=== PATIENT | male | born 1955 | race Caucasian/White ===

== ENCOUNTER 2020-05-05 11:14 | Day surgery (SDC) | payer OTHER ==
[2020-05-03 15:04] LABS: Absolute Lymphocytes (CBC) 2.5 K/uL (0.7-4.9); Basophils % 1.1 % (0-1.3); Hematocrit 38.8 % (39.6-49.0); Lymphocytes % 25.8 % (15.3-44.8); MPV 9.1 fL (7.6-11.3); RBC Red Blood Cell Count 4.47 M/uL (4.33-5.43)
[2020-05-03 15:07] LABS: Protime INR 1.01
--- NOTE | 2020-05-03 15:11 | RAD REPORT ---
EXAM DESCRIPTION: RAD - Chest Pa And Lat (2 Views) - 05/03/2020 2:55 pm CLINICAL HISTORY: preop Chest pain. COMPARISON: No comparisons TECHNIQUE: PA and lateral views of the chest were obtained. FINDINGS: The lungs are hyperexpanded compatible with COPD. The heart is upper limit of normal in si ze. No fracture or aggressive bony process. IMPRESSION: COPD without acute process identified.
[2020-05-05] MEDS ORDERED: NA CHLORIDE 0.9% 500 ML ONE (11:31)
[2020-05-05] MEDS ORDERED: HEPA 1000U/500MLS 2,000 UNIT/1,000 ML BAG IV ONE (13:10)
[2020-05-05] MEDS ORDERED: MIDAZOLAM HCL 2 MG/2 ML INJ ONE ×2 (13:10→13:37)
[2020-05-05] MEDS ORDERED: HEPARIN 5000 UNIT/ML 1 ML VIAL ONE ×2 (13:10→13:11)
[2020-05-05] MEDS ORDERED: NICARDIPINE HCL 25 MG/10 ML IV ONE (13:11)
[2020-05-05] MEDS ORDERED: FENTANYL CITR 100 MCG/2 ML ONE (13:11)
[2020-05-05] MEDS ORDERED: LIDOCAINE 1% MPF 30 ML VIAL ONE (13:12)
[2020-05-05] MEDS ORDERED: HYDRALAZINE HCL 20 MG/ML VIAL ONE (13:34)
[2020-05-05] MEDS ORDERED: CLOPIDOGREL 75 MG TABLET ONE (13:54)
[2020-05-05] MEDS ORDERED: ONDANSETRON 4 MG/2 ML VIAL IV PRN (14:26)
[2020-05-05] MEDS ORDERED: ACETAMINOPHEN 500 MG TAB PO PRN (14:26)
--- NOTE | 2020-05-05 14:37 | P.HP ---
Certification for Inpatient Patient admitted to: Observation With expected LOS: <2 Midnights Patient will require the following post-hospital care: None Practitioner: I am a practitioner with admitting privileges, knowledge of patient current condition, hospital course, and medical plan of care. Services: Services provided to patient in accordance with Admission requirements found in Title 42 Section 412.3 of the Code of Federal Regulations Patient History Date of Service: 05/05/20 Primary Care Provider: Dr. Edmond; Cardiology-Dr. Frias Reason for admission: Post heart catheterization History of Present Illness: 64-year-old male with history of hypertension, hyperlipidemia and CAD with prior stent. Patient admitted as observation status post heart catheterization as recommended by Cardiology. Cardiology performed heart catheterization. Multiple areas of stenosis noted. Patient required angioplasty of stenosis with good recovery. Cardiology preferred the patient to remain Overnite for close monitoring due to multiple angioplasties. I was asked to admit the patient. When I saw the patient he was without chest pain, shortness of breath. Patient stable this time. No other complaints identified. Patient to be transferred to the floor. Allergies No Known Allergies Allergy (Verified 05/03/20 14:29) Home medications list reviewed: Yes Home Medications: Aspirin Chewable [Aspirin Chewable*] 81 mg PO DAILY #90 tab.chew 03/04/16 Atorvastatin Calcium [Lipitor*] 80 mg PO BEDTIME #90 tab 03/04/16 Clopidogrel Bisulfate [Plavix*] 75 mg PO DAILY #90 tablet 03/04/16 Metoprolol Succinate [Toprol Xl*] 50 mg PO DAILY #90 tab 03/04/16 - Past Medical/Surgical History Diabetic: No -: HTN -: Hyperlipidemia -: CAD with prior stent -: Former smoker -: Heart catheterization with stent Psychosocial/ Personal History: Patient - Family History Father -: Cancer Mother -: Cancer Brother -: Hypertension Notes: Brothers Maxx and Albert, and sister, Zulma all have htn - Social History Smoking Status: Former smoker Alcohol use: No CD- Drugs: No Caffeine use: Yes Place of Residence: Home Review of Systems General: As per HPI Eyes: Unremarkable ENT: Unremarkable Respiratory: Unremarkable Cardiovascular: Unremarkable Gastrointestinal: Unremarkable Genitourinary: Unremarkable Musculoskeletal: Unremarkable Integumentary: Unremarkable Neurological: Unremarkable Lymphatics: Unremarkable Physical Examination - Vital Signs Temperature: 97.7 F Blood Pressure: 195/96 Pulse: 75 Respirations: 16 - Physical Exam General: Alert, In no apparent distress, Oriented x3, Cooperative HEENT: Atraumatic Neck: Supple Respiratory: Clear to auscultation bilaterally, Normal air movement Cardiovascular: Normal pulses, Regular rate/rhythm Gastrointestinal: Normal bowel sounds, Soft and benign, Non-distended, No tenderness, No masses, No rebound, No guarding Musculoskeletal: No erythema, No tenderness, No warmth Integumentary: No tenderness/swelling, No erythema, No warmth, No cyanosis Neurological: Normal speech, Normal strength at 5/5 x4 extr, Normal tone, Normal affect - Studies Microbiology Data (last 24 hrs): 05/03/20 14:33 Nasopharnyx Coronavirus COVID-19 PCR - Final Assessment and Plan - Plan Impression: Chest pain with CAD prior stent history status post heart catheterization requiring multiple angioplasties Hypertension Hyperlipidemia Former smoker Plan: Chest pain with CAD prior stent history status post heart catheterization requiring multiple angioplasties: Patient admitted for observation. Patient status post heart catheterization requiring multiple angioplasties due to stenosis. Cardiology recommends to monitor Overnite. Will continue with aspirin, Plavix, Lipitor high dose and metoprolol. Will continue monitor closely. Will provide IV fluids for the next 6 hr then Hep-Lock. Anticipate stability Overnite and discharge in the morning. Case discussed at length with cardiology. Hypertension: Continue metoprolol. Hyperlipidemia: Continue Lipitor Former smoker: Patient has been smoke free for several years. Discharge Plan: Home Plan to discharge in: 24 Hours - Advance Directives Does patient have a Living Will: No Does patient have a Durable POA for Healthcare: No - Code Status/Comfort Care Code Status Assessed: Yes (Patient is full code) Time Spent Managing Pts Care (In Minutes): 55
[2020-05-05] MEDS ORDERED: NA CHLORIDE 0.9% 1,000 ML IV SCH (15:00)
[2020-05-05 18:05] VITALS: BMI 24.0
[2020-05-05] MEDS ORDERED: PNEUMOCOCCAL VACCINE 0.5 ML IMVAC ONE (20:00)
[2020-05-05] MEDS: ASPIRIN EC 81 MG TAB PO SCH (20:58)
[2020-05-05] MEDS: METOPROLOL TAR 50 MG TAB PO SCH (20:58)
[2020-05-05] MEDS ORDERED: ATORVASTATIN 80 MG TAB PO SCH (21:00)
--- NOTE | 2020-05-05 22:25 | OP ---
Date of Procedure: 05/05/2020 Surgeon: GREGORY MARIE Procedure Performed: 1.Selective coronary angiogram. 2.Balloon angioplasty of neosyc-pp-uzz left anterior descending in-stent restenoses, lesion length w as 10 mm, stenosis of 90%. LALO-3 flow before and after angioplasty and 0% residual stenosis. 3.Balloon angioplasty of severe mid septal branch 1, which is relatively large artery using 2.5 x 50 mm NC balloon. The length of the lesion is 12 mm, LALO-3 flow before and after PCI and 0% residual stenosis. Complications: None. Access: Right radial artery 6-Irish closed with TR band. Bleeding: Less than 10 mL. Total Contrast Used: Total amount of contrast used 150 mL. Anesthesia: Total sedation time was 60 minutes. Description Of Procedure: After the risks, benefits, and alternatives were explained to the patient, he signed informed consent. Patient was brought into the cardiac catheterization laboratory, preppe d and draped in usual sterile fashion. We used fentanyl and Versed in incremental doses to achieve a dequate moderate sedation. Then, using the pediatric micropuncture kit, we accessed the right radial artery and placed a 6-Irish slender sheath and we took a 6-Irish Zahl catheter into the aortic ro ot over the J-wire, engaged the left main coronary artery and the right coronary artery and took kristel dard views and found severe mid LAD in-stent restenosis and severe septal branch 1 stenosis. Decided to proceed with intervention. Intervention Details: We gave systemic heparin to assure ACT level above 250 throughout the procedur e. Then, we took the 6-Irish EBU 3.5 guide over a J-wire into the aortic root and engaged the left main coronary artery, then we took a short run-through wire across the stenosis of the mid LAD stent and we took 3.5 x 12 mm NC balloon and inflated it to high pressure 20 atmospheres with full expansio n of the stenotic area and resultant LALO-3 flow with 0% restenosis. Then, we took the run-through i nto the septal branch 1 across the severe stenosis. The vessel is at least 2.5 mm vessel, stenosis w as 95% and we used 2.5 x 50 mm NC balloon and had excellent results with 0% residual stenosis and TILA I-3 flow. This concluded the procedure. We took wires and guide out and took the sheath out and mariah montrell TR band with good hemostasis. The patient received 300 mg of Plavix on the table as he has been taken Plavix at home on a regular basis. Impression: 1.Severe mid left anterior descending in-stent restenosis status balloon angioplasty as outlined abo ve with 0% residual stenosis. 2.Severe first septal branch artery stenosis status post balloon angioplasty as above with excellent results. Recommendations: 1.Observe overnight on telemetry. 2.Continue Plavix 75 mg daily, starts tomorrow and aspirin 81 mg daily, and a large high dose of sta tin, Lipitor 80 mg at bedtime. 3.Aggressive cardiac risk factor modification. 4.The patient is to be followed in the clinic within 4 hours post discharge. SR/MODL Voice ID: [id number] Report ID: [id number]
[2020-05-06 06:43] LABS: Magnesium 2.4 mg/dL (1.8-2.4); Potassium 4.2 mmol/L (3.5-5.1)
[2020-05-06] MEDS: METOPROLOL TAR 50 MG TAB PO SCH (07:49)
[2020-05-06] MEDS: ASPIRIN EC 81 MG TAB PO SCH (07:49)
[2020-05-06 07:52] VITALS: TEMP 98.4
--- NOTE | 2020-05-06 08:00 | DS ---
Date of Discharge: 05/06/2020 The patient was admitted on 05/05/2020 as an outpatient to Dr. Frias's service. He was discharged o n 05/06/2020. Admission Diagnoses: Coronary artery disease and unstable angina. Discharge Diagnoses: Coronary artery disease status post angioplasty of an in-stent restenosis with 0% residual status post balloon angioplasty of the first septal cleat blanker. Discharge Instructions: For him to resume normal activities in 48 hours, stay on a low-fat, low-chol esterol diet. Follow up with Dr. Frias in the next few weeks. He does have an echocardiogram sched uled next . Discharge Prescription: Aspirin, Lipitor, metoprolol, and Plavix. Hospital Course: Mr. Aguirre is 64, was admitted as an outpatient for a heart catheterization, under went an angioplasty of his LAD of an in-stent restenosis. He underwent an angioplasty of septal perf orators that were very successful. Overnight, his right wrist entry site for the catheterization was intact without any hematoma. Telemetry shows sinus rhythm. He has no complaint. His examination i s normal. He will be discharged today to follow up as stated earlier. MARY/LIZBETH Voice ID: [id number] Report ID: [id number]
[2020-05-06 08:31] VITALS: O2SAT 99
[2020-05-06] MEDS ORDERED: ENOXAPARIN 40 MG/0.4 ML SQ SCH (09:00)
[2020-05-06] MEDS ORDERED: CLOPIDOGREL 75 MG TABLET PO SCH (09:00)
[2020-05-06 09:04] VITALS: BP 155/78
--- NOTE | 2020-05-06 11:00 | P.PN ---
Subjective Date of Service: 05/06/20 Primary Care Provider: Dr. Edmond; Cardiology-Dr. Frias Chief Complaint: Post heart catheterization Subjective: Doing well Physical Examination - Vital Signs Temperature: 98.4 F Blood Pressure: 155/78 Pulse: 61 Respirations: 16 Pulse Ox (%): 97 - Physical Exam General: Alert, In no apparent distress, Oriented x3, Cooperative HEENT: Atraumatic Neck: Supple Respiratory: Clear to auscultation bilaterally, Normal air movement Cardiovascular: Normal pulses, Regular rate/rhythm Gastrointestinal: Normal bowel sounds, Soft and benign, Non-distended, No tenderness, No masses, No rebound, No guarding Neurological: Normal speech, Normal strength at 5/5 x4 extr, Normal tone, Normal affect - Studies Laboratory Data (last 24 hrs) 05/06/20 05:35: Sodium 142, Potassium 4.2, BUN 16, Creatinine 1.06, Glucose 97, Magnesium 2.4 Medications List Reviewed: Yes Assessment & Plan Discharge Plan: Home Plan to discharge in: 24 Hours Physician Review Additional Text: Impression: Unstable angina, status post heart catheterization requiring angioplasty of InStent restenoses, CAD Hypertension Hyperlipidemia Tobacco abuse Plan: Patient doing well this time. Patient discharge bar cardiology today. Patient without complaints. Patient will continue with aspirin, Plavix, Lipitor and metoprolol at discharge. Patient will continue with a heart healthy diet. Recommendations for the patient follow up with cardiology as directed. Hospital Course: Mr. Aguirre is 64, was admitted as an outpatient for a heart catheterization, underwent an angioplasty of his LAD of an in-stent restenosis. He underwent an angioplasty of septal perforators that were very successful. Ov ramin, his right wrist entry site for the catheterization was intact without any hematoma. Telemetry shows sinus rhythm. He has no complaint. His examination is normal. He will be discharged today to follow up as stated earlier. Time Spent Managing Pts Care (In Minutes): 55
== END 2020-05-06 09:25 | disposition home or self-care (01) ==
LOC: CCL 11:14 → 4TH 14:13 → CCL 05-06 09:25
PROVIDERS: ATTEND Family Medicine
DX: I25.110 Atherosclerotic heart disease of native coronary artery with unstable angina pectoris (principal); T82.855A Stenosis of coronary artery stent, initial encounter; Z11.59 Encounter for screening for other viral diseases; I10 Essential (primary) hypertension; E78.2 Mixed hyperlipidemia; Z79.82 Long term (current) use of aspirin; Z87.891 Personal history of nicotine dependence; Z82.49 Family history of ischemic heart disease and other diseases of the circulatory system; Z80.9 Family history of malignant neoplasm, unspecified
CPT/HCPCS: 85025; 80048; 36415 ×2; 83735; 85610; 85347; 85730; 71046; 92920; 93454; U0002; C1893; C1725; J0360; J1644 ×2; J2250; J3010; J7040; J7030; J1650

== ENCOUNTER 2021-08-03 11:07 | Day surgery (SDC) | payer OTHER ==
[2021-08-02 11:50] LABS: Absolute Lymphocytes (CBC) 1.8 K/uL (0.7-4.9); Basophils % 1.4 % (0-1.3); Lymphocytes % 23.7 % (15.3-44.8); MPV 8.2 fL (7.6-11.3); RBC Red Blood Cell Count 4.42 M/uL (4.33-5.43)
[2021-08-02 11:52] LABS: Protime INR 1.02
[2021-08-02 12:04] LABS: Potassium 4.5 mmol/L (3.5-5.1)
--- NOTE | 2021-08-02 12:11 | RAD REPORT ---
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 Lungs: No evidence of edema or pneumonia. Emphysematous changes. Pleural: No significant pleural effusions or pneumothorax. Cardiac: The heart size is within normal limits. Bones: No acute fractures. Other: IMPRESSION: No acute cardiopulmonary disease.
--- NOTE | 2021-08-02 14:38 | EKG ---
Test Date: 2021-08-02 Test Time: 10:30:00 Improvement Specialist: CHIDI MEASUREMENT RESULTS: Intervals: Rate: 65 WI: 172 QRSD: 96 QT: 408 QTc: 424 [place]: P: 50 WI: 172 QRS: -53 T: 91 INTERPRETIVE STATEMENTS: Normal sinus rhythm Left axis deviation Possible Lateral infarct, age undetermined T wave abnormality, consider anterior ischemia Abnormal ECG Compared to ECG 03/02/2016 06:55:04 T-wave abnormality now present Possible ischemia now present Sinus arrhythmia no longer present Myocardial infarct finding still present Electronically Signed On 08-02-21 14:38:19 CDT by Jefferson Don
[~2021-08-03 11:07] MED LIST: HEPA 1000U/500MLS 2,000 UNIT/1,000 ML BAG IV ONE
[2021-08-03] MEDS ORDERED: NA CHLORIDE 0.9% 500 ML ONE (11:39)
--- NOTE | 2021-08-03 12:55 | OP ---
Date of Procedure: 08/03/2021 Surgeon: GREGORY MARIE Procedure Performed: Selective coronary angiogram. Indication: Abnormal stress test. Access: Right radial artery 6-Tuvaluan closed with TR band. Complications: None. Bleeding: Less than 2 mL. Description Of Procedure: After risks, benefits, and alternatives were explained, the patient agreed to procedure and signed informed consent. The patient was brought into the cardiac catheterization laboratory, prepped and draped in usual sterile fashion. Then, I accessed the right radial artery us ing pediatric micropuncture kit and a 6-Tuvaluan Slender sheath and took a 5-Tu[place]uan [place] 4.0 catheter into the aortic root, engaged the left main and right coronary artery, took standard views. Then, I removed the catheter and sheath, placed TR band with good hemostasis. Findings: 1.Left main; large and normal. 2.LAD; large vessel with mid LAD stent that is patent with 10% to 20% diffuse ISR. Diagonal branche s are normal. S1 branch is a large branch with mid 80% stenosis. 3.Left circumflex; large, codominant circulation. No significant disease. 4.RCA; large codominant circulation. No significant disease. Conclusions: 1.Patent LAD stent. 2.S1 significant disease and will be left for medical management. Plan: Continue aggressive medical management. Cardiac risk factor modification. SR/MODL Voice ID: [id number] Report ID: [id number]
[2021-08-03] MEDS ORDERED: MIDAZOLAM HCL 2 MG/2 ML INJ ONE (13:02)
[2021-08-03] MEDS ORDERED: FENTANYL CITR 100 MCG/2 ML ONE (13:02)
[2021-08-03] MEDS ORDERED: NITROGLYCERIN 100 MCG/ML SYR (for cath lab use only) IV ONE (13:03)
[2021-08-03] MEDS ORDERED: NITROGLYCERIN/D5W 25 MG/250 ML BTL IV ONE (13:03)
[2021-08-03] MEDS ORDERED: HEPARIN 5000 UNIT/ML 1 ML VIAL ONE (13:03)
[2021-08-03] MEDS ORDERED: VERAPAMIL HCL 10 MG/4 ML VIAL IV ONE (13:03)
[2021-08-03 15:02] VITALS: TEMP 97
[2021-08-03 15:08] VITALS: O2SAT 99
[2021-08-03 15:11] VITALS: BP 166/71
== END 2021-08-03 14:46 | disposition home or self-care (01) ==
LOC: CCL 11:07
PROVIDERS: ATTEND Internal Medicine
DX: I25.10 Atherosclerotic heart disease of native coronary artery without angina pectoris (principal); T82.855A Stenosis of coronary artery stent, initial encounter; I10 Essential (primary) hypertension; E78.5 Hyperlipidemia, unspecified; Z95.5 Presence of coronary angioplasty implant and graft; Z87.891 Personal history of nicotine dependence; Z20.822 Contact with and (suspected) exposure to COVID-19; Z82.49 Family history of ischemic heart disease and other diseases of the circulatory system
CPT/HCPCS: 93005; 85025; 80048; 36415; 85610; 85347 ×2; 85730; 71046; 93454; U0003; C1893; J1644 ×2; J2250; J3010; J7040

== ENCOUNTER 2022-10-04 11:00 | Day surgery (SDC) | payer OTHER ==
[2022-10-03 13:33] LABS: Absolute Lymphocytes (CBC) 1.8 K/uL (0.7-4.9); MCV 85.1 fL (80-100); MPV 8.1 fL (7.6-11.3); RBC Red Blood Cell Count 4.69 M/uL (4.33-5.43)
--- NOTE | 2022-10-03 13:47 | RAD REPORT ---
EXAM DESCRIPTION: RAD - Chest Pa And Lat (2 Views) - 10/03/2022 1:22 pm CLINICAL HISTORY: pre op Chest pain. COMPARISON: Chest Pa And Lat (2 Views) dated 08/02/2021; Chest Pa And Lat (2 Views) dated 05/03/2020 TECHNIQUE: PA and lateral views of the chest were obtained. FINDINGS: The lungs are hyperexpanded compatible with COPD. The heart is upper limit of normal in si ze. No fracture or aggressive bony process. IMPRESSION: COPD without acute process identified. The USPSTF recommends annual screening for lung cancer with low-dose CT (LDCT) in adults aged 50 to 80 years who have a 20 pack-year smoking history and currently smoke or have quit within the past 15 years.
[~2022-10-04 11:00] MED LIST changes: +LIDOCAINE 1% 20 ML MDV ONE
[2022-10-04] MEDS ORDERED: NA CHLORIDE 0.9% 500 ML ONE (11:23)
[2022-10-04] MEDS ORDERED: VERAPAMIL HCL 10 MG/4 ML VIAL IV ONE (11:46)
[2022-10-04] MEDS ORDERED: MIDAZOLAM HCL 2 MG/2 ML INJ ONE (11:46)
[2022-10-04] MEDS ORDERED: HEPARIN 10,000 UNIT/10 ML VIAL IV ONE (11:46)
[2022-10-04] MEDS ORDERED: FENTANYL CITR 100 MCG/2 ML ONE (11:46)
[2022-10-04] MEDS ORDERED: HEPARIN 5000 UNIT/ML 1 ML VIAL ONE (11:46)
[2022-10-04] MEDS ORDERED: ATROPINE SULF 1 MG/10 ML SYR IV ONE (11:47)
[2022-10-04] MEDS ORDERED: NITROGLYCERIN 100 MCG/ML SYR (for cath lab use only) IV ONE (11:47)
[2022-10-04 15:06] VITALS: BP 149/83; O2SAT 98
--- NOTE | 2022-10-04 18:51 | OP ---
Date of Procedure: 10/04/2022 Surgeon: GREGORY MARIE Procedures Performed: 1.Selective coronary angiogram. 2.Left heart catheterization. Indication: Abnormal stress test. Access: Right radial artery 6-Syrian closed with TR band. Complications: None. Estimated Blood Loss: Bleeding less than 10 mL. Description Of Procedure: After risks, benefits, and alternatives were explained, patient agreed to proceed and signed informed consent. Patient was brought to the cardiac catheterization laboratory a nd prepped and dressed in usual sterile fashion. Then I accessed right radial artery using pediatric micropuncture kit. I gave fentanyl and Versed in incremental doses to achieve adequate moderate sed ation. Total sedation time was 25 minutes. Then, I used pediatric micropuncture kit to establish ac cess to right radial artery, put 6-Syrian Slender sheath and took 5-Syrian [place] 4 catheter in the ao rtic root, engaged left main and right coronary artery, took standard views and the catheter was push ed over the wire into the LV, measured the LVEDP, and pulling back did not record any gradient. I re moved the catheter and sheath, placed TR band for good hemostasis. Findings: 1.Left main is large and normal. 2.LAD: Large vessel with patent mid LAD stent and has about 10%-20% ISR. There is a large septal b ranch that comes off the LAD with mid 70%-80% stenosis that has been chronically stable and then LAD appears normal after that. 3.Left circumflex is large and codominant and normal. 4.RCA is large and codominant with proximal 20% stenosis. 5.Normal LVEDP at 6 mmHg. Conclusion: 1.Patent left anterior descending artery stent with mild in-stent restenosis. 2.Significant septal 1 branch stenosis, which is chronic and stable. 3.Mild coronary artery disease elsewhere. Plan: Continue current management, medical therapy, and aggressive cardiac risk factor modification. SR/MODL Voice ID: [id number] Report ID: [id number]
== END 2022-10-04 14:20 | disposition home or self-care (01) ==
LOC: PRE 11:00
PROVIDERS: ATTEND Internal Medicine
DX: I25.10 Atherosclerotic heart disease of native coronary artery without angina pectoris (principal); T82.855A Stenosis of coronary artery stent, initial encounter; I10 Essential (primary) hypertension; E78.5 Hyperlipidemia, unspecified; Z87.891 Personal history of nicotine dependence; Z79.82 Long term (current) use of aspirin; Z79.899 Other long term (current) drug therapy; Z82.49 Family history of ischemic heart disease and other diseases of the circulatory system
CPT/HCPCS: 85025; 80048; 36415; 85610; 85730; 71046; 93458; C1893; Q9966; J1644 ×2; J2250; J3010; J7040; J0461

== ENCOUNTER 2024-01-31 17:08 | Inpatient (IN) | payer OTHER ==
[2024-01-31] MEDS ORDERED: MORPHINE 4 MG/ML SYR ONE ×2 (17:45→18:56)
[2024-01-31] MEDS ORDERED: ONDANSETRON 4 MG (ODT) TAB ONE (17:45)
[2024-01-31] MEDS ORDERED: ONDANSETRON 4 MG/2 ML VIAL ONE (17:46)
[2024-01-31 18:01] LABS: Absolute Basophils 0.1 K/uL (0-0.5); Absolute Eosinophils 0.2 K/uL (0-0.5); Absolute Monocytes 0.6 K/uL (0.1-1.3); Absolute Neutrophil 8.6 K/uL (1.8-8.0); Basophils % 0.9 % (0-1.3); Eosinophils % 1.8 % (0-4.4); Hematocrit 30.3 % (39.6-49.0); Hemoglobin 10.6 g/dL (13.6-17.9); MCV 82.7 fL (80-100); Monocytes % 5.6 % (3.3-12.3); Neutrophils % 74.7 % (41.7-73.7); Platelets 241 thou/uL (152-406); RBC Red Blood Cell Count 3.67 M/uL (4.33-5.43); Red Cell Distribution Width 15.3 % (12.1-15.2)
[2024-01-31 18:13] LABS: Anion Gap 10.8 mEq/L (5.0-15.0); Potassium 3.8 mEq/L (3.5-5.1)
--- NOTE | 2024-01-31 18:41 | RAD REPORT ---
EXAM DESCRIPTION: RAD - Femur Left - 01/31/2024 6:03 pm CLINICAL HISTORY: PAIN COMPARISON: No comparisons TECHNIQUE: Left femur, 2 views. FINDINGS: Displaced femoral neck fracture, with cranial apex angulation. There is no dislocation or periosteal reaction noted. No acute or suspicious bony finding. Vascular calcifications. IMPRESSION: Displaced femoral neck fracture as above.
--- NOTE | 2024-01-31 18:43 | RAD REPORT ---
EXAM DESCRIPTION: RAD - Hip Left 2 View - 01/31/2024 6:04 pm CLINICAL HISTORY: PAIN COMPARISON: No comparisons TECHNIQUE: Left hip, AP and frogleg views of the left hip. FINDINGS: Displaced femoral neck fracture with cranial apex angulation. Femoroacetabular joint shows preserved articulation. No acute or destructive bony process seen. IMPRESSION: Displaced femoral neck fracture with cranial apex again old.
--- NOTE | 2024-01-31 18:44 | RAD REPORT ---
EXAM DESCRIPTION[facility] 6:04 pm CLINICAL HISTORY: preop. Hypertension COMPARISON: Chest Single View dated 02/28/2023; Chest Pa And Lat (2 Views) dated 10/03/2022; Chest Pa And Lat (2 Views) dated 08/02/2021; Chest Pa And Lat (2 Views) dated 05/03/2020 TECHNIQUE: Portable AP view of the chest. FINDINGS: The lungs are clear. No pneumothorax or effusion. The cardiomediastinal contours are unre markable. IMPRESSION: No acute cardiopulmonary process.
--- NOTE | 2024-01-31 18:56 | EDPHYS ---
Physician Documentation [facility] Name: Mandeep Aguirre Age: 68 yrs Sex: Male : 1955 Arrival Date: 01/31/2024 Time: 17:08 Bed 20 Private MD: ED Physician Keanu Barker HPI: 01/30 18:26 This 68 yrs old Male presents to ER via EMS with complaints of hip pain. kb 18:26 Patient is a 68-year-old male who presents for left hip pain after turning around and kb falling onto left hip just prior to arrival. Denies any other injury or trauma. Denies hitting head. Denies LOC.. Historical: - Allergies: 17:11 No Known Allergies; mb9 - Home Meds: 17:11 atorvastatin 80 mg Oral tab 1 tab once daily [Active]; metoprolol succinate 50 mg Oral mb9 Tb24 1 tab once daily [Active]; verapamil 120 mg Oral tab 120 mg [Active]; - PMHx: 17:11 Dementia; Hypertension; Myocardial infarction; mb9 - PSHx: 17:11 None; mb9 - Immunization history:: Adult Immunizations up to date. - Social history:: Smoking status: Patient denies any tobacco usage or history of. ROS: 18:26 Constitutional: As per HPI kb Exam: 18:26 Constitutional: This is a well developed, well nourished patient who is awake, alert, kb and in no acute distress. Head/Face: Normocephalic, atraumatic. ENT: Moist Mucous membranes Cardiovascular: Regular rate Respiratory: Respirations even and unlabored. No increased work of breathing. Talking in full sentences Skin: Warm, dry with normal turgor. Normal color. Neuro: Awake and alert, GCS 15, oriented to person, place, time, and situation. Moves all extremities. Normal gait. 18:26 Musculoskeletal/extremity: Extremities: grossly normal except: noted in the left hip: decreased ROM, pain, tenderness, ROM: limited active range of motion, limited active range of motion due to pain, Circulation is intact in all extremities. Sensation intact. Weight bearing: is unable to bear weight, Vital Signs: 17:10 BP 165 / 79; Pulse 74; Resp 18; Temp 97.8; Pulse Ox 100% ; Weight 75.75 kg; Height 5 mb9 ft. 9 in. ; Pain 7/10; 17:42 BP 158 / 75; Pulse 72; Resp 18; Pulse Ox 98% on R/A; mb9 19:00 BP 173 / 89; Pulse 90; Resp 18; Pulse Ox 100% on R/A; mb9 19:15 BP 160 / 80; Pulse 84; Resp 16; Temp 98.3; Pulse Ox 96% on 2 lpm NC; pf1 20:00 BP 150 / 86; Pulse 94; Resp 18; Temp 98.3; Pulse Ox 95% on 2 lpm NC; pf1 17:10 Body Mass Index 24.66 (75.75 kg, 175.26 cm) mb9 17:10 Pain Scale: Adult mb9 MDM: 17:12 Patient medically screened. kb 18:29 Differential diagnosis: hip fracture, intertrochanteric fracture, femoral neck kb fracture, femoral shaft fracture, strain. Data reviewed: vital signs, nurses notes. Historians other than the Patient: EMS: [facility]. 18:50 Consideration of Admission/Observation Patient was admitted/placed on observation. kb Escalation of care including admission/observation considered. Management of patient was discussed with the following: Regional Driver: Dr Evans accepts pt for consult. Would like pt admitted to hospitalist/. Primary Care Provider: Dr Álvarez accepts pt for admission. Counseling: I had a detailed discussion with the patient and/or guardian regarding the historical points, exam findings, and any diagnostic results supporting the discharge/admit diagnosis, lab results, radiology results, the need for further work-up and treatment in the hospital. 01/30 17:47 Order name: CBC with Diff; Complete Time: 18:05 kb 01/30 17:47 Order name: BMP; Complete Time: 18:14 kb 01/30 17:19 Order name: Femur Left XRAY; Complete Time: 18:42 kb 01/30 17:19 Order name: Hip Left 2 View XRAY; Complete Time: 18:55 kb 01/30 17:47 Order name: Chest Single View XRAY; Complete Time: 18:45 kb 01/30 17:47 Order name: EKG; Complete Time: 17:48 kb 01/30 17:47 Order name: IV Start; Complete Time: 18:03 kb 01/30 17:47 Order name: EKG - Nurse/Tech; Complete Time: 18:02 kb Administered Medications: 17:46 CANCELLED (Physician Discretion): morphine4 mg IM once kb 17:46 CANCELLED (Duplicate Order): ondansetron4 mg PO once kb 18:00 Drug: Ondansetron IVP 4 mg IVP once; over 2 minutes Route: IVP; Site: right forearm; mb9 19:22 Follow up: Response: No adverse reaction mb9 18:02 Drug: morphine IVP or IV 4 mg IVP once over 4 mins Route: IVP; Infused Over: 4 mins; mb9 Site: right forearm; 19:22 Follow up: Response: No adverse reaction mb9 18:59 Drug: morphine IVP or IV 4 mg IVP once over 4 mins Route: IVP; Infused Over: 4 mins; mb9 Site: right forearm; 19:22 Follow up: Response: No adverse reaction mb9 Disposition: 20:45 Co-signature as Attending Physician, Keanu Barker MD I reviewed the patient's care rt provided by the Advanced Practice Provider and agree with the diagnosis and treatment plan. Disposition Summary: 01/31/24 18:55 Hospitalization Ordered Notes: Hospitalization Status: Inpatient Admission kb Provider: Hoang Álvarez Location: Telemetry/MedSurg (Inpatient) kb Condition: Stable kb Problem: new kb Symptoms: are unchanged kb Bed/Room Type: Standard Room Assignment: 404(01/31/24 19:11) rv1 Diagnosis - Left femoral neck fracture kb Forms: - Medication Reconciliation Form kb - SBAR form kb - Leadership Thank You Letter kb Signatures: Dispatcher [employer] Janet Lopez FNP-C FNP-Peggy Pitts RN RN mb9 Keanu Barker MD MD rt Nuris Stroud rv1 Corrections: (The following items were deleted from the chart) 17:46 17:45 morphine IM 4 mg IM once ordered. kb kb 17:46 17:45 Ondansetron PO 4 mg PO once ordered. kb kb 18:55 18:50 Management of patient was discussed with the following: Hospitalist: Dr Skylar winters accepts pt for admission. Regional Driver: Dr Evans accepts pt for consult. Would like pt admitted to hospitalist/. kb 19:11 18:55 kb rv1
--- NOTE | 2024-01-31 18:56 | ER ---
Nurse's Notes [facility] Name: Mandeep Aguirre Age: 68 yrs Sex: Male : 1955 Arrival Date: 01/31/2024 Time: 17:08 Bed 20 Private MD: Diagnosis: Left femoral neck fracture Presentation: 01/30 17:10 Chief complaint: EMS states: "toned out for walking, tripping, and falling on the mb9 concrete. Pt states he has pain in his left hip, knee, and skin tear on left elbow. No active bleeding noted. Pt denies LOC, did not hit head, and does not take blood thinners.". Coronavirus screen: Vaccine status: Patient reports receiving the 2nd dose of the covid vaccine. Ebola Screen: No symptoms or risks identified at this time. Initial Sepsis Screen: Does the patient meet any 2 criteria? No. Patient's initial sepsis screen is negative. Does the patient have a suspected source of infection? No. Patient's initial sepsis screen is negative. Risk Assessment: Do you want to hurt yourself or someone else? Patient reports no desire to harm self or others. Onset of symptoms was January 31, 2024. 17:10 Method Of Arrival: EMS: [facility] mb9 17:10 Acuity: CARLIE 3 mb9 Triage Assessment: 17:12 General: Appears in no apparent distress. Behavior is calm, cooperative. Pain: mb9 Complains of pain in pelvis and left leg Pain radiates to left patella Pain currently is 7 out of 10 on a pain scale. Quality of pain is described as throbbing, Pain began suddenly. EENT: No signs and/or symptoms were reported regarding the EENT system. Neuro: [place] Agitation-Sedation Scale (RASS): 0 - Alert and Calm Level of Consciousness is awake, alert, obeys commands, Oriented to person, place, time, situation, Appropriate for age Denies weakness dizziness. Cardiovascular: Patient's skin is warm and dry. Respiratory: Airway is patent Respiratory effort is even, unlabored, Respiratory pattern is regular, symmetrical. GI: No signs and/or symptoms were reported involving the gastrointestinal system. : No signs and/or symptoms were reported regarding the genitourinary system. Derm: Skin is pink, warm \\T\\ dry. Musculoskeletal: Range of motion: limited in left hip and left knee. Historical: - Allergies: 17:11 No Known Allergies; mb9 - Home Meds: 17:11 atorvastatin 80 mg Oral tab 1 tab once daily [Active]; metoprolol succinate 50 mg Oral mb9 Tb24 1 tab once daily [Active]; verapamil 120 mg Oral tab 120 mg [Active]; - PMHx: 17:11 Dementia; Hypertension; Myocardial infarction; mb9 - PSHx: 17:11 None; mb9 - Immunization history:: Adult Immunizations up to date. - Social history:: Smoking status: Patient denies any tobacco usage or history of. Screenin:[facility] ED Fall Risk Assessment (Adult) History of falling in the last 3 months, mb9 including since admission Yes- single mechanical fall (1 pt) Confusion or Disorientation No (0 pts) Intoxicated or Sedated No (0 pts) Impaired Gait Yes (1 pt) Mobility Assist Device Used No (0 pt) Altered Elimination No (0 pt) Score/Fall Risk Level 3 or more points = High Risk Oriented to surroundings, Maintained a safe environment, Educated pt \\T\\ family on fall prevention, incl call for assistance when getting out of bed. Abuse screen: Denies threats or abuse. Nutritional screening: No deficits noted. Tuberculosis screening: No symptoms or risk factors identified. Assessment: 17:13 Reassessment: see triage assessment. mb9 18:48 Reassessment: Patient and/or family updated on plan of care and expected duration. Pain mb9 level reassessed. Patient is alert, oriented x 3, equal unlabored respirations, skin warm/dry/pink. Patient states feeling better. Patient states symptoms have improved. 19:00 General: Appears in no apparent distress. uncomfortable, well groomed, well developed, pf1 Behavior is calm, cooperative, appropriate for age, quiet. 19:00 Pain: Complains of pain in left hip Pain began today. Neuro: No deficits noted. Level pf1 of Consciousness is awake, alert, obeys commands, Oriented to Appropriate for age cognitive impairment per stated . Cardiovascular: No deficits noted. Capillary refill < 3 seconds Patient's skin is warm and dry. Respiratory: Airway is patent Respiratory effort is even, unlabored, Respiratory pattern is regular, symmetrical, Ventilator assessment: Patient currently on 02 2LNC after morphine was giving. GI: No deficits noted. No signs and/or symptoms were reported involving the gastrointestinal system. : No deficits noted. No signs and/or symptoms were reported regarding the genitourinary system. EENT: No deficits noted. No signs and/or symptoms were reported regarding the EENT system. Derm: Wound noted left hand and left elbow Wound is abrasions. Musculoskeletal: Reports pain in left hip and left leg. 20:00 Reassessment: Patient appears in no apparent distress at this time. Patient and/or pf1 family updated on plan of care and expected duration. Pain level reassessed. Patient is alert, oriented x 3, equal unlabored respirations, skin warm/dry/pink. 20:14 Reassessment: SEE Reyes confirmed ready for patient on the 4th floor. pf1 Vital Signs: 17:10 BP 165 / 79; Pulse 74; Resp 18; Temp 97.8; Pulse Ox 100% ; Weight 75.75 kg; Height 5 mb9 ft. 9 in. ; Pain 7/10; 17:42 BP 158 / 75; Pulse 72; Resp 18; Pulse Ox 98% on R/A; mb9 19:00 BP 173 / 89; Pulse 90; Resp 18; Pulse Ox 100% on R/A; mb9 19:15 BP 160 / 80; Pulse 84; Resp 16; Temp 98.3; Pulse Ox 96% on 2 lpm NC; pf1 20:00 BP 150 / 86; Pulse 94; Resp 18; Temp 98.3; Pulse Ox 95% on 2 lpm NC; pf1 17:10 Body Mass Index 24.66 (75.75 kg, 175.26 cm) mb9 17:10 Pain Scale: Adult mb9 ED Course: 17:10 Patient arrived in ED. mb9 17:11 Triage completed. mb9 17:12 Janet Mccracken FNP-C is PHCP. kb 17:12 Keanu Barker MD is Attending Physician. kb 17:12 Arm band placed on. mb9 17:13 Peggy Reina RN is Primary Nurse. mb9 17:13 Placed in gown. Bed in low position. Call light in reach. Side rails up X 1. Provided mb9 Education on: pressing call light if needing anything. Client placed on continuous cardiac and pulse oximetry monitoring. NIBP monitoring applied. Door closed. Noise minimized. Warm blanket given. 17:13 No provider procedures requiring assistance completed. mb9 18:03 Inserted saline lock: 18 gauge in right forearm, using aseptic technique. mb9 18:03 EKG done, by ED staff, reviewed by Janet GAMEZ. mb9 18:05 Femur Left XRAY In Process Unspecified. EDMS 18:05 Hip Left 2 View XRAY In Process Unspecified. EDMS 18:06 Chest Single View XRAY In Process Unspecified. EDMS 18:55 Hoang Álvarez MD is Hospitalizing Provider. kb 19:00 Report given to SEE Maya. mb9 20:20 Patient admitted, IV remains in place. pf1 Administered Medications: 17:46 CANCELLED (Physician Discretion): morphine4 mg IM once kb 17:46 CANCELLED (Duplicate Order): ondansetron4 mg PO once kb 18:00 Drug: Ondansetron IVP 4 mg IVP once; over 2 minutes Route: IVP; Site: right forearm; mb9 19:22 Follow up: Response: No adverse reaction mb9 18:02 Drug: morphine IVP or IV 4 mg IVP once over 4 mins Route: IVP; Infused Over: 4 mins; mb9 Site: right forearm; 19:22 Follow up: Response: No adverse reaction mb9 18:59 Drug: morphine IVP or IV 4 mg IVP once over 4 mins Route: IVP; Infused Over: 4 mins; mb9 Site: right forearm; 19:22 Follow up: Response: No adverse reaction mb9 Medication: 17:13 VIS not applicable for this client. mb9 Outcome: 18:55 Decision to Hospitalize by Provider. kb 20:20 Admitted to Med/surg accompanied by tech, family with patient, via stretcher, room 404, pf1 with oxygen, with chart, Report called to faxed to [facility] at 2034 20:20 Condition: stable 20:20 Instructed on the need for admit, Demonstrated understanding of instructions, to family 20:23 Patient left the ED. pf1 Signatures: Dispatcher [employer] EDJanet Farah FNP-C FNP-Peggy Pitts RN RN mb9 Fiordaliza Meza RN RN pf1 Corrections: (The following items were deleted from the chart) 17:47 17:10 Acuity: CARLIE 4 mb9 mb9
[2024-01-31] MEDS: NA CHLORIDE 0.9% 1,000 ML IV SCH (20:58)
[2024-01-31] MEDS: ONDANSETRON 4 MG/2 ML VIAL IV PRN (23:14)
[2024-01-31] MEDS: MORPHINE 4 MG/ML SYR IV PRN (23:14)
[2024-01-31 23:53] VITALS: BMI 22.5
[2024-02-01 04:11] LABS: Absolute Basophils 0.1 K/uL (0-0.5); Absolute Lymphocytes (CBC) 1.4 K/uL (0.7-4.9); Absolute Monocytes 1.1 K/uL (0.1-1.3); Basophils % 0.7 % (0-1.3); Eosinophils % 0.3 % (0-4.4); Hematocrit 32.5 % (39.6-49.0); Hemoglobin 11.3 g/dL (13.6-17.9); Lymphocytes % 8.5 % (15.3-44.8); MCH 28.9 pg (27.0-35.0); MCHC 34.7 g/dL (32.0-36.0); MCV 83.5 fL (80-100); MPV 8.2 fL (7.6-11.3); Monocytes % 6.6 % (3.3-12.3); Neutrophils % 83.9 % (41.7-73.7); Nucleated Red Blood Cells % 0.1 % (0-0); Platelets 244 thou/uL (152-406); Red Cell Distribution Width 15.3 % (12.1-15.2)
[2024-02-01 04:24] LABS: Anion Gap 11.1 mEq/L (5.0-15.0); Potassium 4.1 mEq/L (3.5-5.1)
[2024-02-01] MEDS: Ringers Lactate 1,000 ML IV ONE ×2 (07:31→09:50)
[2024-02-01] MEDS: CEFAZOLIN SODIUM 1 GM/VIAL ONE (07:32)
[2024-02-01] MEDS: METOPROLOL TARTRATE 5 MG/5 ML INJ IV ONE (07:42)
[2024-02-01] MEDS: BUPIVACAINE 0.25% PF 10 ML VIAL ONE (07:45)
[2024-02-01] MEDS: METOPROLOL TARTRATE 5 MG/5 ML INJ IV STA (07:47)
[2024-02-01] MEDS: NITROGLYCERIN 1 GM PKT TD ONE (07:55)
[2024-02-01] MEDS: SUCCINYLCHOLINE 20 MG/ML (10 ML) IV ONE (08:00)
[2024-02-01] MEDS: BUPIVACAINE 0.75% (PF) 2 ML SP ONE (08:03)
[2024-02-01] MEDS ORDERED: propofoL 200 MG/20 ML VIAL IV ONE (08:07)
[2024-02-01] MEDS ORDERED: Phenylephrine HCl 10 MG/ML 1 ML VIAL ONE (08:07)
[2024-02-01] MEDS ORDERED: FENTANYL CITR 100 MCG/2 ML ONE (08:07)
[2024-02-01] MEDS: CEFTRIAXONE 1,000 MG in NA CHLORIDE 0.9% 50 ML IVPB SCH (09:00)
[2024-02-01] MEDS: TRANEXAMIC ACID 1,000 MG/10 ML VIAL IV ONE (09:05)
--- NOTE | 2024-02-01 09:22 | CON ---
Date of Consultation: 02/01/2024 Reason For Consultation: Left hip pain. History Of Present Illness: Mandeep is a 68-year-old male presented to the ER yesterday after sustain ing a fall onto his left side with subsequent pain and inability to bear weight. The patient had x-r ays in the emergency room that demonstrated a displaced left femoral neck fracture. Prior to the fal l, the patient states that he uses a walker to help mobilize. He lives at home. He denies any muscu loskeletal complaints at this time. Review of Systems: As above, otherwise negative. Past Medical History: Includes hypertension, history of NM. Past Surgical History: None. Medications: Atorvastatin, metoprolol, verapamil. Allergies: NO KNOWN DRUG ALLERGIES. Social History: Denies tobacco or alcohol use. Family History: Reviewed and noncontributory. Physical Examination: General: No apparent distress. HEENT: Normocephalic, atraumatic. Neck: Supple. Cardiovascular: Brisk cap refill to all digits. Chest: Nonlabored breathing. Abdomen: Nondistended. Psychiatric: Responsive to exam. Musculoskeletal: Bilateral upper extremities functional range of motion without pain. No gross defo rmities. No obvious dislocations. Right lower extremity functional range of motion without pain. N o gross deformities. No obvious dislocations. Left lower extremity pain with range of motion, left hip. Tenderness to palpation to the left hip. No tenderness to palpation over the knee, tibia or an kle. Sensation grossly intact at the dorsal and plantar foot. Brisk cap refill to all digits. Diagnostic Studies: X-rays of the left hip demonstrate a displaced left femoral neck fracture. Assessment And Plan: Mandeep is a 68-year-old male with a left displaced femoral neck fracture. I di scussed with the patient at length the diagnosis as well as treatment options. Given the displaced f racture, I recommended left partial hip arthroplasty. Risks and benefits associated with the procedu re were discussed with the patient at length and he expressed understanding. We will proceed with gonzales martínez later this morning. CV/MODL Voice ID: [id number] Report ID: [id number]
[2024-02-01 09:24] LABS: Specific Gravity 1.016 (1.005-1.030); Sqamous Epithelial None Seen /HPF (None Seen); Urine Bacteria <20 /HPF (<20); Urine Bilirubin NEGATIVE (Negative); Urine Blood 2+ (Negative); Urine Clarity Turbid (Clear); Urine Color Light-Yellow (Yellow); Urine Culture Reflex Order REFLEXED; Urine Glucose NEGATIVE (Negative); Urine Ketones NEGATIVE (Negative); Urine Micro Reflex YN NO BILL MICROSCOPIC; Urine Nitrite NEGATIVE (Negative); Urine Protein TRACE (Negative); Urine RBC 21-50 /HPF (None Seen); Urine Urobilinogen Normal (Normal); Urine WBC >50 /HPF (<5); Urine WBC Clump Rare /HPF (None Seen)
[2024-02-01] MEDS: BUPIVACAINE 0.25% PF 30 ML VIAL ONE (10:27)
--- NOTE | 2024-02-01 11:00 | P.BOP ---
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
[2024-02-01] MEDS: KETOROLAC 30 MG/ML INJ ONE (11:11)
[2024-02-01] MEDS ORDERED: DOCUSATE NA 100 MG CAP PO PRN (11:13)
[2024-02-01] MEDS ORDERED: TRAMADOL HCL 50 MG TAB PO PRN (11:13)
[2024-02-01 11:39] LABS: Hematocrit 28.6 % (39.6-49.0); Hemoglobin 9.8 g/dL (13.6-17.9)
--- NOTE | 2024-02-01 11:49 | RAD REPORT ---
EXAM DESCRIPTION: RAD - Hip Left 2 View - 02/01/2024 11:43 am CLINICAL HISTORY: postop Postop left hip fracture COMPARISON: Hip Left 2 View dated 01/31/2024 FINDINGS: Left total hip arthroplasty has been performed. No unexpected hardware finding. Lateral sk in eve seen.
--- NOTE | 2024-02-01 12:13 | HP ---
Date of Admission: 02/01/2024 Chief Complaint: Fall and hip pain. History Of Present Illness: This is a 68-year-old male patient who lives at home with family, fell down at home and started complaining of left hip pain. The patient was brought into the emergency room and was diagnosed as having left hip fracture and was admitted to the hospital. Orthopedic consultation was requested from Dr. Evans, who is planning to do surgery this morning. I saw him prior to surgery this morning. He denies any recent febrile illness. No cough, cold, congestion, fever, chills. No chest pain, shortness of breath. No nausea, vomiting, diarrhea. Allergies: NO KNOWN ALLERGIES. Medications: Aspirin 81 mg daily, atorvastatin 80 mg daily at bedtime, lisinopril 20 mg daily at bedtime, metoprolol succinate 50 mg daily, amlodipine 5 mg daily, tamsulosin 0.4 mg daily. Review of Systems: Musculoskeletal: As mentioned above. All other systems reviewed and negative. Past Medical History: Significant for COPD, hypertension, hyperlipidemia, coronary artery disease, benign prostatic hypertrophy, cervical spondylosis, cervical spinal stenosis, and anemia. Past Surgical History: Coronary artery stent placement March 02, 2016. Family History: Father , had congestive heart failure and systemic lupus erythematosus. Mother , had throat cancer. Brother has coronary artery disease and hypertension. Sister with hypertension. Social History: Prior history of smoking, but he quit smoking on March 02, 2016, and quit using alcohol January 2023. Prior to that he was drinking 4-6 beers a day. Physical Examination: Vital Signs: This morning, temperature 98.6, pulse 109, respiratory rate 19, blood pressure 150/85, oxygen saturation 96%, height 5 feet 9 inches, weight 152 pounds. General: Awake, alert, oriented, not in distress. HEENT: Head atraumatic, normocephalic. Conjunctivae nonerythematous. Sclerae white. Mouth, no thrush or edema noted. Ears/Nose, no mass, lesion, discharge noted. Neck: Supple. No JVD, lymph nodes, bruit, thyromegaly noted. Lungs: Bilateral good equal air entry. Clear to auscultation. No rhonchi. No rales. Heart: Normal heart sounds, no murmur or gallop. Abdomen: Soft, bowel sounds normal. No guarding, rigidity, tenderness, mass, hepatosplenomegaly, distention, or bruit noted. Extremities: Left foot is externally rotated. Skin: No rash, ulcer, cellulitis. Lymphatics: No lymph node enlargement in neck, supraclavicular, infraclavicular region. Neuro: No focal neurological deficit. Chest: Unremarkable. External Genitalia: Deferred. Rectal: Deferred. Laboratory Data: Yesterday, white count 11.5, hemoglobin 10.6, platelets 241. This morning, white count 16.6, hemoglobin 11.3, platelets 244. For chemistry yesterday, sodium 140, potassium 3.8, chloride 108, bicarb 25, BUN 29, creatinine 1.26, glucose 109. This morning, sodium 138, potassium 4.1, chloride 105, bicarb 26, BUN 22, creatinine 1.14, glucose 129. X-ray of the hip and femur shows displaced femoral neck fracture on the left side. Chest x-ray, no acute cardiopulmonary changes. EKG normal sinus, no acute ST-T changes. Impression: 1. Left femoral neck fracture. 2. Anemia, chronic, unspecified. 3. Coronary artery disease. 4. Hypertension. 5. Hyperlipidemia. 6. Chronic obstructive pulmonary disease. 7. Chronic anti-platelet therapy. 8. Benign prostatic hypertrophy. 9. Cervical spinal stenosis. Plan: Admit the patient to hospital for further evaluation and management of this problem. The patient is appropriate for inpatient and is expected to spend 2 midnights in hospital. The patient is at acceptable risk from planned left hip fracture surgery, which will be done this morning by Dr. Evans. After surgery, pain medication will be given per order and we will give DVT prophylaxis per order. We will consult Physical therapy after surgery. For hypertension, this morning when I saw him, I ordered 1 dose of IV Lopressor 5 mg slow IV push and nitroglycerin ointment 1 time dose prior to surgery. After the surgery, we will continue antihypertensive medication per order, monitor blood pressure and make adjustment on blood pressure medication as it becomes necessary. For hyperlipidemia, we will continue statin therapy and no need for further intervention. For coronary artery disease, we will go ahead and continue his anti-platelet therapy after surgery and no need for further intervention for that. We will continue his metoprolol also per order. For COPD, there is no need for any further intervention, if necessary we will consider nebulizer treatment as needed. For leukocytosis, we will get a urine specimen. The patient will have a Gamboa catheter placement prior to surgery and I have requested nurse in the holding area to go ahead and collect a urine specimen, sent it for urinalysis and culture and then start Rocephin 1 g IV q.12 hours. Details and plan of treatment discussed with the patient. I will see him tomorrow for followup. SANDRA/LIZBETH Voice ID: [id number] MTDD
[2024-02-01] MEDS: AMLODIPINE 5 MG TAB PO ONE (13:45)
[2024-02-01] MEDS: METOPROLOL TAR 25 MG TAB PO ONE (13:45)
[2024-02-01] MEDS ORDERED: HOME MED 1 EA UNK (Omeprazole [Prilosec] 40 MG Capsule.Dr) PO SCH (13:45)
[2024-02-01] MEDS: ATORVASTATIN 20 MG TAB PO SCH (21:06)
[2024-02-01] MEDS: MEMANTINE HCL 10 MG TABLET PO SCH (21:06)
[2024-02-01] MEDS: FAMOTIDINE 20 MG TAB PO SCH (21:06)
[2024-02-01] MEDS: CARBIDOPA/LEVODOPA 25/100 TAB PO SCH (21:07)
[2024-02-01] MEDS: METOPROLOL TAR 25 MG TAB PO SCH (21:07)
[2024-02-02] MEDS: ACETAMINOPHEN 325 MG TABLET PO PRN (01:46)
[2024-02-02] MEDS: PANTOPRAZOLE 40MG TABLET PO SCH (05:31)
[2024-02-02 07:48] LABS: Absolute Basophils 0.1 K/uL (0-0.5); Absolute Eosinophils 0.1 K/uL (0-0.5); Absolute Monocytes 1.1 K/uL (0.1-1.3); Absolute Neutrophil 11.2 K/uL (1.8-8.0); Basophils % 0.5 % (0-1.3); Eosinophils % 1.1 % (0-4.4); Hematocrit 25.5 % (39.6-49.0); Hemoglobin 8.8 g/dL (13.6-17.9); Lymphocytes % 7.4 % (15.3-44.8); MCH 28.7 pg (27.0-35.0); MCHC 34.3 g/dL (32.0-36.0); MCV 83.7 fL (80-100); MPV 8.1 fL (7.6-11.3); Monocytes % 8.4 % (3.3-12.3); Neutrophils % 82.6 % (41.7-73.7); Nucleated Red Blood Cells % 0.1 % (0-0); Platelets 172 thou/uL (152-406); RBC Red Blood Cell Count 3.05 M/uL (4.33-5.43); Red Cell Distribution Width 15.5 % (12.1-15.2)
[2024-02-02 07:56] LABS: AST/SGOT 35 U/L (15-37); Albumin 2.7 g/dL (3.4-5.0); Albumin/Globulin Ratio 0.8 (1.1-1.8); Alkaline Phosphatase 113 U/L (45-117); Anion Gap 9.7 mEq/L (5.0-15.0); BUN Blood Urea Nitrogen 23 mg/dL (7-18); Bicarbonate 27 mEq/L (21-32); Globulin 3.4 g/dL (2.3-3.5); Glomerular Filtration Rate 56 ml/min (=/>90); Glucose Level 104 mg/dL (74-106); Magnesium 1.8 mg/dL (1.6-2.4); Potassium 3.7 mEq/L (3.5-5.1); Protein, Total 6.1 g/dL (6.4-8.2); Sodium Level 141 mEq/L (136-145)
[2024-02-02 08:02] LABS: ALT/SGPT < 10 U/L (16-61)
[2024-02-02] MEDS: ENOXAPARIN 40 MG/0.4 ML SQ SCH (08:11)
[2024-02-02] MEDS: FOLIC ACID 1 MG TABLET PO SCH (08:14)
[2024-02-02] MEDS: TAMSULOSIN 0.4 MG SR CAP PO SCH (08:14)
[2024-02-02] MEDS: ASPIRIN 81 MG CHEWABLE TABLET PO SCH (08:14)
[2024-02-02] MEDS: lisinopriL 20 MG TAB PO SCH (08:14)
[2024-02-02] MEDS: LORATADINE 10 MG TAB PO SCH (08:14)
[2024-02-02] MEDS: AMLODIPINE 5 MG TAB PO SCH (08:36)
--- NOTE | 2024-02-02 08:48 | RAD REPORT ---
EXAM DESCRIPTION: DX - Hip in OR Left 1 View - 02/01/2024 10:27 am CLINICAL HISTORY: SURGERY AP COMPARISON: Hip Left 2 View dated 01/31/2024; Hip Left 2 View dated 02/01/2024 TECHNIQUE: Single AP view of the left hip acquired intraoperatively. FINDINGS: Left femoral stem component of the left hip arthroplasty, with mastoid air space in place. Other surgical instruments present in the field. Gas along the lateral upper hip incision. Alignment is satisfactory. IMPRESSION: Expected intraoperative findings following placement of left femoral stem component of a left hip arthroplasty.
[2024-02-02] MEDS: FERROUS FUMARATE 324 MG PO SCH (09:00)
[2024-02-02] MEDS ORDERED: PNEUMOCOCCAL VACCINE 0.5 ML IMVAC ONE (09:00)
[2024-02-02] MEDS ORDERED: INFLUENZA VACCINE (for 6+ mo) 0.5 ML DOSE IMVAC ONE (09:00)
[2024-02-02] MEDS ORDERED: MAGNESIUM HYDROXIDE 8% 30 ML PO PRN (10:06)
[2024-02-02] MEDS: Levofloxacin500mg IV 500 MG/100 ML BAG IV SCH (10:08)
--- NOTE | 2024-02-02 11:34 | PN ---
Date of Progress Note: 02/02/2024 Subjective: The patient was seen this morning for followup. No new complaints or problems reported by the patient except some pain in his left hip where he had surgery done for hip fracture yesterday. The patient's and daughter were present in room with him today. He was confused as reported b y patient's and I did explain it to the patient's family in detail that confusion is to be expec chay and it is also expected to improve over period of time. Physical Examination: Vital Signs: Reviewed. Temperature 101.5 this morning with pulse 111, respiratory rate 18, blood pr essure 155/74, oxygen saturation 95% on 2 L nasal cannula oxygen. HEENT: Unremarkable. Lungs: Clear to auscultation. Heart: Sounds normal. Abdomen: Soft. Bowel sounds normoactive. No guarding, rigidity, tenderness, distention. Extremities: No leg edema. Laboratory Data: White count 13.6, hemoglobin 8.8, platelets 172. Sodium 141, potassium 3.7, chlori de 108, bicarb 27, BUN 23, creatinine 1.35, glucose 104. Liver function tests unremarkable. Urine c ulture is growing some bacteria. Definite identification sensitivity result pending. Impression: 1.Left hip fracture, status post surgery. 2.Anemia due to acute blood loss. 3.Dementia. 4.Urinary tract infection. 5.Coronary artery disease. 6.Hyperlipidemia. 7.Encephalopathy, unspecified. Plan: We will go ahead and continue current pain medication. Continue current DVT prophylaxis using Lovenox. We will continue to monitor hemoglobin and blood count including platelet count. Continue current antibiotic, which is ceftriaxone. The patient is still having fever, so I will add Levaquin 500 mg IV daily. Follow up on the urine culture results and then we will decide about culture speci fic antibiotics. Physical Therapy to work with the patient and I have requested inpatient rehab cons ultation as well. I did talk to patient's and daughter, explained them that the confusion is to be expected and with time, it should continue to improve and our goal is to try to get the patient t o inpatient rehab if he qualifies and for some reason, if he does not then he will need to go to [facility]. I will see him tomorrow for followup. SANDRA/MODL Voice ID: [id number] Report ID: [id number]
[2024-02-02] MEDS: HYDROCODONE/APAP 7.5/325 MG TAB PO PRN (14:11)
--- NOTE | 2024-02-02 15:31 | EKG ---
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
[2024-02-02] MEDS: DOCUSATE NA/SENNA CONC 1 TAB PO SCH (20:05)
[2024-02-03 04:11] LABS: Absolute Basophils 0.1 K/uL (0-0.5); Absolute Eosinophils 0.3 K/uL (0-0.5); Absolute Lymphocytes (CBC) 1.3 K/uL (0.7-4.9); Absolute Monocytes 1.1 K/uL (0.1-1.3); Absolute Neutrophil 8.7 K/uL (1.8-8.0); Basophils % 0.5 % (0-1.3); Eosinophils % 2.4 % (0-4.4); Hematocrit 24.2 % (39.6-49.0); Hemoglobin 8.4 g/dL (13.6-17.9); Lymphocytes % 11.8 % (15.3-44.8); MCH 28.9 pg (27.0-35.0); MCHC 34.7 g/dL (32.0-36.0); MCV 83.4 fL (80-100); MPV 8.4 fL (7.6-11.3); Monocytes % 9.6 % (3.3-12.3); Neutrophils % 75.7 % (41.7-73.7); Platelets 147 thou/uL (152-406); RBC Red Blood Cell Count 2.91 M/uL (4.33-5.43); Red Cell Distribution Width 15.3 % (12.1-15.2)
[2024-02-03 04:16] LABS: Anion Gap 8.3 mEq/L (5.0-15.0); Potassium 3.3 mEq/L (3.5-5.1)
[2024-02-03] MEDS: NA CHLORIDE 0.9% 1,000 ML IV SCH (05:25)
[2024-02-03] MEDS: POTASSIUM CL SA 10 MEQ TAB PO ONE (07:59)
[2024-02-03] MEDS: AMLODIPINE 5 MG TAB PO SCH (07:59)
--- NOTE | 2024-02-03 23:23 | PN ---
Date of Progress Note: 02/03/2024 Subjective: The patient was seen this morning for followup. No new complaints or problems reported by him. Lying in bed, not in distress. Physical Examination: Vital Signs: Reviewed. Temperature 98.4, pulse 73, respiratory rate 18, blood pressure 169/81. HEENT: Unremarkable. Lungs: Clear to auscultation. Heart: Sounds normal. Abdomen: Soft. Bowel sounds normal. No guarding, rigidity, tenderness, distention. Extremities: No leg edema. Laboratory Data: White count 11.4, hemoglobin 8.4, platelets 147. Sodium 139, potassium 3.3, chlori de 107, bicarb 27, BUN 21, creatinine 1.14, glucose 135, magnesium 2. Impression: 1.Left hip fracture. 2.Acute blood loss anemia. 3.Acute kidney injury, improved. 4.Hypokalemia. 5.Hypertension. Plan: We will go ahead and continue current antihypertensive medication, but increase dose of amlodi pine from 5 mg once a day to 2 times a day. Continue current pain medication. Continue current DVT prophylaxis. Physical Therapy to start working with the patient and we will request consultation fro inpatient rehab. The patient will be appropriate candidate for inpatient rehab, but once accepted, we will be able to transfer him to inpatient rehab. Replace electrolyte per order and I will see him to [facility]enia for followup. SANDRA/MODL Voice ID: [id number] Report ID: [id number]
[2024-02-04 06:53] LABS: Absolute Basophils 0.1 K/uL (0-0.5); Absolute Eosinophils 0.3 K/uL (0-0.5); Absolute Lymphocytes (CBC) 1.4 K/uL (0.7-4.9); Absolute Monocytes 0.9 K/uL (0.1-1.3); Absolute Neutrophil 7.1 K/uL (1.8-8.0); Basophils % 0.7 % (0-1.3); Eosinophils % 3.6 % (0-4.4); Hematocrit 22.3 % (39.6-49.0); Hemoglobin 7.9 g/dL (13.6-17.9); MCH 29.1 pg (27.0-35.0); MCHC 35.4 g/dL (32.0-36.0); MCV 82.3 fL (80-100); MPV 8.2 fL (7.6-11.3); Monocytes % 8.8 % (3.3-12.3); Neutrophils % 72.9 % (41.7-73.7); Platelets 162 thou/uL (152-406); RBC Red Blood Cell Count 2.71 M/uL (4.33-5.43); Red Cell Distribution Width 15.4 % (12.1-15.2)
[2024-02-04 07:08] LABS: Anion Gap 7.3 mEq/L (5.0-15.0); Magnesium 1.8 mg/dL (1.6-2.4); Potassium 3.3 mEq/L (3.5-5.1)
[2024-02-04] MEDS: POTASSIUM CL SA 10 MEQ TAB PO ONE (09:33)
[2024-02-04 12:36] VITALS: BP 157/75; TEMP 98.7
[2024-02-04 13:04] VITALS: O2SAT 95
[2024-02-04] MEDS ORDERED: ENSURE SURGERY 237 ML CAN PO SCH (21:00)
--- NOTE | 2024-02-04 21:22 | DS ---
Date of Discharge: 02/04/2024 Disposition: Discharged to go to inpatient rehab. Physical Examination: HEENT: Unremarkable. Lungs: Clear to auscultation. Heart: Sounds normal. Abdomen: Soft. Bowel sounds normal. No guarding, rigidity, tenderness, distention. Extremities: No leg edema. Discharge Medications and Instructions: See copy of transfer order for more details. Hospital Course: A 68-year-old pleasant male patient came into emergency room after he had fall at home and complaining of hip pain. Further evaluation revealed presence of left hip fracture. He was admitted to the hospital. Dr. Evans from Orthopedic Surgery was consulted and the patient had surgery done day after admission to the hospital. Postoperatively, he remained stable. Initially after the surgery, the patient had some confusion and altered mental status which resolved rather quickly. He started to participate well with physical therapy. Gamboa catheter was removed and there is no evidence of urinary retention. His urinalysis was abnormal consistent with urinary tract infection, he was started on empiric antibiotics Ceftriaxone and later on Levaquin was added because he continued to have low-grade fever, which slowly has improved. His elevated white count has normalized. His hemoglobin has dropped down, but he does not require any blood transfusion at this point. The patient did have some volume depletion problem which has actually resolved with IV fluid hydration. Today, the patient was accepted to go to inpatient rehab and was discharged in stable condition. I will continue to follow up on the rehab floor. Final Diagnoses: 1. Left femoral neck fracture. 2. Anemia, chronic, unspecified. 3. Anemia due to acute blood loss. 4. Coronary artery disease. 5. Hypertension. 6. Urinary tract infection. 7. Hyperlipidemia. 8. Chronic obstructive pulmonary disease. 9. Chronic anti-platelet therapy. 10. Benign prostatic hypertrophy. 11. Cervical spinal stenosis. Laboratory Data: Upon admission, white count 11.5, hemoglobin 10.6, platelets 241, and day after admission, white count went up to 16.6. Upon admission, sodium 140, potassium 3.8, chloride 108, bicarb 25, BUN 29, creatinine 1.26, glucose 109. Last blood work today, white count 9.8, hemoglobin 7.9, platelets 162. Sodium 138, potassium 3.3, chloride 106, bicarb 28, BUN 16, creatinine 1.05, glucose 117. SANDRA/MODL Voice ID: [id number] Report ID: [id number] MTDGrayson
--- NOTE | 2024-02-05 09:36 | P.PN ---
Subjective Date of Service: 02/05/24 Chief Complaint: s/p left hip kale pain controlled; some confusion overnight per the patient's Physical Examination - Vital Signs Temperature: 98.7 F Blood Pressure: 157/75 Pulse: 92 Respirations: 16 Pulse Ox (%): 97 - Physical Exam General: Alert, In no apparent distress Musculoskeletal: Other (LLE: dressing c/d/i; +EHL/FHL/GSC/TA; brisk capillary refill in all digits) Assessment And Plan - Plan Mandeep is a 68 yo male s/p left hip hemiarthroplasty POD#1 -acute expected postoperative blood loss anemia; continue to monitor h/h -lovenox for DVT prophylaxis -continue with PT; WBAT LLE with posterior hip precautions
== END 2024-02-04 15:37 | DRG 522 ==
LOC: ER 17:08 → ERHOLD 18:56 → 4TH 19:25
PROVIDERS: ADMIT Internal Medicine; ATTEND Internal Medicine
PROC: 0T9B70Z Drainage of Bladder with Drainage Device, Via Natural or Artificial Opening (ICD-10-PCS; 2024-01-31)
PROC: 0SRS0JA Replacement of Left Hip Joint, Femoral Surface with Synthetic Substitute, Uncemented, Open Approach (ICD-10-PCS; principal; 2024-02-01 08:00)
DX: S72.002A Fracture of unspecified part of neck of left femur, initial encounter for closed fracture (principal); D62 Acute posthemorrhagic anemia; N39.0 Urinary tract infection, site not specified; G93.40 Encephalopathy, unspecified; N17.9 Acute kidney failure, unspecified; I10 Essential (primary) hypertension; N40.0 Benign prostatic hyperplasia without lower urinary tract symptoms; E78.5 Hyperlipidemia, unspecified; M48.02 Spinal stenosis, cervical region; E87.6 Hypokalemia; E86.9 Volume depletion, unspecified; J44.9 Chronic obstructive pulmonary disease, unspecified; I25.10 Atherosclerotic heart disease of native coronary artery without angina pectoris; F03.90 Unspecified dementia, unspecified severity, without behavioral disturbance, psychotic disturbance, mood disturbance, and anxiety; I25.2 Old myocardial infarction; Z95.5 Presence of coronary angioplasty implant and graft; Z79.82 Long term (current) use of aspirin; Z87.891 Personal history of nicotine dependence; Z79.899 Other long term (current) drug therapy; W19.XXXA Unspecified fall, initial encounter; Y92.019 Unspecified place in single-family (private) house as the place of occurrence of the external cause; Y93.9 Activity, unspecified; Y99.9 Unspecified external cause status
CPT/HCPCS: 36415; 71045; 80048; 80053; 81001; 82947; 83735; 85014; 85018; 85025; 87086; 87088; 88305; 88311; 93005; 96374; 96375; 97161; 97530; 99285; J0690; J0696; J1650; J2371; J2405; J2704; J3010; J7030; J7120; Q0162

== ENCOUNTER 2024-02-04 10:49 | Inpatient (IN) | payer OTHER ==
[2024-02-04 16:25] VITALS: BMI 23.5
[2024-02-04] MEDS ORDERED: DOCUSATE NA 100 MG CAP PO PRN (16:36)
[2024-02-04] MEDS ORDERED: MAGNESIUM HYDROXIDE 8% 30 ML PO PRN (16:37)
[2024-02-04] MEDS ORDERED: TRAMADOL HCL 50 MG TAB PO PRN (16:42)
[2024-02-04] MEDS ORDERED: ONDANSETRON 4 MG/2 ML VIAL IV PRN (16:43)
[2024-02-04] MEDS: METOPROLOL TAR 25 MG TAB PO SCH (17:22)
[2024-02-04] MEDS: NA CHLORIDE 0.9% 1,000 ML IV SCH (18:15)
[2024-02-04] MEDS: ENSURE SURGERY 237 ML CAN PO SCH (20:00)
[2024-02-04] MEDS: CARBIDOPA/LEVODOPA 25/100 TAB PO SCH (20:04)
[2024-02-04] MEDS: ATORVASTATIN 80 MG TAB PO SCH (20:04)
[2024-02-04] MEDS: FAMOTIDINE 20 MG TAB PO SCH (20:04)
[2024-02-04] MEDS: MEMANTINE HCL 10 MG TABLET PO SCH (20:05)
[2024-02-04] MEDS: DOCUSATE NA/SENNA CONC 1 TAB PO SCH (20:05)
[2024-02-04] MEDS: AMLODIPINE 5 MG TAB PO SCH (20:05)
[2024-02-04] MEDS: CEFTRIAXONE 1,000 MG in NA CHLORIDE 0.9% 50 ML IVPB SCH (23:20)
[2024-02-05 03:58] LABS: Absolute Eosinophils 0.3 K/uL (0-0.5); Absolute Lymphocytes (CBC) 0.8 K/uL (0.7-4.9); Absolute Monocytes 0.7 K/uL (0.1-1.3); Absolute Neutrophil 5.3 K/uL (1.8-8.0); Basophils % 0.7 % (0-1.3); Eosinophils % 4.5 % (0-4.4); Hematocrit 24.6 % (39.6-49.0); Hemoglobin 8.7 g/dL (13.6-17.9); Lymphocytes % 11.7 % (15.3-44.8); MCH 29.1 pg (27.0-35.0); MCHC 35.5 g/dL (32.0-36.0); MCV 82.1 fL (80-100); MPV 8.2 fL (7.6-11.3); Monocytes % 10.2 % (3.3-12.3); Neutrophils % 72.9 % (41.7-73.7); Nucleated Red Blood Cells % 0.1 % (0-0); Platelets 181 thou/uL (152-406); Red Cell Distribution Width 15.2 % (12.1-15.2)
[2024-02-05] MEDS: HYDROCODONE/APAP 7.5/325 MG TAB PO PRN (04:30)
[2024-02-05 04:41] LABS: Albumin 2.2 g/dL (3.4-5.0); Anion Gap 7.7 mEq/L (5.0-15.0); Potassium 3.7 mEq/L (3.5-5.1); Prealbumin 6.4 mg/dL (20-40)
[2024-02-05] MEDS: ENOXAPARIN 40 MG/0.4 ML SQ SCH (07:38)
[2024-02-05] MEDS: lisinopriL 20 MG TAB PO SCH (07:45)
[2024-02-05] MEDS: PANTOPRAZOLE 40MG TABLET PO SCH (07:45)
[2024-02-05] MEDS: FOLIC ACID 1 MG TABLET PO SCH (07:46)
[2024-02-05] MEDS: LORATADINE 10 MG TAB PO SCH (07:47)
[2024-02-05] MEDS: FERROUS SULFATE 325 MG TAB PO SCH (07:47)
[2024-02-05] MEDS: TAMSULOSIN 0.4 MG SR CAP PO SCH (07:47)
[2024-02-05] MEDS: ASPIRIN 81 MG CHEWABLE TABLET PO SCH (07:47)
[2024-02-05] MEDS: levoFLOXacin 500 MG TAB PO SCH (07:51)
[2024-02-05] MEDS ORDERED: FERROUS FUMARATE 324 MG PO SCH (08:00)
[2024-02-05] MEDS ORDERED: Levofloxacin500mg IV 500 MG/100 ML BAG IV SCH (10:00)
[2024-02-05] MEDS: BISACODYL 10 MG RECTAL SUPP PR PRN (15:02)
--- NOTE | 2024-02-05 19:51 | PN ---
Date of Progress Note: 02/05/2024 Subjective: The patient was seen this morning for followup. He was lying in bed sleeping on rehab floor. No new complaints or problems reported overnight by the patient as per my discussion with the nursing staff. The patient did wake up and after talking to me, he went back to sleep. Denies any complaints this morning. Objective: Vital Signs: Reviewed. HEENT: Unremarkable. Lungs: Clear to auscultation. Heart: Sounds normal. Abdomen: Soft. Bowel sounds normal. No guarding, rigidity, tenderness, distention. Extremities: No leg edema. Laboratory Data: White count 7.2, hemoglobin 8.7, platelets 181. Sodium 139, potassium 3.7, chloride 107, bicarb 28, BUN 16, creatinine 1.01. Impression: 1. Left hip fracture. 2. Anemia due to acute blood loss. 3. Hypertension. 4. Urinary tract infection. Plan: We will go ahead and continue current antibiotic, but we will change it to oral antibiotic which will be Levaquin 500 mg daily. Discontinue IV Levaquin and IV ceftriaxone. We will continue current antihypertensive medication and we will discontinue tramadol. I will see him tomorrow for followup. SANDRA/MODL Voice ID: [id number] Report ID: [id number] ARAMIS
[2024-02-05] MEDS: MELATONIN 3 MG TABLET PO PRN (20:30)
--- NOTE | 2024-02-05 21:57 | HP ---
Date of Admission: 02/04/2024 Time Of Service: 1:00 p.m. Chief Complaint: "I fell and broke my hip." History Of Present Illness: Mr. Aguirre is a 68-year-old patient who fell at home onto his left side impacting the left hip area. He developed severe pain and was unable to ambulate. Imaging at the [facility] identified a displaced femoral neck fracture with cranial apex angulation. Blood work found to be dehydrated with creatinine of 3.5, BUN 23, GFR slightly decreased at 56. He was see n by the orthopedic service, who evaluated the patient and determined he is appropriate candidate for surgery and he was seen by Dr. Evans, who performed the surgery on January 31. Dr. Evans performed a le ft hip arthroplasty without complications. Postoperatively, the patient was put on deep vein thrombo sis prophylaxis and antiplatelet therapy. He did receive hydration for his dehydration and his hyper tension was managed. He was treated briefly with antibiotics and had oxygen along with BiPAP. His p ostoperative course has been complicated by a decline in physical functioning and moderate pain with anemia, hypokalemia, and confusion with difficulty maintaining weightbearing precautions. As a resul t, he was functioning well below his baseline level of mobilization, transfers, and activities of denisha ly living. As a result, he is determined to be an appropriate candidate for inpatient rehabilitation where he will receive 24/ [facility], daily physician evaluation. Manager Mail management to help maximize independence and return safely home and minimize rehospitalization. He is therefore admitted to inpatient rehabilitation unit. Past Medical History: COPD, hypertension, dyslipidemia, coronary artery disease, benign prostatic hy pertrophy, cervical spondylosis with cervical stenosis, anemia, coronary artery disease with coronary stent placement on March 02, 2016. Allergies: NO KNOWN DRUG ALLERGIES. X-ray/imaging: Femur x-ray on 01/31/2024 showed displaced femoral neck fracture. Hip x-ray on 01/30, displaced femoral neck fracture with cranial apex angulation. Chest x-ray 01/31/2024 shows no acute cardiopulmonary processes and the hip x-ray on 02/01/2024 shows that the hip arthroplasty was performed. No unexpected hardware findings, then lateral skin eve were seen on the left. Laboratory Studies: White blood cell count 7.2, hemoglobin 8.7, platelets 181. Sodium 139, potassiu m 3.7, chloride 107, carbon dioxide 28, BUN 16, creatinine 1.01, glucose 119, calcium 8.2. Magnesium 2.0. Albumin 2.2. Prealbumin very low at 6.4. Urinalysis is pending. Medications: Tylenol 325 mg every 4 hours as needed, [place] 7.5/325 every 4 hours as needed, Norvasc 5 mg twice daily, aspirin 81 mg daily, Lipitor 80 mg at bedtime, carbidopa and levodopa 2 tablets twi ce daily, Colace 200 mg daily for constipation, Lovenox 40 mg subcutaneously daily, Ensure 237 mL twi ce daily, Pepcid 20 mg at bedtime, ferrous sulfate 325 mg daily, folic acid 1 mg daily, Levaquin 500 mg daily, Prinivil 20 mg daily, Claritin 10 mg daily, milk of magnesia 30 mL daily as needed for cons tipation. It is noted the patient's last bowel movement was 5 days ago. Memantine 10 mg twice daily , Lopressor 25 mg twice daily, Zofran 4 mg every 6 hours as needed, Senokot S 2 at bedtime, Flomax 0. 8 mg daily. Review of Systems: It is noted Mr. Aguirre had some issues of baseline cognitive impairment. He also admits to no bowel movements in about 5 days and mild left surgical site pain and mild swelling in the left lower extre mity. Otherwise systems review is unremarkable. Current Level Of Functioning: Eating is with setup assistance. Oral hygiene, setup assistance. En leting, maximum assistance. Bathing, maximum assistance. Upper body dressing, moderate assistance. Lower body dressing, maximal assistance. Toileting and donning and doffing footwear, rolling right- to-left, yoah-lq-nhxru, kwo-sf-oboyh all maximum assistance. Ambulation, not yet ambulated. Physical Examination: Vital Signs: Blood pressure 153/81, pulse up to 110, respiratory rate 16, temperature 98.7, oxygen s aturation 97%. General: Mr. Aguirre is resting in bed. The speech pathologist is beginning to work with him. HEENT: He does appear normocephalic, atraumatic. Does have poor dentition. Otherwise, sclerae anic teric. Oropharynx is moist. Neck: Supple. Chest: Clear. Heart: Regular. Extremities: Show no significant edema, cyanosis, or clubbing except his postoperative expected find ings in the left hip surgical site. Neuro: Cranial nerves no focal deficits. On motor, some giveaway weakness in left lower extremity w ith no focal deficits there as well. Assessment: Mr. Aguirre is admitted to the rehabilitation unit with impairment category 07, lower ex tremity fracture. His impairment group code is 08.11 status post unilateral hip fracture. Etiologic Diagnosis: Left femoral neck fracture. Additional Diagnoses: Renal insufficiency, anemia, benign prostatic hypertrophy, coronary artery disease, chronic obstructive pulmonary disease, decreased mobi lity, decreased physical functioning, baseline dementia, dyslipidemia, hypertension, hyperkalemia, daiana wel stenosis, postoperative pain. Plan: 1.Mr. Aguirre will have physical, occupational, and speech therapy for 3.5 hours, 5/7 days. 2.Flomax for prostate hypertrophy. 3.Senokot S, Dulcolax suppository, and Fleet Enema as needed for constipation. 4.Protonix for GE reflux. 5.Zofran for nausea. 6.Lopressor 25 mg twice daily for hypertension. 7.Melatonin for insomnia. 8.Continue Namenda 10 mg twice daily for dementia. 9.Complete Levaquin for his urinary tract infection. Prinivil also for his hypertension. For sever e anemia, he has protein supplementation and iron sulfate as well. For DVT prophylaxis, Lovenox 40 m g subcutaneously daily. For his Parkinson's symptoms, Sinemet 25/100 two tablets twice daily, Lipito r for dyslipidemia, aspirin for stroke risk reduction, [place] and Tylenol as needed for pain. Comorbidities That Are Impacting His Rehabilitation: The patient does have at this point severe cons tipation for about 3 days and we will work to help him relieve that. As expressed above also, he has the cognitive impairment and he is working with speech pathology to help improve his thinking proces sing, understanding, and safety awareness and how to follow his precautions, which are weightbearing as tolerated with hip precautions. Rehab Specific Plan: 1.Mr. Aguirre will have physical, occupational, and speech therapy for 3.5 hours, 5/7 days to improv e his ability to transfer from bed to chair, to toilet, to shower. Also, to perform toileting and sh owering. 2.To perform his upper and lower body dressing and donning and doffing footwear. 3.To make safe decisions. 4.Perform activities of daily living without difficulty. 5.Ambulate at least 250 feet with a rolling walker. 6.Propel a wheelchair 250 feet with modified independence. 7.Also go up and down 10 steps with modified independence. 8.Manage all his medications and able to return home with family. 9.If need be, additional help from the services such as orthopedic service, hospitalist service, [facility] patient is being followed by Dr. Álvarez, his primary care physician, will be consulted. Given his c omplex medical condition and risk of further complications, rehabilitation cannot be safely or effect ively performed at the lower level facility such as [facility]. Barriers To Discharge: He does have some cognitive impairment, which is likely worsened by his curre nt situation of pain, postoperative state, electrolyte abnormalities, and urinary tract infection. Concepcion hasa is in working with Speech and that should be improving and at discharge will likely need to continu e speech along with physical and occupational therapy. Length Of Stay: About 12-13 days. Disposition: Home with Home Health and 24-hour care for at least first week to 2 weeks after dischar ge. Prognosis: Good. Rehab Specific Goals: 1.Become independent with upper and lower body dressing, toileting, showering, donning and doffing o f footwear. 2.Independently ambulate 250 feet with rolling walker. 3.Independently propel a wheelchair 250 feet. 4.Independently go up and down 10 steps with bilateral handrails. 5.Perform cognitive functioning with minimal supervision. 6.The above goals were reviewed with Mr. Aguirre and family and he is in agreement. By signing this document, I acknowledge that I personally performed a full physical examination on Mr Gale Aguirre no later than 24 hours after his admission to the inpatient rehabilitation facility and det ermined that he is able to tolerate the above course of treatment at an intensive level for reasonabl e period of time. A detailed individualized plan of care for him will be completed by hospital day 4 based on the preadmission screen, history and physical, and therapy evaluations. CHARLENE/LIZBETH Voice ID: [id number]
[2024-02-06] MEDS ORDERED: BACLOFEN 10 MG TAB PO PRN (15:25)
[2024-02-06] MEDS: CYANOCOBALAMIN 1000MCG/ML INJ IM ONE (16:38)
--- NOTE | 2024-02-06 20:19 | PN ---
Date of Progress Note: 02/06/2024 Subjective: The patient was seen this morning for followup. No new complaints or problems reported by the patient. Lying in bed, not in distress. He was awake, alert, answering questions appropriate ly. Denies any new complaints. Objective: Vital Signs: Reviewed. HEENT: Unremarkable. Lungs: Clear to auscultation. Heart: Sounds normal. Abdomen: Soft. Bowel sounds normal. No guarding, rigidity, tenderness, distention. Extremities: No leg edema. Impression: 1.Left hip fracture. 2.Hypertension. 3.Hyperlipidemia. 4.Anemia, due to acute blood loss. 5.Urinary tract infection. Plan: We will go ahead and continue current antibiotic which is Levaquin. Continue current pain med ication. Continue physical therapy under guidance of Dr. Cardoza. We will continue his current ant ihypertensive medication and I will see him tomorrow for followup. SANDRA/MODL Voice ID: [id number] Report ID: [id number]
[2024-02-06] MEDS: GABAPENTIN 100 MG CAP PO SCH (20:57)
[2024-02-06] MEDS: MAGNESIUM OXIDE 400 MG TAB PO SCH (20:58)
--- NOTE | 2024-02-06 21:25 | PN ---
Date of Progress Note: 02/06/2024 [id number]-hf-[id number] progress note visit. Time Of Service: 1:30 p.m. Subjective: Mr. Aguirre is in the bed. Therapist was just working with him and putting the wedge se parator between his legs to maintain his hip precautions. He was reporting significant pain in the l eft femoral neck fracture site and again pain medications were adjusted to accommodate for that. He was also appearing to be somewhat sleepy at this point, and it is not clear that he has had a good re storative sleep at night. Objective: He has no fevers or chills. No nausea, vomiting. Does have the myalgias, arthralgias of the left lower extremity and surgical site. He has no rash. No active psychiatric issues or gastro intestinal issues. Physical Examination: Vital Signs: Blood pressure 121/62, pulse of 104 from 96, temperature is 98.5, oxygen saturation 92% , respiratory rate 16. General: Again, he is apparently somewhat in pain as he was mobilized, but once resting comfortably, pain is eliminated. HEENT: He has poor dentition; otherwise, normocephalic and atraumatic. Sclerae anicteric. Orophary nx moist. Neck: Supple. Chest: Clear. Extremities: No significant edema in the lower extremities. Laboratory Studies: His prealbumin is very low at 6.4, and albumin 2.2. Medications: Tylenol 325 mg every 4 hours as needed, [place] 7.5/325 every 4 hours as needed, Norvasc 5 mg twice daily, aspirin 81 mg daily, Lipitor 80 mg at bedtime, Dulcolax 10 per rectum as needed for constipation, Sinemet 25/100 two tablets twice daily, Colace 200 mg daily as needed for constipation , Lovenox 40 mg subcutaneously daily, Ensure 237 mL twice daily, Pepcid 20 mg at bedtime, ferrous sul fate 325 mg daily, folic acid 1 mg daily, gabapentin 100 mg twice daily, levofloxacin 500 mg daily, P rinivil mg daily, Claritin 10 mg daily, milk of magnesia 30 mL daily as needed for constip ation, magnesium oxide 400 mg twice daily, melatonin 3 mg at bedtime, Namenda 10 mg twice daily, Lopr essor 25 mg twice daily, Zofran 4 mg every 6 hours as needed, Protonix 40 mg daily, Senokot-S 2 at be dtime, and Flomax 0.8 mg daily. Progress Made With Physical, Occupational And Speech Therapy: Today with physical therapy, he did am bulate 17 feet with maximum assistance twice and also did wheelchair mobilization on multiple occasio ns. Bed mobility with moderate assistance. Multiple gqa-yg-mbmtw transfers and stand to pivot trans fers with moderate to minimum assistance. With occupational therapy, bathing moderate assistance; lo wer body dressing, dependent; upper body dressing, minimum assistance; maximal assistance with supine to sit and edge of bed transfer. Did have improved unsupported sitting balance with contact guard a ssistance, maximal assistance from sit to stand and pivot and on and off wheelchair with a rolling sh ower chair and maximum assistance. Did have some improvement in ability and willing to follow direct ions with the hand and foot placement. With speech therapy, recalled 3 of 3 unrelated pictures after 3 minutes without cues; after 7 minutes, he recalled 2 of 3. Organizational thinking exhibits by eduar hou one concrete item to category with 75% accuracy and maximum verbal cues. Mr. Aguirre is somewhat limited by significant pain in the left femoral neck region. His medications have included multiple modalities for pain with adjustments in the muscle relaxant, baclofen, which is added twice daily as needed for spasms. All medications are continued. He has received a B12 lindsay t 100 today because of the poor energy during the day and will also help him begin to get a restful n ight with melatonin as scheduled 3 mg at bedtime. Assessment: Mr. Aguirre is a 68-year-old patient in rehabilitation unit with left femoral neck fract ure. He has renal insufficiency, significant anemia and malnutrition, prostate hypertrophy, coronary artery disease, chronic obstructive pulmonary disease, decreased mobility, decreased physical functi oning, dyslipidemia, hypertension, hyperkalemia and postoperative pain. Plan: 1.Continue with physical, occupational, and speech therapy for 3.5 hours, 5 of 7 days. 2.He is on multiple pain medications, which, again, have been adjusted to appropriately assist him t o optimize his therapy and minimize pain. Continue with medications for nausea, for GE reflux, DVT p rophylaxis, and B12 injection given for energy during the day. Also continue with the Namenda 10 mg twice daily for dementia, finish Levaquin for his urinary tract infection, Sinemet for Parkinson's. Comorbidities That Are Continuing To Impact Rehabilitation: At this point, significant pain is a fac tor and again pain medications adjusted. At last interaction, previously, which is yesterday, he had significant constipation, no bowel movement for four days and this morning, he had a very good bowel movement and is doing well from that perspective, no longer impacting rehabilitation. Also, his [facility] physician Dr. Álvarez is following him for medical management. CHARLENE/LIZBETH Voice ID: [id number] Report ID: [id number]
[2024-02-07] MEDS: AMLODIPINE 5 MG TAB PO SCH (10:00)
--- NOTE | 2024-02-07 13:22 | PN ---
Date of Progress Note: 02/07/2024 Subjective: Patient was seen this morning for followup. No new complaints or problems reported by patient. He was sitting in chair. This morning, he did get his antihypertensive medication, but subsequently just before my arrival, his systolic blood pressure was in range of 90 to 100 range. The patient was asymptomatic. He was sitting in wheelchair, denied any complaints. Awake, alert, answering questions appropriately. No vomiting. No diarrhea. Objective: Vital Signs: Reviewed. HEENT: Unremarkable. Lungs: Clear to auscultation. Heart: Sounds normal. Abdomen: Soft. Bowel sounds normal. No guarding, rigidity, tenderness, or distention. Extremities: No leg edema. Impression: 1. Left hip fracture. 2. Acute blood loss anemia, stable. 3. Hypertension. Plan: We will go ahead and continue current DVT prophylaxis. Continue metoprolol 25 mg 2 times a day per order and we will hold amlodipine and change lisinopril 20 mg daily to 10 mg 2 times a day and to hold amlodipine and lisinopril both if systolic blood pressure less than 130. Stat EKG was done and it was reviewed. Continue physical therapy under guidance of Dr. Cardoza. I will see him tomorrow for followup. SANDRA/MODL Voice ID: [id number] Report ID: [id number] MTDD
--- NOTE | 2024-02-07 13:26 | P.RH.PN ---
Estimated Length of Stay: 16 Expected Discharge Date: 02/15/24 Discharge Disposition Plan: Home Family Support: Yes Senior Living Goal: Mobility, Transfers, Self Care Vital Signs: Last Vital Signs Temp 98.2 F 02/07/24 08:00 Pulse 93 H 02/07/24 08:01 Resp 12 02/07/24 08:00 BP 134/75 02/07/24 08:01 Pulse Ox 93 02/07/24 08:00 Laboratory: Laboratory Last Values WBC 7.20 thou/uL (4.3-10.9) 02/05/24 03:43 RBC 3.00 M/uL (4.33-5.43) L 02/05/24 03:43 Hgb 8.7 g/dL (13.6-17.9) L D 02/05/24 03:43 Hct 24.6 % (39.6-49.0) L 02/05/24 03:43 MCV 82.1 fL (80-100) 02/05/24 03:43 MCH 29.1 pg (27.0-35.0) 02/05/24 03:43 MCHC 35.5 g/dL (32.0-36.0) 02/05/24 03:43 RDW 15.2 % (12.1-15.2) 02/05/24 03:43 Plt Count 181 thou/uL (152-406) 02/05/24 03:43 MPV 8.2 fL (7.6-11.3) 02/05/24 03:43 Neutrophils % 72.9 % (41.7-73.7) 02/05/24 03:43 Lymphocytes % 11.7 % (15.3-44.8) L 02/05/24 03:43 Monocytes % 10.2 % (3.3-12.3) 02/05/24 03:43 Eosinophils % 4.5 % (0-4.4) H 02/05/24 03:43 Basophils % 0.7 % (0-1.3) 02/05/24 03:43 Absolute Neutrophils 5.3 K/uL (1.8-8.0) 02/05/24 03:43 Absolute Lymphocytes 0.8 K/uL (0.7-4.9) 02/05/24 03:43 Absolute Monocytes 0.7 K/uL (0.1-1.3) 02/05/24 03:43 Absolute Eosinophils 0.3 K/uL (0-0.5) 02/05/24 03:43 Absolute Basophils 0.0 K/uL (0-0.5) 02/05/24 03:43 Sodium 139 mEq/L (136-145) 02/05/24 03:43 Potassium 3.7 mEq/L (3.5-5.1) 02/05/24 03:43 Chloride 107 mEq/L (98-107) 02/05/24 03:43 Carbon Dioxide 28 mEq/L (21-32) 02/05/24 03:43 Anion Gap 7.7 mEq/L (5.0-15.0) 02/05/24 03:43 BUN 16 mg/dL (7-18) 02/05/24 03:43 Creatinine 1.01 mg/dL (0.70-1.30) 02/05/24 03:43 Est GFR (CKD-EPI) 80 ml/min (=/>90) L 02/05/24 03:43 Glucose 119 mg/dL (74-106) H 02/05/24 03:43 POC Glucose 123 mg/dL (65-120) H 02/05/24 20:35 Calcium 8.2 mg/dL (8.5-10.1) L D 02/05/24 03:43 Magnesium 2.0 mg/dL (1.6-2.4) 02/05/24 03:43 Albumin 2.2 g/dL (3.4-5.0) L 02/05/24 03:43 Prealbumin 6.4 mg/dL (20-40) L 02/05/24 03:43 Weight: 159 lb 4.8 oz Wound Present: No Closed Surgical Incision Present: Yes Negative Pressure Wound Therapy Present: No Physician Update: Moderate cognitive impairment is a barrier but he is doing fairly. He is still sleepy during the day. BIMS 12, SLUMS 10, poor short term memory. Met 3/4 short term goals. RW 17' with max assit. Requires continous stimulation to do tasks. Summary: Patient's care plan and [facility] goals have been reviewed and revised as necessary. Please see the Rehabilitation Signature page for all necessary signatures.
[2024-02-07] MEDS: DULOXETINE 30 MG CAP PO SCH (15:12)
[2024-02-07] MEDS: lisinopriL 10 MG TAB PO SCH (21:13)
--- NOTE | 2024-02-08 11:13 | PN ---
Date of Progress Note: 02/08/2024 Subjective: The patient was seen this morning for followup. No new complaints or problems reported by the patient. He was lying in bed, not in distress. Denies any complaints. Denies any hip pain, nausea, vomiting. No constipation problem and daughter who was with him reported that his last bowel movement was yesterday. Objective: Vital Signs: Reviewed. HEENT: Unremarkable. Lungs: Clear to auscultation. Heart: Sounds normal. Abdomen: Soft, bowel sounds normal. No guarding, rigidity, tenderness, or distention. Extremities: No leg edema. Impression: 1.Hip fracture. 2.Hypertension. 3.Anemia due to acute blood loss. 4.Hyperlipidemia. Plan: We will go ahead and continue current medication, continue current antihypertensive medication s as well as current pain medication. Physical therapy to be provided under guidance of Dr. Cardoza and I will see him tomorrow for followup. Blood pressure was stable this morning. SANDRA/MODL Voice ID: [id number] Report ID: [id number]
--- NOTE | 2024-02-09 12:45 | PN ---
Date of Progress Note: 02/09/2024 Subjective: The patient was seen this morning for followup. No new complaints or problems reported by patient. He was lying in bed. His was with him at bedside. Objective: Vital Signs: Reviewed. HEENT: Unremarkable. Lungs: Clear to auscultation. Heart: Sounds normal. Abdomen: Soft. Bowel sounds normal. No guarding, rigidity tenderness distention. Extremities: No leg edema. Impression: 1.Hip fracture. 2.Hypertension. 3.Hyperlipidemia. 4.Anemia due to acute blood loss. 5.Parkinson disease. Plan: We will go ahead and continue current medication. Continue current antihypertensive medicatio n per order. We will continue iron supplement and physical therapy under guidance of Dr. Cardoza. The was present with him at bedside. The patient has lot of dry skin on his legs, which is paper sorter shanell thing for him and I have asked nursing staff to apply skin lotion to the leg. We did talk about discharge planning. Possible discharge date is scheduled for February 15, 2024, and the informed dheeraj haas that she is not sure if she will be able to take care of him at home because she works and during d ay time, patient will have to stay by himself at home, so we did talk about discharge planning and I have asked her to communicate these details with Dr. Cardoza and oncology social worker tomorrow so that way if there is a possibility, then he can be discharged to go to [facility] instead of home as is t hinking about the possibility. SANDRA/MODL Voice ID: [id number] Report ID: [id number]
[2024-02-09] MEDS: ENSURE ENLIVE 237 ML CAN PO SCH (20:29)
--- NOTE | 2024-02-10 08:18 | P.CNS ---
Date of Consult: 02/10/24 Reason for Consult: painful toenails Allergies No Known Allergies Allergy (Verified 01/31/24 23:19) Home Medications: Atorvastatin Calcium [Lipitor*] 80 mg PO BEDTIME #90 tab 03/04/16 Aspirin Chewable [Aspirin Chewable*] 81 mg PO DAILY 02/28/23 Lisinopril [Zestril] 20 mg PO DAILY 02/28/23 Metoprolol Succinate [Toprol Xl*] 50 mg PO DAILY 02/28/23 Amlodipine Besylate 5 mg PO DAILY 01/31/24 Carbidopa/Levodopa 25-100 [Sinemet 25-100] 2 tab PO BID 01/31/24 Famotidine 20 mg PO BEDTIME 01/31/24 Ferrocite 324 mg PO DAILY 01/31/24 Folic Acid 1 mg PO DAILY 01/31/24 Loratadine [Claritin] 10 mg PO DAILY 01/31/24 Memantine HCl 10 mg PO BID 01/31/24 Omeprazole [Prilosec] 40 mg PO DAILY 01/31/24 Tamsulosin [Flomax] 2 tab PO DAILY 01/31/24 Hydrocodone 7.5/APAP 325 [Cohagen 7.5/325 mg*] 1 tab PO Q4H PRN 02/04/24 traMADol HCL [Ultram*] 50 mg PO Q6H PRN 02/04/24 - Past Medical/Surgical History Diabetic: No -: HTN -: Hyperlipidemia -: CAD with prior stent -: Former smoker -: Parkkinsons -: Heart catheterization with stent Psychosocial/ Personal History: Patient - Family History Father Medical History: Cancer Mother Medical History: Cancer Brother Medical History: Hypertension Notes: Brothers Maxx and Albert, and sister, Zulma all have htn - Social History Smoking Status: Current every day smoker Alcohol use: No CD- Drugs: Yes Caffeine use: No Place of Residence: Home Review of Systems 10-point ROS is otherwise unremarkable Physical Examination Temp Pulse Resp BP Pulse Ox 97.7 F 87 16 141/69 H 95 02/10/24 06:37 02/10/24 07:27 02/10/24 08:09 02/10/24 07:27 02/10/24 08:09 General: Alert, In no apparent distress Cardiovascular: No edema, Abnormal pulses (0/4 dp and pt pulses bilateral feet) Capillary refill: <2 Seconds Musculoskeletal: No clubbing, No swelling, No contractures, No erythema, No tenderness, No warmth Integumentary: No rashes, No breakdown, No significant lesion, No tenderness/swelling, No erythema, No warmth, No cyanosis, Other (absent hair growth bilateral. Thickened hypertrophic toenails with subungual debris bilateral) Neurological: Sensation intact - Problems (1) Tinea unguium Current Visit: Yes Status: Acute (2) care home (current) use of anticoagulants Current Visit: Yes Status: Acute Conclusions/Impression: Mechanical debridement of nails at bedside Physician Review: Patient Assessed, Agree with Above Assessment and Plan
--- NOTE | 2024-02-10 14:27 | EKG ---
Test Date: 2024-02-07 Test Time: 10:21:48 Senior Java Programmer Analyst: ANGELITA MEASUREMENT RESULTS: Intervals: Rate: 111 SD: 164 QRSD: 90 QT: 358 QTc: 486 [place]: P: 58 SD: 164 QRS: -46 T: 59 INTERPRETIVE STATEMENTS: Sinus tachycardia with premature atrial complexes Left anterior fascicular block Septal infarct, age undetermined Lateral infarct, age undetermined Abnormal ECG Compared to ECG 01/31/2024 17:48:49 Atrial premature complex(es) now present Sinus rhythm no longer present Myocardial infarct finding still present Electronically Signed On 02-10-24 14:17:00 CDT by Lele Frias
--- NOTE | 2024-02-10 14:56 | RAD REPORT ---
EXAM DESCRIPTION: CT - Head Brain Wo Cont - 02/10/2024 2:32 pm CLINICAL HISTORY: Alteration of awareness/confusion COMPARISON: 2022 TECHNIQUE: Computed axial tomography of the head was obtained. IV contrast was not requested. All CT scans are performed using dose optimization technique as appropriate and may include automated exposure control or mA/KV adjustment according to patient size. FINDINGS: An intracranial bleed is not seen The ventricles are normal in caliber No extra-axial fluid collection is noted. Prominent cerebral atrophy Moderate low-density areas within periventricular, deep and subcortical white matter likely represent ischemic changes secondary to small vessel disease. Fluid within the sinuses/ mastoids is not seen. IMPRESSION: No acute intracranial abnormality is seen If patient's symptoms persist MRI of the brain would be recommended
[2024-02-10] MEDS: MAGNESIUM OXIDE 400 MG TAB PO SCH (20:59)
--- NOTE | 2024-02-10 21:33 | PN ---
Date of Progress Note: 02/10/2024 Subjective: The patient was seen this morning for followup. No new complaints or problems reported by the patient. Lying in bed, not in distress. Denies any new complaints this morning. Objective: Vital Signs: Reviewed. HEENT: Unremarkable. Lungs: Clear to auscultation. Heart: Sounds normal. Abdomen: Soft. Bowel sounds normal. No guarding, rigidity, tenderness, distention. Extremities: No leg edema. Impression: 1.Hip fracture. 2.Hypertension. 3.Hyperlipidemia. 4.Parkinson disease. 5.Anemia due to acute blood loss. 6.Urinary tract infection. Plan: We will continue current antibiotic. Continue current antihypertensive medication and DVT pro phylaxis. No need for further intervention on anemia except monitoring and physical therapy to be co ntinued under guidance of Dr. Cardoza. SANDRA/MODL Voice ID: [id number] Report ID: [id number]
--- NOTE | 2024-02-10 22:59 | PN ---
Date of Progress Note: 02/10/2024 Time: 1:35 p.m. Subjective: Mr. Aguirre is sitting in a chair beside the bed. He is actually alert, interactive, sp vijaya with family members. Did not have any issues following all commands and denied any significant p ain. At the time of my evaluation, it was reported that the patient did have some jerking episodes, none was observed at the time while I evaluated the patient. Review of Systems: He denied any significant fevers or chills. No myalgias, arthralgias. His family members observed h im and he did not have any other complaints at that point early in the day. It is noted that later o n in the afternoon, patient's family member said while in bed, he did have some apparent brief episod es of jerking return, but those were purposeful activity and that were nonrhythmic and they were nons eizure like. Physical Examination: Vital Signs: Blood pressure 140/69, pulse of 80, respiratory rate 16, temperature 98.4, oxygen satur ation 96%. General: Mr. Aguirre is resting comfortably. He is in no acute distress. HEENT: He appears normocephalic, atraumatic. Sclerae anicteric. Oropharynx moist. Neck: Supple. Chest: Clear. Extremities: He has no significant clubbing, cyanosis, or edema. He does have good hemostasis on th e left femoral neck site fracture repair. Laboratory Studies: No new laboratory studies. X-ray/imaging: There was a head CT scan done as patient's family were worried about him fluctuating and having the possibility of some worsening deficits. The study showed moderate to low-density area s in periventricular deep white matter, likely representing chronic small vessel ischemic disease. T here was no finding of any acute intracranial abnormality. The patient was also seen by Dr. Dl Frausto on the podiatry service, diagnosed with tinea unguium a nd has mechanical debridement of the nails at the bedside. Progress Made With Physical, Occupational, And Speech Therapy: Today with physical therapy, he ambul ated 50 feet, but needed maximum assistance and did that twice. He mobilized wheelchair 120 feet wit h minimum assistance. Also, later in the day while he was somewhat sleepy, he only ambulated about 6 -8 feet, did that 6 times with minimal assistance. Kql-ly-pgsfg transfers from a wheelchair, using a rolling walker was done with moderate assistance. Parallel bars did with moderate assistance as cady moore. With occupational therapy, minimum assistance for sit to stand, moderate assistance for stand piv ot transfer on off toilet. Today with his speech therapy, he did become agitated and attempted to pe rform structured tasks. He was disoriented, could not state where he was and type of information and again he did have the imaging done after that, that is brain imaging. Mr. Aguirre has a fluctuating course at times. He would participate well and then at other times les s participatory. He does not have any jalil seizure-like looking activity from what is described and CT scan of the head shows no acute ischemic hemorrhagic change. Study is remarkable for moderate sm all vessel ischemic disease. Assessment: Mr. Aguirre is a 68-year-old patient in the rehabilitation unit with left femoral neck f racture, status post surgical repair. He does have a fluctuating level of participation and family r eports some brief jerking episodes that are nonseizure-like. He has malnutrition, anemia, prostate h ypertrophy, coronary artery disease, chronic obstructive pulmonary disease, decreased physical functi on, decreased mobility, dyslipidemia, hypertension, postoperative pain. Plan: 1.He will continue with physical, occupational, and speech therapy for 3.5 hours, 5/7 days. 2.He will continue with medications for comorbid conditions. Did have a decrease in his gabapentin to determine if that is a contributing factor to some fluctuating levels of interaction. In addition , he had Cymbalta started that may be considered for decreasing, but his brain CT scan was showing no acute changes. In addition, have a Sinemet for Parkinson's, Namenda for dementia. Comorbidities That Continue To Impact Rehabilitation: The patient began to have some fluctuating lev els of cooperation, which again at times he would cooperate and do well and at other times, seem to n ot participate enthusiastically. In addition, there is a brief jerking noted by the family. It is n ot seizure-like, but appears to be purposeful. LB/MODL Voice ID: [id number] Report ID: [id number]
[2024-02-11] MEDS: MAGNESIUM OXIDE 400 MG TAB PO SCH (09:05)
[2024-02-11] MEDS: LIDOCAINE 4% PATCH TOP SCH (14:05)
[2024-02-11] MEDS: MEGESTROL 40 MG TAB PO SCH (20:20)
--- NOTE | 2024-02-11 23:20 | PN ---
Date of Progress Note: 02/11/2024 Subjective: The patient was seen this morning for followup. No new complaints or problems reported by the patient, lying in bed, not in distress. Objective: Vital Signs: Reviewed. HEENT: Unremarkable. Lungs: Clear to auscultation. Heart: Sounds normal. Abdomen: Soft. Bowel sounds normal. No guarding, rigidity, tenderness, distention. Extremities: No leg edema. Impression: 1.Hip fracture. 2.Anemia. 3.Hypertension. 4.Hyperlipidemia. Plan: We will go ahead and continue current medications. The patient is getting antibiotic for urin inocencia tract infection and we will probably end up stopping it in next day or 2 days. Continue physical therapy under guidance of Dr. Cardoza and continue current antihypertensive medication. I will see him tomorrow for followup. SANDRA/MODL Voice ID: [id number] Report ID: [id number]
--- NOTE | 2024-02-12 00:35 | PN ---
Date of Progress Note: 02/11/2024 Time Of Service: 1:35 p.m. Subjective: Mr. Aguirre is sitting in a chair beside bed. Family at the bedside. He is interactive , appropriate, and alert, showing no evidence of any jerking episodes which apparently may occur at n ighttime. He did agree to participate with all therapy, although this morning, apparently did not do well with speech therapy, appeared to be somewhat sleepy, but did much better with physical therapy and occupational therapy. Objective: No fevers or chills. No nausea or vomiting. His left femoral neck fracture pain is not a disturbance at this point. Physical Examination: Vital Signs: Blood pressure 142/82, pulse of 82, respiratory rate 16, temperature 97.8, oxygen satur ation 95%. General: Mr. Aguirre is sitting in a chair beside the bed. HEENT: He is normocephalic, atraumatic. Sclerae anicteric. Oropharynx moist. Neck: Supple. Chest: Clear. Heart: Regular. Extremities: No significant edema. Postoperative changes expected in left lower extremity from his left femoral neck fracture with good hemostasis. Laboratory Studies: No new laboratory studies. X-ray/imaging: No new x-rays or imaging. Medications: Medications have been reviewed and no additional changes were made, although he does root ve lidocaine patch added. He has magnesium oxide with muscle spasms and medications are continued un changed. Progress Made With Physical, Occupational, And Speech Therapy: Today with physical therapy, he did a mbulate 8 feet 6 times with minimal assistance, maintaining upright posture requiring some cues, sit- to-stand transfers from a wheelchair done with moderate assistance, [id number] transfers and para llel bars with minimum assistance. Earlier, he propelled a wheelchair 100 feet with modified indepen dence. Bed mobility done with moderate assistance. The patient's family has noted and told the ther apist that they are planning to have him go to a [facility]. It is very difficult to manage him at home. With speech, he was mostly nonverbal throughout the session, required maximum verbal tacti le cues to respond, did recall 3 of 3 unrelated pictures and named 5 items per 1 concrete category, b ut required maximum cues. Mr. Aguirre shows some fluctuating attentiveness. In terms of speech, he would do well at 1 point an d then appear not to do well. Today, he did well with physical therapy and very poorly in terms of a ttention at physical therapy, but at the time I evaluated him, he is alert. He promised to work well with them and there was no clear reason why he did not and he just shows not to participate well wit h speech therapy. Assessment: Mr. Aguirre is a 68-year-old patient with left femoral neck fracture, status post surgic al repair. He has cognitive impairment and fluctuating attentiveness, but appears to be able to do m uch better at times. He has malnutrition anemia, prostate hypertrophy, coronary artery disease, lead medical technologist shanell obstructive pulmonary disease, postoperative pain, dyslipidemia, hypertension. Plan: 1.Continue with physical, occupational, and speech therapy for 3.5 hours, 5 of 7 days. 2.He has multiple comorbid conditions, which are managed by primary care physician, Dr. Álvarez. Comorbidities That Are Impacting His Rehabilitation: Again, he has fluctuating levels of attentivene ss and cooperation, which appears to be more voluntary as he can do very well at times and other time s does not seem to participate well. He is again encouraged to participate fully at all times. CHARLENE/LIZBETH Voice ID: [id number] Report ID: [id number]
[2024-02-12] MEDS ORDERED: LIDOCAINE 4% PATCH TOP SCH (08:00)
--- NOTE | 2024-02-12 19:24 | PN ---
Date of Progress Note: 02/12/2024 Subjective: The patient was seen this morning for followup. He was lying in bed. Denies any compla ints. No back pain, chest pain, shortness of breath. No nausea, vomiting. No constipation. Objective: Vital Signs: Reviewed. HEENT: Unremarkable. Lungs: Clear to auscultation. No rales. No wheezing. Not in any respiratory distress. Heart: Sounds normal. Abdomen: Soft. Bowel sounds normoactive. No guarding, rigidity, tenderness, distention. Extremities: No leg edema. Impression: 1.Left hip fracture. 2.Hypertension. 3.Hyperlipidemia. 4.Anemia due to acute blood loss. Plan: We will go ahead and continue current medications. Continue current anticoagulation therapy. Continue physical therapy under guidance of Dr. Cardoza. We will continue current antihypertensive medications and I will see him tomorrow for followup. SANDRA/MODL Voice ID: [id number] Report ID: [id number]
[2024-02-13 04:22] LABS: Absolute Basophils 0.1 K/uL (0-0.5); Absolute Eosinophils 0.2 K/uL (0-0.5); Absolute Lymphocytes (CBC) 2.5 K/uL (0.7-4.9); Absolute Monocytes 0.7 K/uL (0.1-1.3); Absolute Neutrophil 5.8 K/uL (1.8-8.0); Basophils % 0.7 % (0-1.3); Eosinophils % 2.1 % (0-4.4); Hematocrit 23.7 % (39.6-49.0); Hemoglobin 8.3 g/dL (13.6-17.9); Lymphocytes % 26.9 % (15.3-44.8); MCH 28.7 pg (27.0-35.0); MCHC 35.1 g/dL (32.0-36.0); MCV 81.7 fL (80-100); MPV 7.8 fL (7.6-11.3); Monocytes % 7.5 % (3.3-12.3); Neutrophils % 62.8 % (41.7-73.7); Platelets 417 thou/uL (152-406); Red Cell Distribution Width 15.4 % (12.1-15.2)
[2024-02-13 04:36] LABS: Albumin 2.4 g/dL (3.4-5.0); Anion Gap 6.6 mEq/L (5.0-15.0); Magnesium 2.5 mg/dL (1.6-2.4); Potassium 3.6 mEq/L (3.5-5.1); Prealbumin 15.8 mg/dL (20-40)
[2024-02-13 05:23] LABS: Differential Total Cells Count 100; Eosinophils 4 % (0-3); Lymphocytes 26 % (15-42); Monocytes 2 % (0-10); Reactive Lymphocytes 7 %; Segmented Neutrophils 61 % (40-80)
[2024-02-13 05:24] LABS: Blood Morphology Comment NOTED (NOT SEEN); Ovalocytes 2+; Platelet Estimate ADEQ
[2024-02-13] MEDS: CARBIDOPA/LEVODOPA 25/100 TAB PO SCH ×2 (14:01→19:50)
--- NOTE | 2024-02-14 00:48 | PN ---
Date of Progress Note: 02/13/2024 Subjective: The patient was seen this morning for followup. No new complaints or problems reported. Objective: General: The patient lying in bed, not in any distress. Vital Signs: Reviewed. HEENT: Unremarkable. Lungs: Clear to auscultation. Heart: Sounds normal. Abdomen: Soft. Bowel sounds normal. No guarding, rigidity, tenderness, distention. Extremities: No leg edema. Laboratory Data: White count 9.3, hemoglobin 8.3, platelets 417. Sodium 138, potassium 3.6, chlorid e 107, bicarb 28, BUN 27, creatinine 1.23, glucose 103, serum albumin . Impression: 1.Left hip fracture. 2.Anemia due to acute blood loss. 3.Hypertension. 4.Hyperlipidemia. 5.Urinary tract infection. Plan: The patient has received adequate number of days of antibiotic and he is on Levaquin. We will discontinue that. Continue current DVT prophylaxis with Lovenox. Continue physical therapy under gu idance of Dr. Cardoza, and continue current antihypertensive medication. I will see him tomorrow fo r followup. SANDRA/MODL Voice ID: [id number] Report ID: [id number]
--- NOTE | 2024-02-14 01:06 | PN ---
Date of Progress Note: 02/13/2024 Time Of Service: 1:30 a.m. Subjective: Mr. Aguirre is walking out of his room with the therapist. While walking, he did have e pisodes of freezing of the right leg and postural instability falling off to the left. The patient h ad a chair right behind him, was able to get back into the chair. Does have some pain that was going down his arm. It is in his left arm, still holding onto the walker, but he had no injury and he did not fall. Review of Systems: Some pain in the left femoral neck where he has the fracture. Otherwise, no fevers, chills, and no o ther positives on the systems review. He does admit to some confusion, which can fluctuate. Physical Examination: Vital Signs: Blood pressure 109/58, pulse 80, respiratory rate 18, temperature 97.3, oxygen saturati on 98%. General: Mr. Aguirre is resting comfortably. He is in no significant distress. Once he is seated, no significant pain in the left femoral neck region. HEENT: He is normocephalic, atraumatic. Sclerae anicteric. Good hemostasis in left femoral neck rolon rgery site. Laboratory Studies: White blood cell count 9.3, hemoglobin 8.3, platelets 417. Sodium 138, potassiu m 3.6, chloride 107, carbon dioxide 28, BUN 27, creatinine 1.23, glucose 103, calcium 8.5. Magnesium 2.5. Albumin 2.4. Prealbumin improved from 6.4 on the to 15.8 on . X-ray/imaging: No new x-rays or imaging. Medications: His medications have been reviewed. He has now increased regimen of carbidopa/levodopa where he will receive 2 tablets 3 times daily first on awakening and about 6 hours later and then 6 hours following that. All other medications have remained unchanged. Progress Made With Physical, Occupational, And Speech Therapy: Today with physical therapy, he ambul ated with parallel bars 8 feet 6 times with contact guard assistance, mobilized wheelchair 125 feet w ith standby assistance with verbal cues. With occupational therapy, moderate assistance for lower b larisa truncal upright transfers, maximum assistance to go to edge of bed, dependent for toilet hygiene. With speech, answered responsive naming questions with 90% accuracy and moderate assistance. Mr. Aguirre is making fair progress although his condition does fluctuate level of pain, level of minesh rtness, and interaction, but once he is engaged and alert and awake, he follows commands appropriatel y and in no significant deficits in his ability to understand what is required of him and how to darnell in safe. However, the patient does easily forget what he is told and would likely require supervisio n on 24 hour basis to prevent additional injury from a potential fall. Assessment: Mr. Aguirre is a -jycj-loo patient in the rehabilitation unit with left femora l neck fracture, status post surgical repair. He has malnutrition and anemia and those are improving . Prostate hypertrophy, coronary artery disease, chronic obstructive pulmonary disease, dyslipidemia , hypertension, postoperative pain. Plan: 1.Continue with physical, occupational, and speech therapy 3.5 hours, 5 of 7 days. 2.Continue Flomax for prostate hypertrophy, Senokot-S for constipation, Protonix for GE reflux, Ensu re Enlive for malnutrition, Namenda 10 mg twice daily for dementia, Megace for his poor appetite, Ann-Marie nivil 10 mg twice daily for hypertension, folic acid for stroke risk reduction, ferrous sulfate for a nemia, Lovenox for DVT prophylaxis, and Eldon as needed for pain. Comorbidities That Are Impacting Rehabilitation: The patient does appear to have some fluctuating le davin of awareness, at times being very poorly responsive, but at times being fully engaged, responsive , appropriately doing well include following all instructions. He does not have any active seizure-l mikael activity when he is not responsive, but he can be stimulated and will interact. No evidence of new or focal deficits. LB/MODL Voice ID: [id number] Report ID: [id number]
[2024-02-14] MEDS: CARBIDOPA/LEVODOPA 25/100 TAB PO SCH (06:54)
--- NOTE | 2024-02-14 09:57 | PN ---
Date of Progress Note: 02/14/2024 Subjective: The patient was seen this morning for followup. No new complaints or problems reported by the patient. Lying in bed, not in any distress. His was present with him. Objective: Vital Signs: Reviewed. HEENT: Unremarkable. Lungs: Clear to auscultation. Heart: Sounds normal. Abdomen: Soft. Bowel sounds normal. No guarding, rigidity, tenderness, distention. Extremities: No leg edema. Impression: 1.Left hip fracture. 2.Hypertension. 3.Hyperlipidemia. 4.Anemia. Plan: We will go ahead and continue current medications. Dr. Cardoza has adjusted his Sinemet for Parkinson disease, and his magnesium level was slightly high. He is getting 400 mg in the morning an d 800 in the evening, and I have asked nursing staff to change the dose to 400 mg once a day. We darci l continue current antihypertensive medication. Antibiotic, Levaquin was discontinued yesterday. Th e patient probably will have his eve removed from left hip tomorrow. Plan is to discharge him to go to [facility] on February 17. SANDRA/MODL Voice ID: [id number] Report ID: [id number]
[2024-02-14] MEDS ORDERED: CARBIDOPA/LEVODOPA 25/100 TAB PO SCH (12:00)
--- NOTE | 2024-02-14 13:27 | P.RH.PN ---
Estimated Length of Stay: 16 Expected Discharge Date: 02/18/24 Discharge Disposition Plan: Home Family Support: Yes Residential Goal: Mobility, Transfers, Self Care Vital Signs: Last Vital Signs Temp 98.0 F 02/14/24 08:00 Pulse 77 02/14/24 08:00 Resp 16 02/14/24 08:00 BP 149/77 H 02/14/24 08:00 Pulse Ox 96 02/14/24 08:00 Laboratory: Laboratory Last Values WBC 9.30 thou/uL (4.3-10.9) 02/13/24 03:43 RBC 2.90 M/uL (4.33-5.43) L 02/13/24 03:43 Hgb 8.3 g/dL (13.6-17.9) L 02/13/24 03:43 Hct 23.7 % (39.6-49.0) L 02/13/24 03:43 MCV 81.7 fL (80-100) 02/13/24 03:43 MCH 28.7 pg (27.0-35.0) 02/13/24 03:43 MCHC 35.1 g/dL (32.0-36.0) 02/13/24 03:43 RDW 15.4 % (12.1-15.2) H 02/13/24 03:43 Plt Count 417 thou/uL (152-406) H 02/13/24 03:43 MPV 7.8 fL (7.6-11.3) 02/13/24 03:43 Neutrophils % 62.8 % (41.7-73.7) 02/13/24 03:43 Lymphocytes % 26.9 % (15.3-44.8) 02/13/24 03:43 Monocytes % 7.5 % (3.3-12.3) 02/13/24 03:43 Eosinophils % 2.1 % (0-4.4) 02/13/24 03:43 Basophils % 0.7 % (0-1.3) 02/13/24 03:43 Absolute Neutrophils 5.8 K/uL (1.8-8.0) 02/13/24 03:43 Segmented Neutrophils 61 % (40-80) 02/13/24 03:43 Absolute Lymphocytes 2.5 K/uL (0.7-4.9) 02/13/24 03:43 Lymphocytes 26 % (15-42) 02/13/24 03:43 Monocytes 2 % (0-10) 02/13/24 03:43 Absolute Monocytes 0.7 K/uL (0.1-1.3) 02/13/24 03:43 Eosinophils 4 % (0-3) H 02/13/24 03:43 Absolute Eosinophils 0.2 K/uL (0-0.5) 02/13/24 03:43 Absolute Basophils 0.1 K/uL (0-0.5) 02/13/24 03:43 Reactive Lymphocytes 7 % 02/13/24 03:43 Platelet Estimate Adeq 02/13/24 03:43 Ovalocytes 2+ 02/13/24 03:43 Schistocytes 1+ 02/13/24 03:43 Morphology Comment Noted (NOT SEEN) 02/13/24 03:43 Sodium 138 mEq/L (136-145) 02/13/24 03:43 Potassium 3.6 mEq/L (3.5-5.1) 02/13/24 03:43 Chloride 107 mEq/L (98-107) 02/13/24 03:43 Carbon Dioxide 28 mEq/L (21-32) 02/13/24 03:43 Anion Gap 6.6 mEq/L (5.0-15.0) 02/13/24 03:43 BUN 27 mg/dL (7-18) H 02/13/24 03:43 Creatinine 1.23 mg/dL (0.70-1.30) 02/13/24 03:43 Est GFR (CKD-EPI) 63 ml/min (=/>90) L 02/13/24 03:43 Glucose 103 mg/dL (74-106) 02/13/24 03:43 POC Glucose 123 mg/dL (65-120) H 02/05/24 20:35 Calcium 8.5 mg/dL (8.5-10.1) 02/13/24 03:43 Magnesium 2.5 mg/dL (1.6-2.4) H 02/13/24 03:43 Albumin 2.4 g/dL (3.4-5.0) L 02/13/24 03:43 Prealbumin 15.8 mg/dL (20-40) L 02/13/24 03:43 Weight: 158 lb 8 oz Wound Present: No Closed Surgical Incision Present: Yes Negative Pressure Wound Therapy Present: No Physician Update: Labs reviewed and are stable with mildly decreased Hgb of 8.3. Met 4/4 short term occupational goals. Improved to min assist with toileting and showering. Dependent toilet. 12 on BIMS and 10 on SLUMs. No able to meat speech goals. Mod assistance with 10' to 30'. Orthostatic hypotension, he will received 1 L of IV fluid. Poor cognitive functioning. He will like be D/Markel to skilled. Summary: Patient's care plan and staff development nurse goals have been reviewed and revised as necessary. Please see the Rehabilitation Signature page for all necessary signatures.
[2024-02-14] MEDS: NA CHLORIDE 0.9% 1,000 ML IV SCH (15:12)
--- NOTE | 2024-02-15 10:29 | PN ---
Date of Progress Note: 02/15/2024 Subjective: The patient was seen this morning for followup. The patient's was present with him at bedside since she arrived about an hour before I got there. The patient has been very drowsy and sleepy. I tried to wake him up. He apparently opens his eyes and goes back to sleep, does not comm unicate, not in any distress. says he was like this most of the day yesterday during daytime as well. Objective: Vital Signs: Reviewed. HEENT: Unremarkable. Lungs: Clear to auscultation. Heart: Sounds normal. Abdomen: Soft. Bowel sounds normal. No guarding, rigidity, tenderness, distention. Extremities: No leg edema. Impression: 1.Left hip fracture. 2.Anemia. 3.Hypertension. 4.Parkinson disease. Plan: With the patient's excessive drowsiness, I will go ahead and discontinue melatonin, hydrocodon e, and baclofen and he takes all these medications on a p.r.n. basis, but we will discontinue that co mpletely. Family was encouraged to assist him with feeding as well as encourage more water intake on ce he wakes up, but try not to feed him while he is sleepy like this to avoid any risk of aspiration and choking. For pain, we may just use Tylenol. At home, the patient's says that he goes to be d around 10 o'clock at nighttime and wakes up at around 10 o'clock in the morning, but then after elizabeth t all day he was not appearing sleepy, so this excessive sleepiness that was noted during daytime yesterday by family was rather different and unusual. I will see him tomorrow for [facility]. SANDRA/MODL Voice ID: [id number] Report ID: [id number]
[2024-02-15] MEDS: ACETAMINOPHEN 325 MG TABLET PO PRN (12:58)
--- NOTE | 2024-02-16 13:03 | PN ---
Date of Progress Note: 02/16/2024 Subjective: The patient was seen this morning for followup. No new complaints or problems reported by the patient. He was lying in bed. His daughter was with him at bedside. This morning, he was sl eeping, but slow better today than yesterday. At least he woke up and talked to me, but went back to sleep. Objective: Vital Signs: Reviewed. HEENT: Unremarkable. Lungs: Clear to auscultation. Heart: Sounds normal. Abdomen: Soft. Bowel sounds normal. No guarding, rigidity, tenderness, distention. Extremities: No leg edema. Impression: 1.Left hip fracture. 2.Parkinson disease. 3.Hypertension. 4.Hyperlipidemia. 5.Anemia. Plan: We will go ahead and continue current medications. Continue Parkinson's medications as per Dr Gale Cardoza. Yesterday, we discontinued muscle relaxant, pain medication, and melatonin that he was g etting for insomnia, so now we do not have any medication contributing to his excessive drowsiness. I did talk yesterday to the patient's and daughter and today the patient's daughter that one has to keep in mind about possibility of dementia contributing to this kind of excessive sleepiness problem now, and we will just have to give more time. I will see him to [facility] for followup. SANDRA/MODL Voice ID: [id number] Report ID: [id number]
[2024-02-17 09:46] LABS: Absolute Basophils 0.1 K/uL (0-0.5); Absolute Eosinophils 0.2 K/uL (0-0.5); Absolute Lymphocytes (CBC) 2.3 K/uL (0.7-4.9); Absolute Monocytes 0.7 K/uL (0.1-1.3); Absolute Neutrophil 7.1 K/uL (1.8-8.0); Basophils % 1.1 % (0-1.3); Hematocrit 29.7 % (39.6-49.0); Lymphocytes % 21.7 % (15.3-44.8); MCH 27.8 pg (27.0-35.0); MCHC 33.5 g/dL (32.0-36.0); MCV 82.9 fL (80-100); MPV 8.4 fL (7.6-11.3); Neutrophils % 68.2 % (41.7-73.7); Platelets 647 thou/uL (152-406); RBC Red Blood Cell Count 3.58 M/uL (4.33-5.43); Red Cell Distribution Width 15.2 % (12.1-15.2)
--- NOTE | 2024-02-17 20:00 | PN ---
Date of Progress Note: 02/17/2024 Subjective: The patient was seen this morning for followup. He was sleeping, wakes up with his eyes open, but did not answer any questions and was getting agitated when I was trying to examine him and he kept on pulling his covers over his head. Objective: Vital Signs: Reviewed. HEENT: Unremarkable. Lungs: Clear to auscultation. Heart: Sounds normal. Abdomen: Soft. Bowel sounds normal. No guarding, rigidity, tenderness, distention. Extremities: No leg edema. Impression: 1.Left hip fracture. 2.Hypertension. 3.Anemia. 4.Hyperlipidemia. Plan: We will go ahead and continue current medications. Continue current Tylenol for pain and we h ave discontinued narcotic pain medication, muscle relaxant, and melatonin to see if that helps to imp rove his drowsiness during daytime. I talked to the patient's this afternoon and she reports th at earlier this morning, the patient was drowsy, but subsequently he woke up, did his therapy, ate hi s meal. He is also having problem with drop in his blood pressure and this is due to unfortunately o rthostatic hypotension from his underlying Parkinson's disease and this problem may continue and one may have to consider possibility of using midodrine if this problem continues. Tomorrow, he is scheduled to get discharged to go to [facility]. SANDRA/MODL Voice ID: [id number] Report ID: [id number]
--- NOTE | 2024-02-17 21:08 | PN ---
Date of Progress Note: 02/17/2024 Time Of Service: 1:15 p.m. Subjective: Mr. Aguirre was ambulating down to the gym to get a shower. On the shower, he did have an episode of low blood pressure related to orthostatic changes and autonomic dysfunction secondary t o Parkinson's disease. He quickly was able to regain awareness and actually did not lose consciousne ss, but just slumped to the side. He did complete a shower. Review of Systems: No fevers, chills, nausea, vomiting, myalgias. Some episodes of confusion as noted that is fluctuati ng. Physical Examination: Vital Signs: Blood pressure 131/69, pulse 82, respiratory rate 18, temperature 98.0, oxygen saturati on 96%. Earlier in the day around 9:22 in the morning, he had orthostatics where lying blood pressur e 126/64, pulse 72, and sitting blood pressure of 71/50, pulse 93. His blood pressure does come back up after he is up for a while. Otherwise, Mr. Aguirre is somewhat slow to respond. Does have maske d face and bradykinesia. General: Shows no significant abnormalities except decrease in movement. Laboratory Studies: White blood cell count 10.0, hemoglobin 10.0, platelets 647. Sodium 134, potass ium 4.0, chloride 108, carbon oxide 23, BUN 21, creatinine 1.39, glucose 116, calcium 9.1. X-ray/imaging: No new x-rays or imaging. Note, he is followed by Dr. Álvarez, his primary care physici an is managing his comorbid conditions. Progress Made With Physical, Occupational, And Speech Therapy: Today with physical therapy, he did s [id number] transfer independently, perform multiple ibk-ke-vlawn transfer from wheelchair to pj g walker with moderate assistance, did require verbal cues. He ambulated 30 feet 3 times with a roll ing walker with maximal assistance. He mobilized a wheelchair 150 feet once with minimum assistance and verbal cues. With occupational therapy, minimum assistance for wmk-sz-aayil, bathing minimum ass istance, upper body dressing setup assistance for donning and hide puller shirt, lower body dressing pa rtial assistance, grooming supervision. With speech, he did retest with speech and he decreased a BI MS score from 12 to 11. His SLUMS score remained at 10. Deficits continue to be attention, memory, and speed of processing. Mr. Aguirre has made fair progress overall with physical, occupational, and speech therapy. However, he is not ready for home as he still requires moderate assistance for many activities and is unstabl e and likely to fall with orthostatic changes, likely secondary to hydration issues and autonomic dys function from Parkinson's disease. Furthermore, he has a left femoral neck fracture which is still h ealing, although he has a weightbearing as tolerating status. He does have difficulty with his cogni tion, making him a risk of falling because of poor safety awareness. Assessment: Mr. Aguirre is a 68-year-old patient with left femoral neck fracture, status post repair , he has Parkinson's disease with autonomic dysfunction, making it difficult for him to maintain an u pright continuous walk as he will drop blood pressure and then he will fall. He has prostate hypertr ophy, coronary artery disease, chronic obstructive pulmonary disease, dyslipidemia, hypertension. Plan: 1.For now, we will continue with physical, occupational, and speech therapy for 3.5 hours, 5 of 7 da ys. 2.He has multiple comorbid condition medications which will be continued. He is followed by Dr. Kaya soria, his primary care physician. Tomorrow, he will be discharged to [facility] to continue with p hysical therapy. He is not at this point ready for home and family are not able to maintain 24-hour care supervision along with safety awareness issues and for management of his comorbid conditions. CHARLENE/LIZBETH Voice ID: [id number] Report ID: [id number]
[2024-02-18 04:38] LABS: Absolute Basophils 0.1 K/uL (0-0.5); Absolute Eosinophils 0.2 K/uL (0-0.5); Absolute Lymphocytes (CBC) 2.2 K/uL (0.7-4.9); Absolute Monocytes 0.7 K/uL (0.1-1.3); Absolute Neutrophil 6.7 K/uL (1.8-8.0); Basophils % 1.1 % (0-1.3); Eosinophils % 2.2 % (0-4.4); Hematocrit 25.1 % (39.6-49.0); Hemoglobin 8.9 g/dL (13.6-17.9); Lymphocytes % 22.5 % (15.3-44.8); MCH 29.3 pg (27.0-35.0); MCHC 35.7 g/dL (32.0-36.0); MCV 82.2 fL (80-100); MPV 7.5 fL (7.6-11.3); Monocytes % 7.3 % (3.3-12.3); Neutrophils % 66.9 % (41.7-73.7); Platelets 491 thou/uL (152-406); RBC Red Blood Cell Count 3.05 M/uL (4.33-5.43); Red Cell Distribution Width 15.7 % (12.1-15.2)
[2024-02-18 04:52] LABS: Albumin 2.7 g/dL (3.4-5.0); Anion Gap 5.2 mEq/L (5.0-15.0); Magnesium 2.3 mg/dL (1.6-2.4); Potassium 4.2 mEq/L (3.5-5.1); Prealbumin 16.7 mg/dL (20-40)
[2024-02-18 08:13] VITALS: TEMP 97.8
[2024-02-18 10:32] VITALS: BP 126/70
== END 2024-02-18 11:35 | DRG 560 ==
LOC: 5TH 15:30
PROVIDERS: ADMIT Internal Medicine; ATTEND Psychiatry & Neurology Neurology with Special Qualifications in Child Neurology
PROC: 0HBRXZZ Excision of Toe Nail, External Approach (ICD-10-PCS; principal; 2024-02-10)
PROC: 0HBRXZZ Excision of Toe Nail, External Approach (ICD-10-PCS; 2024-02-10)
PROC: 0HBRXZZ Excision of Toe Nail, External Approach (ICD-10-PCS; 2024-02-10)
PROC: 0HBRXZZ Excision of Toe Nail, External Approach (ICD-10-PCS; 2024-02-10)
PROC: 0HBRXZZ Excision of Toe Nail, External Approach (ICD-10-PCS; 2024-02-10)
PROC: 0HBRXZZ Excision of Toe Nail, External Approach (ICD-10-PCS; 2024-02-10)
PROC: 0HBRXZZ Excision of Toe Nail, External Approach (ICD-10-PCS; 2024-02-10)
PROC: 0HBRXZZ Excision of Toe Nail, External Approach (ICD-10-PCS; 2024-02-10)
PROC: 0HBRXZZ Excision of Toe Nail, External Approach (ICD-10-PCS; 2024-02-10)
PROC: 0HBRXZZ Excision of Toe Nail, External Approach (ICD-10-PCS; 2024-02-10)
DX: Z47.1 Aftercare following joint replacement surgery (principal); D62 Acute posthemorrhagic anemia; N39.0 Urinary tract infection, site not specified; E46 Unspecified protein-calorie malnutrition; Z96.642 Presence of left artificial hip joint; J44.9 Chronic obstructive pulmonary disease, unspecified; I10 Essential (primary) hypertension; E78.5 Hyperlipidemia, unspecified; I25.10 Atherosclerotic heart disease of native coronary artery without angina pectoris; N40.0 Benign prostatic hyperplasia without lower urinary tract symptoms; M47.892 Other spondylosis, cervical region; N28.9 Disorder of kidney and ureter, unspecified; D64.9 Anemia, unspecified; F03.90 Unspecified dementia, unspecified severity, without behavioral disturbance, psychotic disturbance, mood disturbance, and anxiety; E87.5 Hyperkalemia; K21.9 Gastro-esophageal reflux disease without esophagitis; G47.00 Insomnia, unspecified; G20.A1 Parkinson's disease without dyskinesia, without mention of fluctuations; Z87.891 Personal history of nicotine dependence; B35.1 Tinea unguium; Z79.01 Long term (current) use of anticoagulants
CPT/HCPCS: 36415; 70450; 80048; 82040; 82947; 83735; 84134; 85025; 92523; 92526; 93005; 97110; 97116; 97129; 97163; 97165; 97530; 97542; J0696; J1650; J2001; J3420; J7030

== ENCOUNTER 2024-11-23 14:21 | Emergency (ER) | payer OTHER ==
--- NOTE | 2024-11-23 16:33 | RAD REPORT ---
Procedure: Chest Single View HISTORY: Malaise COMPARISON: January 2024 FINDINGS: The lungs appear clear of acute infiltrate. No significant pleural effusion noted. The heart is mildly enlarged. IMPRESSION: No acute abnormality is displayed.
[2024-11-23 16:57] LABS: Absolute Basophils 0.1 K/uL (0-0.5); Absolute Lymphocytes (CBC) 0.8 K/uL (0.7-4.9); Absolute Monocytes 0.9 K/uL (0.1-1.3); Basophils % 0.4 % (0-1.3); Eosinophils % 0.1 % (0-4.4); Hematocrit 27.1 % (39.6-49.0); Hemoglobin 9.1 g/dL (13.6-17.9); Lymphocytes % 6.2 % (15.3-44.8); MCH 27.8 pg (27.0-35.0); MCHC 33.6 g/dL (32.0-36.0); MCV 82.6 fL (80-100); MPV 8.2 fL (7.6-11.3); Monocytes % 6.9 % (3.3-12.3); Neutrophils % 86.4 % (41.7-73.7); Platelets 371 thou/uL (152-406); RBC Red Blood Cell Count 3.28 M/uL (4.33-5.43); Red Cell Distribution Width 16.5 % (12.1-15.2)
[2024-11-23 17:06] LABS: PT Prothrombin Time 13.8 SECONDS (9.4-12.5); PTT, Activated Partial Thromb 27.9 SECONDS (24.3-36.9); Protime INR 1.24
[2024-11-23 17:14] LABS: Albumin 3.7 g/dL (3.4-5.0); Albumin/Globulin Ratio 0.7 (1.1-1.8); Anion Gap 12.9 mEq/L (5.0-15.0); Bilirubin Total 1.5 mg/dL (0.2-1.0); Potassium 3.9 mEq/L (3.5-5.1); Protein, Total 8.7 g/dL (6.4-8.2)
[2024-11-23] MEDS ORDERED: NA CHLORIDE 0.9% 1,000 ML ONE ×2 (17:27→20:38)
[2024-11-23] MEDS ORDERED: HALOPERIDOL LACT 5 MG/ML INJ ONE ×2 (17:53→20:38)
[2024-11-23 17:59] LABS: Anisocytosis SLIGHT; Blood Morphology Comment NOTED (NOT SEEN); Platelet Estimate ADEQ; White Blood Cell Scan OK (OK)
[2024-11-23 19:45] LABS: Specific Gravity 1.024 (1.005-1.030); Sqamous Epithelial None Seen /HPF (None Seen); Urine Bacteria Loaded /HPF (<20); Urine Bilirubin NEGATIVE (Negative); Urine Blood Trace (Negative); Urine Clarity Turbid (Clear); Urine Color Yellow (Yellow); Urine Culture Reflex Order NOT NEEDED; Urine Glucose NEGATIVE (Negative); Urine Ketones 1+ (Negative); Urine Microscopic Reflex YN ORDER UMIC; Urine Mucus Slight /HPF (None Seen); Urine Nitrite NEGATIVE (Negative); Urine Protein TRACE (Negative); Urine RBC <5 /HPF (None Seen); Urine Urobilinogen Normal (Normal); Urine WBC Clump Rare /HPF (None Seen); Urine pH 5.5 (5.0-7.0)
--- NOTE | 2024-11-23 20:15 | ER ---
Nurse's Notes [facility] Name: Mandeep Aguirre Age: 69 yrs Sex: Male : 1955 Arrival Date: 11/23/2024 Time: 14:21 Bed 25 Private MD: Diagnosis: History of falling;UTI/ Urinary tract infection, site not specified;Altered mental status, unspecified Presentation: 11/23 14:44 Chief complaint: reports he is more confused than normal and not wanting to eat hb for last 3 days. Coronavirus screen: At this time, the client does not indicate any symptoms associated with coronavirus-19. Ebola Screen: No symptoms or risks identified at this time. Initial Sepsis Screen: Does the patient meet any 2 criteria? No. Patient's initial sepsis screen is negative. Does the patient have a suspected source of infection? No. Patient's initial sepsis screen is negative. Risk Assessment: Do you want to hurt yourself or someone else? Patient reports no desire to harm self or others. Onset of symptoms was November 20, 2024. 14:44 Method Of Arrival: Wheelchair hb 14:44 Acuity: CARLIE 2 hb Historical: - Allergies: 14:45 No Known Allergies; hb - PMHx: 14:45 Dementia; Hypertension; Myocardial infarction; hb - Immunization history:: Adult Immunizations up to date. - Infectious Disease History:: Denies. - Social history:: Smoking status: Patient denies any tobacco usage or history of. Screenin:00 [facility] ED Fall Risk Assessment (Adult) History of falling in the last 3 months, jb4 including since admission Yes- single mechanical fall (1 pt) Confusion or Disorientation No (0 pts) Intoxicated or Sedated Yes (3 pts) Impaired Gait Yes (1 pt) Mobility Assist Device Used Yes (1 pt) Altered Elimination Yes (1 pt) Score/Fall Risk Level 3 or more points = High Risk Oriented to surroundings, Maintained a safe environment. Abuse screen: Denies threats or abuse. Nutritional screening: No deficits noted. Tuberculosis screening: No symptoms or risk factors identified. Assessment: 17:15 General: Appears in no apparent distress. comfortable, Behavior is restless, jb4 uncooperative. Pain: Unable to use pain scale. Patient is disoriented. Neuro: Level of Consciousness is awake, confused, Oriented to none. Cardiovascular: Patient's skin is warm and dry. Respiratory: Airway is patent Respiratory effort is even, unlabored, Respiratory pattern is regular, symmetrical. Derm: Skin is intact, Skin is pink, warm \T\ dry. 18:15 Reassessment: Patient appears in no apparent distress at this time. No changes from jb4 previously documented assessment. Patient and/or family updated on plan of care and expected duration. Pain level reassessed. 19:15 Reassessment: Patient appears in no apparent distress at this time. Patient and/or jb4 family updated on plan of care and expected duration. Pain level reassessed. Pt resting peacefully in bed with eyes closed, respirations are even and unlabored, family at the bedside. 20:00 Reassessment: Pt becoming more restless and agitated. See [facility] for orders. jb4 21:21 Reassessment: Pt resting peacefully in bed with family at bedside. jb4 23:21 Reassessment: Patient appears in no apparent distress at this time. No changes from jb4 previously documented assessment. Patient and/or family updated on plan of care and expected duration. Pain level reassessed. Vital Signs: 14:44 BP 130 / 74; Pulse 106; Resp 18; Temp 97.4(TE); Pulse Ox 98% on R/A; Weight 66.68 kg; hb Height 5 ft. 8 in. ; 19:00 BP 126 / 82; Pulse 116; Resp 19; Pulse Ox 100% on R/A; jb4 20:00 BP 149 / 68; Pulse 118; Resp 16; Pulse Ox 97% on R/A; jb4 21:00 BP 158 / 79; Pulse 113; Resp 20; Temp 100.9(A); Pulse Ox 97% ; jb4 22:00 BP 156 / 80; Pulse 115; Resp 21; Pulse Ox 96% on R/A; jb4 23:00 BP 147 / 79; Pulse 96; Resp 15; Pulse Ox 96% on R/A; jb4 14:44 Body Mass Index 22.35 (66.68 kg, 172.72 cm) hb ED Course: 14:26 Patient arrived in ED. al6 14:40 Crissy Mauro MD is Attending Physician. gb1 14:45 Triage completed. hb 14:45 Arm band placed on. hb 16:21 Chest Single View XRAY In Process Unspecified. EDMS 16:45 Initial lab(s) drawn, by me, sent to lab. First set of blood cultures drawn Second set kb4 of blood cultures drawn by me. 16:50 Inserted saline lock: 20 gauge in right antecubital area, using aseptic technique. kb4 Blood collected. Flushed with 10 mL NS. 18:00 Patient has correct armband on for positive identification. Bed in low position. Call jb4 light in reach. Side rails up X 1. Provided Education on: plan of care to family. 19:27 Urinalysis w/ reflexes Sent. vk 20:04 Attending Physician role handed off by Crissy Mauro MD rt 20:04 Keanu Barker MD is Attending Physician. rt 21:03 Ceferino Terrell RN is Primary Nurse. jb4 23:29 No provider procedures requiring assistance completed. Patient transferred, IV remains jb4 in place. Administered Medications: 17:37 Not Given (Other Intervention Used): ns 0.9% (30 ml/kg) 30 ml/kg IV at bolus once; jb4 Sepsis Protocol; to be given as a bolus over 90 minutes 17:38 Drug: NS 0.9% IV 1000 ml IV at 1000 ml once; to be given as a bolus over 60 minutes jb4 Route: IV; Rate: 1000 ml; Site: right antecubital; 17:59 Drug: Haloperidol IVP 2.5 mg IVP once Route: IVP; Site: right antecubital; jb4 20:50 Drug: Rocephin IV 2 grams IV at bolus once; Given slow IV push per pharmarcy jb4 instructions Route: IV; Rate: bolus; Site: right antecubital; 20:50 Drug: Haloperidol IVP 2.5 mg IVP once Route: IVP; Site: right antecubital; jb4 20:50 Drug: NS 0.9% IV 1000 ml IV at 1000 ml once; to be given as a bolus over 60 minutes jb4 Route: IV; Rate: 1000 ml; Site: right antecubital; 20:59 Drug: Acetaminophen IL Suppository 650 mg IL once Route: IL; jb4 Outcome: 20:14 ER care complete, transfer ordered by . gb1 23:29 Transferred by ground EMS to [facility], Transfer form completed. jb4 X-rays sent w/ patient. 23:29 Condition: stable 23:29 Discharge instructions given to family, Instructed on the need for transfer, Demonstrated understanding of instructions, 23:29 Patient left the ED. jb4 Signatures: Dispatcher [employer] EDHeather Young, SEE RN Ceferino Terrell RN RN jb4 Keanu Barker MD MD rt Crissy Mauro MD MD gb1 Eda Chavarria Alissa al6 Neha Herman kb4 Corrections: (The following items were deleted from the chart) 21:20 20:15 Reassessment: Pt now resting peacefully in bed with eyes closed, and family at jb4 the bedside. Respirations are even an unlabored with no s/s of pain or distress noted. jb4 21:21 19:15 Reassessment: Patient appears in no apparent distress at this time. No changes jb4 from previously documented assessment. Patient and/or family updated on plan of care and expected duration. Pain level reassessed. jb4 : 20:00 Reassessment: Pt now resting peacefully in bed with eyes closed, and family at jb4 the bedside. Respirations are even an unlabored with no s/s of pain or distress noted. jb4 :21 20:30 Reassessment: Pt becoming more restless and agitated. See MAR for orders. jb4 jb4
--- NOTE | 2024-11-23 20:15 | EDPHYS ---
Physician Documentation [facility] Name: Mandeep Aguirre Age: 69 yrs Sex: Male : 1955 Arrival Date: 11/23/2024 Time: 14:21 Bed 25 Private MD: ED Physician Keanu Barker HPI: 11/23 19:23 This 69 yrs old Male presents to ER via Wheelchair with complaints of muscle gb1 spasms, not eatting much. 19:23 69-year-old male brought by his and [id number] for altered mental status. gb1 Patient had a decrease p.o. intake as well. He has a history of dementia, hypertension and DE. Patient fell about a week ago and broke his left arm. He went to urgent care and had the arm evaluated but no other imaging was done. Patient does have a history of overflow incontinence. Patient's mental status has been declining per the straight edger since the fall.. Historical: - Allergies: 14:45 No Known Allergies; hb - PMHx: 14:45 Dementia; Hypertension; Myocardial infarction; hb - Immunization history:: Adult Immunizations up to date. - Infectious Disease History:: Denies. - Social history:: Smoking status: Patient denies any tobacco usage or history of. Exam: 19:23 Constitutional: This is a well developed, well nourished patient who is awake, alert, gb1 and in no acute distress. Patient has dry mucous membranes Head/Face: Normocephalic, atraumatic. Eyes: Pupils equal round and reactive to light, extra-ocular motions intact. Lids and lashes normal. Conjunctiva and sclera are non-icteric and not injected. Cornea within normal limits. Periorbital areas with no swelling, redness, or edema. ENT: Nares patent. No nasal discharge, no septal abnormalities noted. Tympanic membranes are normal and external auditory canals are clear. Oropharynx with no redness, swelling, or masses, exudates, or evidence of obstruction, uvula midline. Mucous membranes moist. Neck: Trachea midline, no thyromegaly or masses palpated, and no cervical lymphadenopathy. Supple, full range of motion without nuchal rigidity, or vertebral point tenderness. No Meningismus. Chest/axilla: Normal chest wall appearance and motion. Nontender with no deformity. No lesions are appreciated. Cardiovascular: Tachycardic rate and rhythm with a normal S1 and S2. No gallops, murmurs, or rubs. Normal PMI, no JVD. No pulse deficits. Respiratory: Lungs have equal breath sounds bilaterally, clear to auscultation and percussion. No rales, rhonchi or wheezes noted. No increased work of breathing, no retractions or nasal flaring. Abdomen/GI: Soft, non-tender, with normal bowel sounds. No distension or tympany. No guarding or rebound. No evidence of tenderness throughout. Back: No spinal tenderness. No costovertebral tenderness. Full range of motion. Skin: Warm, dry with normal turgor. Normal color with no rashes, no lesions, and no evidence of cellulitis. MS/ Extremity: Pulses equal, no cyanosis. Neurovascular intact. Full, normal range of motion. Neuro: Patient is worse than his baseline mental status per the patient's at the bedside. Motor strength 5/5 in all extremities. Sensory grossly intact. Vital Signs: 14:44 BP 130 / 74; Pulse 106; Resp 18; Temp 97.4(TE); Pulse Ox 98% on R/A; Weight 66.68 kg; hb Height 5 ft. 8 in. ; 19:00 BP 126 / 82; Pulse 116; Resp 19; Pulse Ox 100% on R/A; jb4 20:00 BP 149 / 68; Pulse 118; Resp 16; Pulse Ox 97% on R/A; jb4 21:00 BP 158 / 79; Pulse 113; Resp 20; Temp 100.9(A); Pulse Ox 97% ; jb4 22:00 BP 156 / 80; Pulse 115; Resp 21; Pulse Ox 96% on R/A; jb4 23:00 BP 147 / 79; Pulse 96; Resp 15; Pulse Ox 96% on R/A; jb4 14:44 Body Mass Index 22.35 (66.68 kg, 172.72 cm) hb MDM: 17:05 Medical Screening Exam initiated gb1 19:23 ED course: 69-year-old male with a history of Parkinson's dementia here with gb1 decreased mental status status post a fall with 2 days ago where he broke his left arm. There is a concern for subdural hematoma that is contributing to his decline in mental state. Our CT scanner is not working so we will have to transfer the patient out to rule out any acute head injury. Also differential is acute prostatitis versus URI with pneumonia versus COVID/flu. Patient is also mildly dehydrated and not eating or drinking well. We will transfer the patient out to [facility] most likely to obtain a CT brain and then disposition the patient per the results of the CT brain. Urinalysis is also pending.. 20:12 Data reviewed: vital signs, nurses notes. ED course: 69 year old male with history of gb1 dementia s/p fall with AMS, pt with UTI and likely early sepsis. Fell a few days-week ago/ broke left wrist, needs CT Brain to r/o SDH. Will add antibx/Rocephin for now. Pts care transferred to Dr. Barker, will initiate transfer now.. 11/24 01:36 Differential diagnosis: Spasms, dehydration, electrolyte disturbance. I considered the rt following discharge prescriptions or medication management in the emergency department Medications were administered in the Emergency Department. See MAR. Counseling: I had a detailed discussion with the patient and/or guardian regarding the historical points, exam findings, and any diagnostic results supporting the discharge/admit diagnosis, lab results, the need for outpatient follow up. Response to treatment: the patient's symptoms have markedly improved after treatment. 01:37 Differential diagnosis:. Care significantly affected by the following chronic rt conditions: Hypertension. 11/23 15:35 Order name: Blood Culture Adult (2) gb1 11/23 15:35 Order name: CBC with Diff; Complete Time: 19:04 gb1 11/23 15:35 Order name: CMP; Complete Time: 17:27 gb1 11/23 15:35 Order name: Lactate w/ 2H reflex if indic.; Complete Time: 17:27 gb1 11/23 15:35 Order name: Protime (+inr); Complete Time: 17:27 gb1 11/23 15:35 Order name: Ptt, Activated; Complete Time: 17:27 gb11/23 15:35 Order name: Urinalysis w/ reflexes; Complete Time: 20:04 gb1 11/23 17:59 Order name: CBC Smear Scan; Complete Time: 19:04 EDMS 11/23 15:35 Order name: Chest Single View XRAY; Complete Time: 16:43 gb1 11/23 15:35 Order name: Accucheck; Complete Time: 17:19 11/23 15:35 Order name: Cardiac monitoring; Complete Time: 17:52 11/23 15:35 Order name: EKG - Nurse/Tech; Complete Time: 17:52 11/23 15:35 Order name: IV Saline Lock - Large Bore; Complete Time: 16:52 11/23 15:35 Order name: Labs collected and sent; Complete Time: 16:52 11/23 15:35 Order name: O2 Per Protocol; Complete Time: 17:19 11/23 15:35 Order name: O2 Sat Monitoring; Complete Time: 17:19 11/23 15:35 Order name: Vital Signs; Complete Time: 17: Administered Medications: 11/23 17:37 Not Given (Other Intervention Used): ns 0.9% (30 ml/kg) 30 ml/kg IV at bolus once; jb4 Sepsis Protocol; to be given as a bolus over 90 minutes 17:38 Drug: NS 0.9% IV 1000 ml IV at 1000 ml once; to be given as a bolus over 60 minutes jb4 Route: IV; Rate: 1000 ml; Site: right antecubital; 17:59 Drug: Haloperidol IVP 2.5 mg IVP once Route: IVP; Site: right antecubital; jb4 20:50 Drug: Rocephin IV 2 grams IV at bolus once; Given slow IV push per pharmarcy jb4 instructions Route: IV; Rate: bolus; Site: right antecubital; 20:50 Drug: Haloperidol IVP 2.5 mg IVP once Route: IVP; Site: right antecubital; jb4 20:50 Drug: NS 0.9% IV 1000 ml IV at 1000 ml once; to be given as a bolus over 60 minutes jb4 Route: IV; Rate: 1000 ml; Site: right antecubital; 20:59 Drug: Acetaminophen HI Suppository 650 mg HI once Route: HI; jb4 Disposition Summary: 11/23/24 20:14 Transfer Ordered Notes: Transfer Location: Other [facility] gb1 Reason: Higher level of care gb1 Condition: Fair gb1 Problem: an acute exacerbation gb1 Symptoms: have worsened gb1 Accepting Physician: ED(11/23/24 23:29) jb4 Diagnosis - History of falling gb1 - UTI/ Urinary tract infection, site not specified gb1 - Altered mental status, unspecified gb1 Forms: - Medication Reconciliation Form gb1 - SBAR form gb1 Signatures: Dispatcher [employer] EDMS Heather Almonte, RN RN Ceferino Terrell RN RN jb4 Keanu Barker MD MD rt Crissy Mauro MD MD gb1 Corrections: (The following items were deleted from the chart) 15:35 15:35 BLOOD CULTURE*+BA.LAB.BRZ ordered. EDMS EDMS 15:35 15:35 CBC+H.LAB.BRZ ordered. EDMS EDMS 15:35 15:35 COMPREHENSIVE METABOLIC PANEL+C.LAB.BRZ ordered. EDMS EDMS 15:35 15:35 LACTATE+C.LAB.BRZ ordered. EDMS EDMS 15:35 15:35 PROTIME (+INR)+COAG.LAB.BRZ ordered. EDMS EDMS 15:35 15:35 PTT, ACTIVATED+COAG.LAB.BRZ ordered. EDMS EDMS 15:35 15:35 Urinalysis+U.LAB.BRZ ordered. EDMS EDMS 15:35 15:35 Chest Single View+RAD.RAD.BRZ ordered. EDMS EDMS 19:07 19:07 [place] ordered. gb1 gb1 20:14 19:07 [place] ordered. gb1 jb4 23:29 20:14 ED gb1 jb4
[2024-11-23] MEDS ORDERED: CEFTRIAXONE 2000 MG/VIAL ONE (20:38)
[2024-11-23] MEDS ORDERED: ACETAMINOPHEN 650MG/RECT SUPP PR ONE (20:38)
[2024-11-23] MEDS ORDERED: NA CHLORIDE 0.9% 100 ML ONE (20:38)
[2024-11-23 23:45] VITALS: TEMP 100.9
[2024-11-23 23:47] VITALS: O2SAT 96
[2024-11-23 23:48] VITALS: BP 147/79
--- NOTE | 2024-11-30 11:06 | EKG ---
Test Date: 2024-11-23 Test Time: 17:49:13 Stock Handler: ABBIE MEASUREMENT RESULTS: Intervals: Rate: 103 MS: 202 QRSD: 92 QT: 402 QTc: 526 [place]: P: 47 MS: 202 QRS: -69 T: -32 INTERPRETIVE STATEMENTS: Sinus tachycardia Left anterior fascicular block Septal infarct, age undetermined ST & T wave abnormality, consider inferior ischemia ST & T wave abnormality, consider anterior ischemia Abnormal ECG Compared to ECG 02/07/2024 10:21:48 ST (T wave) deviation now present Possible ischemia now present Atrial premature complex(es) no longer present Myocardial infarct finding still present Electronically Signed On 11-30-24 10:58:47 PRESALES SENIOR SPECIALIST by Michael Ch
== END 2024-11-23 23:29 | disposition short-term general hospital (02) ==
LOC: ER 14:21
DX: N39.0 Urinary tract infection, site not specified (principal); R41.82 Altered mental status, unspecified; F03.90 Unspecified dementia, unspecified severity, without behavioral disturbance, psychotic disturbance, mood disturbance, and anxiety; I25.2 Old myocardial infarction; R32 Unspecified urinary incontinence
CPT/HCPCS: 93005; 87040 ×2; 85025; 81001; 36415; 85610; 83605; 85730; 80053; 71045; 96375; 96374; 99285; J1630 ×2; J0696; J7030 ×2

== ENCOUNTER 2024-11-28 08:35 | Inpatient (IN) | payer OTHER ==
[2024-11-28] MEDS ORDERED: DOCUSATE NA/SENNA CONC 1 TAB PO PRN (15:40)
[2024-11-28] MEDS ORDERED: ACETAMINOPHEN 500 MG TAB PO PRN (15:41)
[2024-11-28] MEDS: CARBIDOPA/LEVODOPA 25/100 TAB PO SCH (20:21)
[2024-11-28] MEDS: METOPROLOL XL 50 MG TAB PO SCH (20:22)
[2024-11-28] MEDS: APIXABAN 2.5 MG TABLET PO SCH (20:22)
[2024-11-28] MEDS: CEFDINIR 300 MG CAP PO SCH (20:22)
[2024-11-28] MEDS: TAMSULOSIN 0.4 MG SR CAP PO SCH (20:22)
[2024-11-28] MEDS: ATORVASTATIN 40 MG TAB PO SCH (20:22)
[2024-11-28] MEDS: FAMOTIDINE 20 MG TAB PO SCH (20:22)
[2024-11-28] MEDS: MEMANTINE HCL 10 MG TABLET PO SCH (20:22)
[2024-11-28] MEDS ORDERED: CARBIDOPA/LEVODOPA 25/100 TAB PO SCH (21:00)
--- NOTE | 2024-11-29 04:23 | HP ---
Date of Admission: 11/28/2024 Time Of Service: 9:00 p.m. Chief Complaint: I broke my arm. History Of Present Illness: Mr. Kaufman is a right-handed patient with Parkinson disease, coronary artery disease, benign prostatic hypertrophy, gastroesophageal reflux disease, hyp ertension, who was at baseline ambulatory with a rolling walker at home. However, he had become more unstable with his gait secondary to his Parkinson disease with dementia and fell about over 2 weeks ago, injuring the left arm and imaging showed the left upper extremity humeral fracture. He was eval uated by Dr. Almaguer and determined to not require surgical intervention, but he would heal by secondary intention with a sling and to be kept nonweightbearing for 2 to 3 months. His family notes the romario ent is typically confused at night with ; however, since fall, he had worsened becoming mor e confused, disoriented, and as a result, he was taken to the emergency department, where due to the [facility] not having CT scan operational, was sent to [facility] on the 24 of November fo r further evaluation. He was diagnosed with urinary tract infection, started on Rocephin on the [facility] to complete 7 days. He also received folic acid and B12 supplementation. His CT scan at [facility] showed no acute intracranial processes. It was remarkable for chronic small vessel ischem ic disease and generalized brain atrophy. He did have a low hemoglobin down to 6.6 and was given a u nit of packed red blood cells and since the hemoglobin is maintained around 9.2. While at [facility] he is diagnosed with toxic metabolic encephalopathy as a result of the urinary tract infectio n. He returned to his baseline level of functioning for his family, but still had nighttime confusio n, poor oral intake and the inability to ambulate safely. As this is a significant decline in his seline level of functioning and as he is incontinent of bladder but continent of bowel, the patient w as felt to be a better candidate for inpatient rehabilitation and therefore that was requested. Jad ordoñez, he was evaluated by speech and found to be cleared for soft bite size diet as he had some co ughing with eating and a modified barium swallow study was recommended. However, the study was not d one at [facility], but was said that may be done while in rehabilitation. Therefore, the patient will be placed on a soft bite size diet so until he can be cleared by a modified barium swallow study. Lisa pacheco requires maximum assistance for [id number], moderate assistance for bed mobility and moderate assistance for mobilization, ambulation with a wheelchair and walker. Also, he has issues of safety awareness and cognitive impairment which requires speech. As a result, he is admitted to the [facility] rehabilitation unit for physical, occupational, and speech therapy to help him return to his [facility] level of functioning and reduce his risk of rehospitalization. Past Medical History: Dementia, likely secondary to Parkinson's related dementia, hypertension, myoc ardial infarction, coronary artery disease, percutaneous coronary stent placement x2. He is also on aspirin and Plavix. Has prostate hypertrophy, gastroesophageal reflux disease. Allergies: NO KNOWN DRUG ALLERGIES. BRAIN IMAGING, CT SCAN WITHOUT CONTRAST ON THE November SHOWED NO ACUTE INTRACRANIAL PROCESS. HE HAS CHRONIC SMALL VESSEL ISCHEMIC DISEASE AND GENERALIZED BRAIN ATROPHY. Current Medications: Tylenol 500 mg every 4 hours as needed, Norvasc 10 mg daily, Eliquis 2.5 mg twi ce daily, aspirin 81 mg daily, Lipitor 40 mg at bedtime, Sinemet 25/100 two tablets 3 times daily, ce fdinir 300 mg twice daily, Pepcid 20 mg at bedtime, Proscar 5 mg daily, folic acid 1 mg daily, magnes ium oxide 400 mg daily, Namenda 10 mg twice daily, Toprol 50 mg at bedtime, Protonix 40 mg daily, Sen okot-S 2 at bedtime, Zoloft 50 mg daily, Flomax 0.4 mg at bedtime, and tramadol 50 mg every 4 hours a s needed. Laboratory Studies: White blood cell count 9.2, hemoglobin also 9.2, hematocrit 29.2, platelets 291, potassium 4.1, BUN 16, creatinine 0.83, calcium 8.7, albumin 2.7. Sodium 138. Review of Systems: Mr. Aguirre did report although he was smiling and talking that the pain in the left humerus where th e fracture is about 7 to 8/10. The nursing staff indicated he did not mention pain to them, but when I came in he mentioned it and he will have pain patch, lidocaine patch placed on the left arm and tr amadol was added along with Tylenol to manage his pain. Otherwise, he denies any stool incontinence. His urine is an issue and able to control this. He would like to still feels somewhat disoriented, but denies fevers. Denies chills. No generalized myalgias or arthralgias. No rash. Current Level Of Functioning: Eating at supervision is soft bite size diet, grooming moderate assist ance. Bathing, upper body dressing, lower body dressing all moderate assistance. Toileting, maximum assistance, wheelchair transfer maximal assistance, ambulation max assist. Stairs not attempted yet . Comprehension, he does comprehend but difficulty with complicated communication. He understands s imple communications and he expresses himself well. Physical Examination: Vital Signs: Blood pressure 144/74, pulse 67, respiratory rate 16, temperature 97.4, O2 saturation 9 9%. General: Mr. Kaufman is resting comfortably in bed despite mentioned of the pain. HEENT: He appears normocephalic, atraumatic. Sclerae anicteric. Oropharynx pink, moist. Neck: Supple. Chest: Clear. Extremities: Left arm is in a sling and is lying. No significant clubbing, cyanosis, or edema noted . Neurological: He is alert and oriented to person and knows he is at home. Follows commands appropri ately. Cranial nerves show no focal deficits. The left arm while he is managing pain and moves with out difficulty and flexed the forearm and moves the elbow and the left arm is in a sling and he is no t bearing weight in that arm. Right side, no focal deficits in the lower extremities. No focal defi cits there as well. He has at least 4/5 strength and symmetric in the lower extremities. Assessment: Mr. Aguirre is a 69-year-old patient is admitted to the rehabilitation unit with impairm ent category 06, neurological condition. Impairment group code is 03.2 parkinsonism. Etiologic diag nosis, Parkinson disease. He does have the risk of rigidity, falls, dysphagia, and worsening pain in the left where he has a fracture. His comorbidities are dementia with sundowning, likely secondary to Parkinson disease, coronary artery disease, benign prostatic hypertrophy, gastroesophageal reflux disease, hypertension, and dysphagia. Plan: He will have physical, occupational, and speech therapy for 3.5 hours, 5 of 7 days. We will a ddress DVT prophylaxis with Eliquis 2.5 mg twice daily, Norvasc 10 mg daily for his blood pressure co ntrol, Tylenol and tramadol on board for pain, cefdinir to continue his antibiotic treatment for urin inocencia tract infection, Lipitor for his dyslipidemia, Pepcid for GE reflux, and lidocaine patch on left arm. Magnesium oxide for muscle spasms, Namenda for his dementia, Toprol for heart rate and blood pr essure control, Senokot for constipation, and Zoloft for his mood stabilization. Comorbidities That Are Impacting Rehabilitation: Mr. Aguirre does have some mild and at times modera te cognitive impairment, especially at nighttime. The nursing staff will if need be bed alarm or lexi ir alarm to minimize the risk of him leaving bed without safety consciousness and falling. We will h ave him as close to the nursing station for easy observation. He has urinary tract infection and he is on antibiotics which he will continue. We will do a followup urinalysis to assess clearing. He d id receive a unit of blood prior to coming in. Currently, hemoglobin is stable. Hematocrit and hemo globin will be followed and blood work in the morning. Rehab Specific Plan: Mr. Aguirre will have physical, occupational, and speech therapy to improve his ability to transfer safely from a bed to a chair to a wheelchair to a rolling walker, on off the josé luis let and to shower. Occupational therapy, with dressing, is his upper and lower body dressing and don diana and doffing his footwear. In addition, while maintaining nonweightbearing status on the left ar m which should be in a sling and again pain patch is added. If he is unable to maintain the regular sling, Velcro attachment may be used to have the arm remain across the upper abdomen area to minimize the chance of him using it as to bear weight. He will have speech to help status is swallowing [place] and modified barium swallow study will be done prior to him being cleared for a regular diet and currently will be on soft bite size. Mr. Aguirre has understanding of the process of admission to the inpatient rehabilitation facility, h ow he will benefit from physical, occupational, and speech therapy. He will have 24 hours a day, 7 d ays a week skilled rehabilitation nursing, daily physician evaluation and management, and social serv ice evaluation and management for discharge planning, home equipment, physician followup and to nikolay nue with therapy. Currently, Dr. Álvarez, his primary care physician is following him and, however, if need be, the patient will be seen by orthopedic service again, Dr. Evans. Prior to discharge, he has cognitive issues and which places him in a position for safety awareness w hich may result in additional falls and injury, fall precautions to be adhered at all times, bed alar m and chair alarm to be in place if need be. His left arm will require 2 to 3 months of time force h ealing, which will be longer than the time he will be allowed in inpatient rehab depending on how he is doing. He may have to go to [facility] prior to going home. Length of stay is about 12 to 14 days. Disposition: Expected to be home with family and continue therapy via Home Health. Prognosis: Good. Code Status: Full code. Rehab Goals: 1.To become independent with upper and lower body dressing while the left arm is in a sling. Indepe ndent with donning and doffing footwear. 2.Independently transfer in and out of bed, on and off the commode and in and out of shower, also to mobilize a wheelchair 250 feet with modified independence, ambulate with a right side cane with silvia fied independence around 250 feet and up and down 10 steps with the right hand rail with modified ind ependence. In addition for his ability to eat after modified barium swallow study, the goal is for h im to be able to eat independently without the need for any modification of his diet. The goals were reviewed with Mr. Aguirre and he is in agreement. By signing this document, I acknowledge I personally performed a full physical examination on Mr. Amado abebe, no later than 24 hours after his admission to the inpatient rehabilitation facility and determi saman that he is able to tolerate the above course of treatment at an intensive level for a reasonable period of time. A detailed individualized plan of care for him will be completed by hospital day 4 b ased on the preadmission screen, history and physical, and therapy evaluations. IVETTE Voice ID: [id number]
[2024-11-29 06:23] LABS: Absolute Basophils 0.1 K/uL (0-0.5); Absolute Eosinophils 0.3 K/uL (0-0.5); Absolute Lymphocytes (CBC) 1.9 K/uL (0.7-4.9); Absolute Monocytes 0.7 K/uL (0.1-1.3); Absolute Neutrophil 5.6 K/uL (1.8-8.0); Basophils % 0.8 % (0-1.3); Eosinophils % 3.2 % (0-4.4); Hematocrit 29.3 % (39.6-49.0); Hemoglobin 9.8 g/dL (13.6-17.9); Lymphocytes % 22.5 % (15.3-44.8); MCH 27.4 pg (27.0-35.0); MCHC 33.6 g/dL (32.0-36.0); MCV 81.7 fL (80-100); Monocytes % 7.7 % (3.3-12.3); Neutrophils % 65.8 % (41.7-73.7); Platelets 350 thou/uL (152-406); RBC Red Blood Cell Count 3.58 M/uL (4.33-5.43); Red Cell Distribution Width 15.8 % (12.1-15.2)
[2024-11-29 06:43] LABS: Albumin 2.6 g/dL (3.4-5.0); Anion Gap 8.2 mEq/L (5.0-15.0); Magnesium 2.3 mg/dL (1.6-2.4); Potassium 4.2 mEq/L (3.5-5.1); Prealbumin 13.1 mg/dL (20-40)
[2024-11-29] MEDS: AMLODIPINE 10 MG TAB PO SCH (07:38)
[2024-11-29] MEDS: ASPIRIN EC 81 MG TAB PO SCH (07:38)
[2024-11-29] MEDS: FOLIC ACID 1 MG TABLET PO SCH (07:39)
[2024-11-29] MEDS: SERTRALINE HCL 50 MG TAB PO SCH (07:40)
[2024-11-29] MEDS: FINASTERIDE 5 MG TAB PO SCH (07:40)
[2024-11-29] MEDS: PANTOPRAZOLE 40MG TABLET PO SCH (07:40)
[2024-11-29] MEDS: LIDOCAINE 4% PATCH TOP SCH (07:41)
[2024-11-29] MEDS: MAGNESIUM OXIDE 400 MG TAB PO SCH (07:41)
[2024-11-29] MEDS: TRAMADOL HCL 50 MG TAB PO PRN (08:03)
--- NOTE | 2024-11-29 08:50 | HP ---
Date of Admission: 11/28/2024 Chief Complaint: Arm pain. History Of Present Illness: This is a 69-year-old male patient who lives at home with his had roopa doll down almost a week to 10 days before he came to emergency room on 11/23/2024 with altered menta l status and weakness. After he was evaluated at our hospital, he was transferred to [place] at [facility] because CAT scan machine at our hospital was not functional at that time. At outside hospital, he was diagnosed as having fracture of the left humerus and he was treated for t hat and was brought into our inpatient rehab facility yesterday. I saw him this morning. He was lyi ng in bed, not in any distress. Medications: Outpatient medication list reviewed and current medication list reviewed as well. Review of Systems: Musculoskeletal: Left arm pain. 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 All other systems reviewed and negative. Allergies: NO KNOWN ALLERGIES. Past Medical History: Significant for COPD, hypertension, hyperlipidemia, coronary artery disease, b enign prostatic hypertrophy, cervical spondylosis, cervical spinal stenosis, anemia. Past Surgical History: Coronary artery stent placement, March 02, 2016. Family History: Father , had congestive heart failure and systemic lupus erythematosus. Mother , had throat cancer. Brother has coronary artery disease and hypertension. Sister has hypertens ion. Social History: Prior history of smoking, not at present time. He quit smoking, March 02, 2016, and quit using alcohol, January 2023. Physical Examination: Vital Signs: Temperature 97.4, pulse 67, respiratory rate 16, blood pressure 144/74, oxygen saturati on 99% on room air. Height 5 feet 8 inches, weight 156 pounds. General: Awake, alert, oriented, not in distress. HEENT: Head atraumatic, normocephalic. Conjunctivae nonerythematous. Sclerae white. Mouth, no thr ush or edema noted. Ears/Nose, no mass, lesion, discharge noted. Neck: Supple. No JVD, lymph nodes, bruit, thyromegaly noted. Lungs: Bilateral good equal air entry. Clear to auscultation. No rhonchi. No rales. Heart: Normal heart sounds, no murmur or gallop. Abdomen: Soft, bowel sounds normal. No guarding, rigidity, tenderness, mass, hepatosplenomegaly, dis tention, or bruit noted. Extremities: Left upper extremity is in a sling. Movement of left wrist, left hand is normal with n ormal radial pulse. Skin: No rash, ulcer, cellulitis. Lymphatics: No lymph node enlargement in neck, supraclavicular, infraclavicular region. Neuro: No focal neurological deficit. Chest: Unremarkable. External Genitalia: Deferred. Rectal: Deferred. Laboratory Data: WBC 8.5, hemoglobin 9.8, platelets 350. Sodium 138, potassium 4.2, chloride 108, b icarb 26, BUN 21, creatinine 1.01, glucose 104, albumin 2.6. Impression: 1.Left humerus fracture. 2.Anemia. 3.Coronary artery disease. 4.Hypertension. 5.Hyperlipidemia. 6.Chronic obstructive pulmonary disease. 7.Benign prostatic hypertrophy. 8.Cervical spondylosis. 9.Cervical spinal stenosis. Plan: We will go ahead and admit the patient to the hospital to rehab floor for further evaluation a nd management of this problem. Dr. Cardoza from rehab floor will be consulted to manage the patient 's rehab therapy and I will continue to follow up for medical management. For his coronary artery di sease, we will continue his antiplatelet therapy per order and no need for any further intervention. For hypertension, we will continue his antihypertensive medication, monitor blood pressure, and make adjustment on medication as it becomes necessary. For hyperlipidemia, we will continue his statin t herapy and no need for further intervention. For benign prostatic hypertrophy, we will continue his tamsulosin as he takes and no need for any further intervention at this time. Total time spent 80 minutes including review of emergency room visit record from 11/23/2024; review o f history, physical, labs, and other available records from outside hospital; review of last hospital admission record from our hospital from 02/01/2024; and review of last office visit record and perfo ing today's evaluation and management. SCD was ordered for DVT prophylaxis. I will see him tomorr ow for followup. SANDRA/MODL Voice ID: [id number]
[2024-11-30] MEDS: CYANOCOBALAMIN 1000MCG/ML INJ SQ ONE (14:58)
[2024-11-30] MEDS: CARBIDOPA/LEVODOPA 25/100 TAB PO SCH (18:32)
--- NOTE | 2024-11-30 19:23 | PN ---
Date of Progress Note: 11/30/2024 Subjective: The patient was seen this morning for followup. No new complaints or problems reported by the patient. He was lying in bed, not in distress. Denies any new complaints. Physical Examination: Vital Signs: Reviewed. Last vital signs last night, temperature 97.8, pulse 72, respiratory rate 18 , blood pressure 135/63, oxygen saturation 97%. HEENT: Unremarkable. Lungs: Clear to auscultation. Heart: Sounds normal. Abdomen: Soft. Bowel sounds normal. No guarding, rigidity, tenderness, distention. Extremities: No leg edema. Left upper extremity has a sling present. Impression: 1.Left humerus fracture. 2.Hypertension. 3.Hyperlipidemia. Plan: We will go ahead and continue current medication. Continue physical therapy under guidance of Dr. Cardoza and we will see him tomorrow for followup. Continue current antiplatelet therapy per o candice. SANDRA/MODL Voice ID: [id number] Report ID: [id number]
--- NOTE | 2024-11-30 23:59 | PN ---
Date of Progress Note: 11/30/2024 Time Of Service: 1:25 p.m. Subjective: Mr. Kaufman is sitting comfortably, eating lunch. Has no new complaints. Still has the bradykinesia or generalized stiffness associated with Parkinson disease. He has no new complaints. Objective: No fevers or chills. No myalgias or arthralgias. No rash. Laboratory Studies: White blood cell count 8.5, hemoglobin 9.8, platelets 350. Sodium 138, potassiu m 4.2, chloride 108, carbon dioxide 26, BUN 21, creatinine 1.01, glucose 104, calcium 8.5, magnesium 2.3, albumin 2.6, prealbumin 13.1. X-ray/imaging: No new x-rays or imaging. Medications: His Sinemet was adjusted to 25/100 to 3 tablets in the morning, 2 at noon, and 2 in the evening time. He is continuing with cefdinir by Dr. Álvarez. He has Eliquis 2.5 mg twice daily for DV T prophylaxis, Norvasc 10 mg daily, Tylenol Extra Strength 500 mg every 4 hours. He has Lipitor 40 m g daily. He has magnesium oxide 400 mg daily, Namenda 10 mg twice daily, lidocaine patch apply topic ally to the left shoulder where there are some muscle spasms, Senokot-S for constipation, Zoloft for depression, and tramadol for pain. Physical Examination: Vital Signs: Blood pressure 150/70, pulse 72, respiratory rate of 18, temperature 97.2, oxygen satur ation 94%. General: Mr. Aguirre is resting comfortably, in no significant distress, sitting in a ch air. HEENT: He is normocephalic, atraumatic. Sclerae are anicteric. Oropharynx pink, moist. Neck: Supple. Chest: Clear. He does have the generalized bradykinesia with mask face. Progress Made With Physical, Occupational, And Speech Therapy: He completed gait training 5 feet in parallel bars with maximum assistance. Wheelchair mobilization completed 20-25 feet 3 times with max imum assistance, and a total of 75 feet was done. Bed mobility, maximum assistance. Sit to moisture machine tender parallel bars, maximum assistance. With occupational therapy, toileting maximum assistance, showeri ng maximal assistance, upper body dressing had issues there due to pain. Pain was around 4 to 6/10 i n the left upper extremity and a patch was placed once he completed the shower. With speech, long-te rm goals were set to improve cognitive functioning to 50% accuracy. Moderate assistance for daily ac tivities. Assessment: Mr. Aguirre is a 69-year-old patient admitted to the rehabilitation unit with Parkinson disease with dyskinesia and fluctuations. He has decreased mobility, decreased physical functioning, coronary artery disease, benign prostate hypertrophy, GE reflux, hypertension, dysphagia. Plan: We will continue with physical, occupational, and speech therapy 3.5 hours, 5 of 7 days. He h as Dr. Álvarez managing his comorbid conditions. We will continue Tylenol and tramadol for pain, Pepcid for GE reflux, lidocaine patch for left shoulder pain, magnesium oxide for muscle spasms, Namenda fo r dementia, and Toprol for heart rate control, Senokot for constipation, and Zoloft for depression. CHARLENE/LIZBETH Voice ID: [id number] Report ID: [id number]
[2024-12-01] MEDS: CARBIDOPA/LEVODOPA 25/100 TAB PO SCH (07:35)
[2024-12-01] MEDS: CYANOCOBALAMIN 1,000 MCG TAB PO SCH (09:59)
[2024-12-01 15:22] VITALS: BMI 23.7
--- NOTE | 2024-12-01 20:05 | PN ---
Date of Progress Note: 12/01/2024 Subjective: The patient was seen this morning for followup. He was sleeping, easily arousable, not in distress. No new complaints or problems reported. Objective: Vital Signs: Reviewed. HEENT: Unremarkable. Lungs: Clear to auscultation. Heart: Sounds normal. Abdomen: Soft. Bowel sounds normal. No guarding, rigidity, tenderness, distention. Extremities: No leg edema. Impression: 1.Fracture, left humerus. 2.Hypertension. 3.Hyperlipidemia. Plan: We will go ahead and continue current pain medication. Continue physical therapy under maggie ce of Dr. Cardoza. We will continue his blood pressure and cholesterol medications and I will see h im tomorrow for followup. SANDRA/MODL Voice ID: [id number] Report ID: [id number]
--- NOTE | 2024-12-01 23:56 | PN ---
Subjective: Mr. Aguirre is more sedated, especially in the morning, has more confusion and his Parki nson's medication was adjusted from in the morning time 3 of the 25/100 at awakening, 2 at noon, and 2 in the evening. Otherwise, the patient is smiling and still very slow with generalized mobility, e xhibiting bradykinesia with mask-like face. Objective: No reported fevers, chills, nausea, vomiting. He has generalized slowness of movements. Physical Examination: Vital Signs: Blood pressure is 135/71, pulse 68, respiratory rate 18, temperature 98, oxygen saturat ion 94%. General: Mr. Aguirre is sitting in a chair, finished his lunch. HEENT: He is normocephalic, atraumatic. Sclerae anicteric. Oropharynx pink and moist. Does have m ask-like face. Musculoskeletal: Decreased mobility with bradykinesia. No significant resting tremor appreciated. Laboratory Studies: No new laboratory studies. X-ray/imaging: No new x-rays or imaging. Medications: Medications have been reviewed. He of course has had a change noted. He is completing cefdinir 300 mg twice daily from 11/28 to 12/02. Does have, for energy, now added 1000 mcg oral B12 daily. As noted, his carbidopa/levodopa has been adjusted such that he takes now 3 tablets of the 2 5/100 in the morning, and then 2 around noon, and 2 in the afternoon. Otherwise, Lipitor 40 mg at be dtime for dyslipidemia, aspirin 81 mg daily for stroke risk reduction, Eliquis 2.5 mg twice daily for DVT risk reduction, Norvasc 10 mg daily for managing hypertension, Toprol 50 mg at bedtime for his b lood pressure and heart rate control, sertraline for depression, Flomax for prostate hypertrophy, tra madol for managing his pain. Progress Made With Physical, Occupational, And Speech Therapy: With physical therapy today, he did m obilize a wheelchair 50 feet and 5 feet with moderate assistance, cuing needed. Completed stair jaci gement. He did go up 3 steps with right handrails, moderate assistance required. He did have some d ifficulty with left hip and trunk flexion leading to him falling backwards with retropulsion. He was able to ambulate 2 to 3 feet with maximum assistance, shuffling gait, could not turn without assista nce. Completed supine to sit transfers with maximum assistance. Turning in bed with moderate assist ance. With his occupational therapy, maximal assistance for toileting, for cleaning buttocks area, a nd toileting management. He did tolerate using 2-pound wrist weight in the upper extremities with bi ceps curls, chest press, overhead press, then followed by active assistance required on the left elbo w flexion/extension, and wrist range of motion/movements for 20 repetitions each. Regarding speech, he had sustained attention to a structured task for 45 seconds prior to the cues to redirect. Simple yes/no questions answered with 80% accuracy. Temporal orientation concepts noted with 100% accuracy . Spatial concepts, he exhibited 50% accuracy. 3/5 unrelated pictures were recalled after 30 second s and 5/5 with moderate cues were then recalled. Assessment: Mr. Aguirre is a 69-year-old patient in the rehabilitation unit, had Parkinson disease w ith dyskinesia and fluctuations. He has decreased mobility, decreased physical functioning, moderate pain, prostate hypertrophy, gastroesophageal reflux, constipation, dementia, anemia, some malnutriti on, dyslipidemia, and hypertension. Of course, his Parkinson disease is present and urinary tract in fection, treated with cefdinir. He is followed by Dr. Álvarez, his primary care physician. Plan: Continue physical, occupational, and speech therapy. Continue comorbid condition management w ith medications as noted. He is followed by Dr. Álvarez, his primary care physician. Plan again is aft er discharge to continue therapy. At this point, it is very difficult for him to manage his activiti es at home and his has some difficulty being able to assist him as well, and he may require skil led nursing prior to being discharged home. LB/MODL Voice ID: [id number] Report ID: [id number]
--- NOTE | 2024-12-02 21:19 | PN ---
Date of Progress Note: 12/02/2024 Subjective: The patient was seen this morning for followup. He was sleeping, easily arousable, not in any distress. Denies any new complaints. Objective: Vital Signs: Reviewed. HEENT: Unremarkable. Lungs: Clear to auscultation. Heart: Sounds normal. Abdomen: Soft. Bowel sounds normal. No guarding, rigidity, tenderness, distention. Extremities: No leg edema. Impression: 1.Left humerus fracture. 2.Hypertension. 3.Hyperlipidemia. 4.Coronary artery disease. Plan: We will go ahead and continue current antiplatelet therapy. Continue current antihypertensive and statin therapy. Physical therapy to be provided under guidance of Dr. Cardoza. I will see him tomorrow for followup. SANDRA/MODL Voice ID: [id number] Report ID: [id number]
--- NOTE | 2024-12-03 01:07 | PN ---
Date of Progress Note: 12/02/2024 Time Of Service: 1:35 p.m. Subjective: Mr. gAuirre is sitting in a chair, very alert, interactive, says he is doing well. Good facial expression. No significant masklike face noted and no obvious tremor and his movements are f luent. Review of Systems: No fevers, chills, nausea, vomiting. No myalgias, arthralgias. Physical Examination: Vital Signs: Blood pressure 142/73, pulse 68, respiratory rate 18, temperature 98.1, oxygen saturati on 92%. General: Mr. Aguirre in the sitting, finishing his lunch. HEENT: He appears normocephalic, atraumatic. Sclerae anicteric. Oropharynx moist. Neck: Supple. Chest: Clear. Neuro: No obvious tremor or bradykinesia noted. He has no focal deficits. Laboratory Studies: No new laboratory studies. X-ray/imaging: No new x-rays or imaging. Medications: Medications have been reviewed. He has had no new changes to his medications. Progress Made With Physical, Occupational, And Speech Therapy: With physical therapy, did wheelchair mobilization covering 100 feet twice, did have cues required to stay on board. Also, he ambulated w ith a quad cane 15 feet and 10 feet with maximum assistance. He goes up and down 2 steps with maximu m assistance. Family is in the room and they help. Myb-fk-spfkr transfers done with moderate assist ance. With occupational therapy, minimum assistance for bed mobilization. Supervision for edge of b ed, scooting, and repositioning in bed. Wheelchair to toilet transfer via stand pivot technique done with minimum assistance. He did multiple cmv-iz-fubla activities during perianal care, wiping his b uttocks and for clothing management. With speech, he was oriented to temporal and spatial concepts with 77% accuracy. Sustained attention to a letter cancellation task completed with 100% accuracy over 3 minutes and 25 seconds without cue s. Assessment: Mr. Aguirre is a 69-year-old patient in the rehabilitation unit with Parkinson's, dyskin esia, and fluctuations, who is doing very well with his physical, occupational, and speech therapy. He still has decreased mobility, decreased physical functioning, hypertension, dyslipidemia, dementia , depression, prostate hypertrophy, and muscle spasms and pain, which have improved. Plan: We will continue with physical, occupational, and speech therapy 3.5 hours, 5 of 7 days. We w ill continue with comorbid condition medications, which have been noted. Dr. Álvarez, primary care phys [facility], is following him and managing his comorbid conditions. CHARLENE/LIZBETH Voice ID: [id number] Report ID: [id number]
[2024-12-03 05:09] LABS: Absolute Basophils 0.1 K/uL (0-0.5); Absolute Eosinophils 0.3 K/uL (0-0.5); Absolute Lymphocytes (CBC) 2.4 K/uL (0.7-4.9); Absolute Monocytes 0.6 K/uL (0.1-1.3); Absolute Neutrophil 4.9 K/uL (1.8-8.0); Eosinophils % 3.7 % (0-4.4); Hematocrit 29.3 % (39.6-49.0); Hemoglobin 9.7 g/dL (13.6-17.9); Lymphocytes % 29.1 % (15.3-44.8); MCH 27.1 pg (27.0-35.0); MCHC 33.2 g/dL (32.0-36.0); MCV 81.5 fL (80-100); MPV 8.6 fL (7.6-11.3); Monocytes % 7.8 % (3.3-12.3); Neutrophils % 58.4 % (41.7-73.7); Platelets 388 thou/uL (152-406); Red Cell Distribution Width 15.9 % (12.1-15.2)
[2024-12-03 05:35] LABS: Albumin 2.8 g/dL (3.4-5.0); Anion Gap 6.4 mEq/L (5.0-15.0); Magnesium 2.3 mg/dL (1.6-2.4); Potassium 4.4 mEq/L (3.5-5.1); Prealbumin 18.4 mg/dL (20-40)
[2024-12-03] MEDS: NA CHLORIDE 0.9% 1,000 ML IV SCH (12:42)
--- NOTE | 2024-12-03 20:53 | PN ---
Date of Progress Note: 12/03/2024 Subjective: The patient was seen this morning for followup. No new complaints or problems reported. Lying in bed, not in any distress. Objective: Vital Signs: Reviewed. HEENT: Unremarkable. Lungs: Clear to auscultation. Heart: Sounds normal. Abdomen: Soft. Bowel sounds normal. No guarding, rigidity, tenderness, or distention. Extremities: No leg edema. Laboratory Data: WBC 8.4, hemoglobin 9.7, platelets 388. Sodium 136, potassium 4.4, chloride 107, b icarb 27, BUN 33, creatinine 1.21, glucose 99. Impression: 1.Left humerus fracture. 2.Hypertension. 3.Coronary artery disease. 4.Hyperlipidemia. 5.Anemia. 6.Near syncope. Plan: Continue current medication. Continue physical therapy under guidance of Dr. Cardoza. After I saw the patient during morning time, the patient was sitting in the wheelchair and all of a sudden he had fainting type of episode. He was brought back to bed right away as his systolic blood pressu re was low in range of 70 or so, and soon after he was placed back in the bed, he started to improve very well. This happened within couple of hours or so after he received morning dose of amlodipine, so when nurse contacted me with all this information, it was instructed to go ahead and discontinue h is amlodipine and we will monitor his blood pressure; if necessary, consider further intervention. I wi ll see him tomorrow for followup. SANDRA/MODL Voice ID: [id number] Report ID: [id number]
--- NOTE | 2024-12-03 22:53 | PN ---
Date of Progress Note: 12/03/2024 Time Of Service: 1:35 p.m. Subjective: Mr. Aguirre is lying in his bed. He is very happy, smiling, very interactive. No evide nce of any masklike face and generalized stiffness. Due to his Parkinson's, he is very , d oing very well. Review of Systems: No fevers, chills, nausea, vomiting. No significant myalgias, arthralgias, rash. Physical Examination: Vital Signs: Blood pressure 108/60 and pulse of 60. It is noted that earlier today he did have sign ificant drop in blood pressure to 79/51 and pulse of 80. He did have normal saline added. In additi on, MARGARET hose, abdominal binder, and midodrine. The drop in blood pressure is likely secondary to the autonomic dysfunction related to Parkinson disease. In addition, worsened by dehydration. HEENT: Otherwise in terms of exam, he is normocephalic, atraumatic. Sclerae anicteric. Oropharynx pink, moist. Neck: Supple. Chest: Clear. Laboratory Studies: White blood cell count 8.3, hemoglobin 9.7, platelets 388. Sodium 136, potassiu m 4.4, chloride 107, carbon dioxide 27, BUN 33, creatinine 1.21. The BUN increased from 21 to 33 and creatinine increased from 1.01 to 1.21 consistent with mild dehydration. Prealbumin did improve fro m 30.1 to 80.4 and albumin from 2.6 to 2.8. Magnesium 2.3 and calcium 8.5. Glucose good at 99. X-ray/imaging: No new x-rays or imaging. Medications: As noted, medications were adjusted. He has on board midodrine 5 mg in the morning to help support blood pressure. He is having 1 L of sodium chloride at 75 cc an hour. Other medication s are unchanged. Progress Made With Physical, Occupational, And Speech Therapy: Today with physical therapy, he was a mbulated. He did work with the compression socks and was able to do with moderate assistance there. Bed mobility minimum to contact guard assistance. Again, there was drop in blood pressure when he w as going from his lying to sitting to standing positions. During seated exercise, he was 98/54, puls e of 67; after wheelchair exercise, 85/52, pulse of 75; on edge of bed transfer, 91/50, pulse of 76; while supine 121/60, pulse of 61. With his occupational therapy, minimum assistance for bed mobilization and supine to edge of bed, sco oting and repositioning in bed. ADLs, focus on upper body dressing while maintaining nonweightbearin g precautions with his left arm where he does have a fracture. With speech, he was very pleasant, wa tching TV and worked well with the therapist. He was able to maintain sustained attention to a given task for 5 minutes with moderate assistance. Could answer simple questions, says yes and no with 10 0% accuracy and independently. Temporal and spatial orientation skills with 70% accuracy and moderat e assistance. Recalled 2 of 2 unrelated times after 15 seconds. Assessment: Mr. Aguirre is a 69-year-old patient in rehabilitation unit with Parkinson's. He has au tonomic dysfunction related to Parkinson disease, some mild dehydration, decreased mobility, decrease d physical functioning. He does have pain from the left arm fracture. Does have dyslipidemia and ri sk of deep vein thrombosis. Plan: We will have physical, occupational, and speech therapy continue 3-1/2 hours, 5 of 7 days. We will continue with his comorbid condition medications to address his orthostatic hypotension with mi dodrine and fluid status with some IV hydration. Continue Lipitor for dyslipidemia. Parkinson disea se addressed and continue with Sinemet as noted, B12 to help with reduction of red blood cells. He d oes have Proscar for urinary retention, Namenda for dementia, Protonix for GE reflux, and again Floma x for urinary retention, tramadol for pain. He is managed by Dr. Álvarez for his comorbid conditions. LB/MODL Voice ID: [id number] Report ID: [id number]
[2024-12-04] MEDS: MIDODRINE HCL 5 MG TABLET PO SCH (06:57)
[2024-12-04] MEDS: NA CHLORIDE 0.9% 1,000 ML IV SCH (12:18)
--- NOTE | 2024-12-04 13:38 | P.RH.PN ---
Estimated Length of Stay: 16 Expected Discharge Date: 12/14/24 Discharge Disposition Plan: Home Family Support: Yes Prison Goal: Mobility, Transfers, Self Care Vital Signs: Last Vital Signs Temp 97.4 F 12/04/24 08:00 Pulse 63 12/04/24 08:00 Resp 12 12/04/24 08:00 BP 151/72 H 12/04/24 08:00 Pulse Ox 98 12/04/24 08:00 Laboratory: Laboratory Last Values WBC 8.40 thou/uL (4.3-10.9) 12/03/24 04:48 RBC 3.60 M/uL (4.33-5.43) L 12/03/24 04:48 Hgb 9.7 g/dL (13.6-17.9) L 12/03/24 04:48 Hct 29.3 % (39.6-49.0) L 12/03/24 04:48 MCV 81.5 fL (80-100) 12/03/24 04:48 MCH 27.1 pg (27.0-35.0) 12/03/24 04:48 MCHC 33.2 g/dL (32.0-36.0) 12/03/24 04:48 RDW 15.9 % (12.1-15.2) H 12/03/24 04:48 Plt Count 388 thou/uL (152-406) 12/03/24 04:48 MPV 8.6 fL (7.6-11.3) 12/03/24 04:48 Neutrophils % 58.4 % (41.7-73.7) 12/03/24 04:48 Lymphocytes % 29.1 % (15.3-44.8) 12/03/24 04:48 Monocytes % 7.8 % (3.3-12.3) 12/03/24 04:48 Eosinophils % 3.7 % (0-4.4) 12/03/24 04:48 Basophils % 1.0 % (0-1.3) 12/03/24 04:48 Absolute Neutrophils 4.9 K/uL (1.8-8.0) 12/03/24 04:48 Absolute Lymphocytes 2.4 K/uL (0.7-4.9) 12/03/24 04:48 Absolute Monocytes 0.6 K/uL (0.1-1.3) 12/03/24 04:48 Absolute Eosinophils 0.3 K/uL (0-0.5) 12/03/24 04:48 Absolute Basophils 0.1 K/uL (0-0.5) 12/03/24 04:48 Sodium 136 mEq/L (136-145) 12/03/24 04:48 Potassium 4.4 mEq/L (3.5-5.1) 12/03/24 04:48 Chloride 107 mEq/L (98-107) 12/03/24 04:48 Carbon Dioxide 27 mEq/L (21-32) 12/03/24 04:48 Anion Gap 6.4 mEq/L (5.0-15.0) 12/03/24 04:48 BUN 33 mg/dL (7-18) H 12/03/24 04:48 Creatinine 1.21 mg/dL (0.70-1.30) 12/03/24 04:48 Est GFR (CKD-EPI) 64 ml/min (=/>90) L 12/03/24 04:48 Glucose 99 mg/dL (74-106) 12/03/24 04:48 Calcium 8.5 mg/dL (8.5-10.1) 12/03/24 04:48 Magnesium 2.3 mg/dL (1.6-2.4) 12/03/24 04:48 Albumin 2.8 g/dL (3.4-5.0) L 12/03/24 04:48 Prealbumin 18.4 mg/dL (20-40) L 12/03/24 04:48 Weight: 156 lb Wound Present: No Closed Surgical Incision Present: No Negative Pressure Wound Therapy Present: No Physician Update: Met 3/4 STG. His blood pressures are dropping due to orthostatic hypotension. He has difficulty problem sovling. 6/7 STG and /6 LTG. Able to put on footware. Mod assist with upper and lower body dressing. Labs reviewed and are stable. Summary: Patient's care plan and terminologist goals have been reviewed and revised as necessary. Please see the Rehabilitation Signature page for all necessary signatures.
--- NOTE | 2024-12-04 15:29 | PN ---
Date of Progress Note: 12/04/2024 Subjective: The patient was seen this morning for followup. No new complaints, problems reported by the patient. He was lying in bed, not in distress. Objective: Vital Signs: Reviewed. HEENT: Unremarkable. Lungs: Clear to auscultation. Heart: Sounds normal. Abdomen: Soft. Bowel sounds normal. No guarding, rigidity, tenderness, distention. Extremities: No leg edema. Impression: 1.Left humerus fracture. 2.Hypertension. 3.Coronary artery disease. 4.Hyperlipidemia. Plan: We will go ahead and continue current medication. Continue physical therapy under guidance of Dr. Cardoza. Yesterday, we decided to discontinue his amlodipine because of drop in blood pressure and we will continue to monitor blood pressure if necessary. Make adjustment on medication. I will see him tomorrow for followup. SANDRA/MODL Voice ID: [id number] Report ID: [id number]
[2024-12-05 05:14] LABS: Specific Gravity 1.008 (1.005-1.030); Sqamous Epithelial None Seen /HPF (None Seen); Urine Bacteria <20 /HPF (<20); Urine Bilirubin NEGATIVE (Negative); Urine Blood Negative (Negative); Urine Clarity Clear (Clear); Urine Color Colorless (Yellow); Urine Culture Reflex Order NOT NEEDED; Urine Glucose NEGATIVE (Negative); Urine Ketones NEGATIVE (Negative); Urine Micro Reflex YN NO BILL MICROSCOPIC; Urine Nitrite NEGATIVE (Negative); Urine Protein NEGATIVE (Negative); Urine RBC <5 /HPF (None Seen); Urine Urobilinogen Normal (Normal); Urine WBC <5 /HPF (<5)
[2024-12-05] MEDS: MIDODRINE HCL 5 MG TABLET PO SCH ×2 (10:11→12:22)
--- NOTE | 2024-12-05 14:47 | PN ---
Date of Progress Note: 12/05/2024 Subjective: Patient was seen this morning for followup. No new complaints or problems reported by julia bunn. Lying in bed, not in any distress. Objective: Vital Signs: Reviewed. HEENT: Unremarkable. Lungs: Clear to auscultation. Heart: Sounds normal. Abdomen: Soft. Bowel sounds normal. No guarding, rigidity, tenderness, distention. Extremities: No leg edema. Impression: 1.Fracture, left humerus. 2.Hypertension. 3.Coronary artery disease. 4.Hyperlipidemia. Plan: Continue current medications. Continue current antihypertensive medications, statin therapy, antiplatelet therapy. Continue physical therapy under guidance of Dr. Cardoza and I will see him to [facility] for followup. Blood pressure readings reviewed. Amlodipine was discontinued 2-3 days ago bec ause of a drop in the blood pressure, and we will continue metoprolol as he is taking. If necessary, consider further intervention. SANDRA/MODL Voice ID: [id number] Report ID: [id number]
--- NOTE | 2024-12-06 14:14 | PN ---
Date of Progress Note: 12/06/2024 Subjective: Patient was seen this morning for followup. No new complaints or problems reported. He was sleeping. Subsequently, he did wake up later on when family was with him. When I saw him, he w as lying in bed, not in any distress. Objective: Vital Signs: Reviewed. HEENT: Unremarkable. Lungs: Clear to auscultation. Heart: Sounds normal. Abdomen: Soft. Bowel sounds normal. No guarding, rigidity, tenderness, distention. Extremities: No leg edema. Impression: 1.Left humerus fracture. 2.Hypertension. 3.Coronary artery disease. 4.Hyperlipidemia. Plan: Continue current medications. Continue current antihypertensive medication which is metoprolo l. Blood pressure is stable. The patient has not had any low blood pressure readings. Continue sta tin therapy and I will see him tomorrow for followup. Details regarding drop in the blood pressure a nd decision to discontinue amlodipine 3-4 days ago was discussed with the patient's today. SANDRA/MODL Voice ID: [id number] Report ID: [id number]
[2024-12-06] MEDS: DOCUSATE NA/SENNA CONC 1 TAB PO SCH (20:19)
--- NOTE | 2024-12-07 12:50 | PN ---
Date of Progress Note: 12/07/2024 Subjective: The patient was seen this morning for followup. No new complaints or problems reported by the patient. He was lying in bed, not in distress. Denies any new complaints. Objective: Vital Signs: Reviewed. HEENT: Unremarkable. Lungs: Clear to auscultation. Heart: Sounds normal. Abdomen: Soft. Bowel sounds normal. No guarding, rigidity, tenderness, distention. Extremities: No leg edema. Impression: 1.Left humerus fracture. 2.Hypertension. 3.Coronary artery disease. 4.Hyperlipidemia. Plan: We will go ahead and continue current medications. Continue physical therapy under guidance o roopa Cardoza. Monitor blood pressure. If necessary, make adjustment on antihypertensive medicatio n. His amlodipine was discontinued few days ago. Blood pressure is stable at this time and we will continue metoprolol. SANDRA/MODL Voice ID: [id number] Report ID: [id number]
--- NOTE | 2024-12-07 21:23 | PN ---
Date of Progress Note: 12/07/2024 Time Of Service: 1:25 p.m. Subjective: Mr. Aguirre was resting in bed. at bedside. He had a good workout today and was s omewhat sleepy, but was very happy so far with therapy, more expressive, ability to move arms and leg s much easier. Review of Systems: There are no reported fevers, chills, nausea, vomiting, myalgias, arthralgias. No other complaints. Physical Examination: Vital Signs: Blood pressure 115/63, pulse of 81, respiratory rate 17, temperature 97.7, oxygen satur ation 96%. HEENT: Again, Mr. Aguirre is normocephalic, atraumatic. Sclerae anicteric. Oropharynx pink and roverto st. Neck: Supple. Chest: Clear. Neuro: There are no focal deficits. Does have some mild mass. There is mild bradykinesia. Otherwi se, no new or focal deficits. Laboratory Studies: No new laboratory studies. X-ray/imaging: No new x-rays or imaging. Medications: Medications have been reviewed and are unchanged. Progress Made With Physical, Occupational, And Speech Therapy: Today with his speech, he was attempt ed to work with speech therapist today on sustained attention, answering yes and no questions, but he was too tired and sleepy throughout the session. He did, however, work on the variety of activities to maintain his current cognitive skills, which she noted he was doing at home, but he apparently wa s very exhausted from the morning's therapy session. In terms of his physical therapy, he did work o n npsztz-fh-uyd transfers with minimum assistance. Bed mobility with contact guard to minimum assist ance. Multiple zzv-ct-evkpt transfers with maximum assistance required. With occupational therapy, he was able to perform bed mobilization. He actually wanted to stay in bed, did not complain of any significant pain, it is noted he is nonweightbearing with left upper extremity where he has a fractur e and he did do minimal work today with the therapist. Assessment: Mr. Aguirre is a 69-year-old patient in the rehabilitation unit with Parkinson's disease . He has decreased mobility, decreased physical functioning, left arm fracture, dyslipidemia, dehydr ation, decreased mobility and decreased physical functioning, and autonomic dysfunction with orthosta tic hypotension. Plan: He is now continuing his physical, occupational, and speech therapy 3.5 hours, 5 of 7 days. H is comorbid condition medications are managed by Dr. Álvarez, his primary care physician. He essentiall y continues with tramadol for pain, Flomax for urinary retention, Zoloft for depression, Senokot for constipation, Protonix for GE reflux, midodrine added for his pressure support, Toprol for heart rate control, Namenda for dementia, magnesium oxide for muscle spasms, lidocaine patch applied for his pr uritic areas, folic acid on board. He has Pepcid for GE reflux, of course Sinemet for Parkinson's di sease, Lipitor for dyslipidemia, aspirin for stroke risk reduction, Eliquis for DVT prophylaxis, and he has continued therapy as noted. CHARLENE/LIZBETH Voice ID: [id number] Report ID: [id number]
[2024-12-08] MEDS ORDERED: BISACODYL 10 MG RECTAL SUPP ONE (04:15)
[2024-12-08] MEDS: BISACODYL 10 MG RECTAL SUPP PR PRN (04:26)
--- NOTE | 2024-12-08 18:43 | PN ---
Date of Progress Note: 12/08/2024 Subjective: The patient was seen this afternoon for followup. He was sitting in wheelchair. His wi fe was with him at bedside. No new complaints or problems reported. Objective: Vital Signs: Reviewed. HEENT: Unremarkable. Lungs: Clear to auscultation. Heart: Sounds normal. Abdomen: Soft. Bowel sounds normal. No guarding, rigidity, tenderness, distention. Extremities: No leg edema. Impression: 1.Left humerus fracture. 2.Hypertension. 3.Coronary artery disease. 4.Hyperlipidemia. Plan: Continue current medication. Continue physical therapy per guidance of Dr. Cardoza. wa s present in the room. I informed her that the patient should follow up with his orthopedic speciali st, Dr. Hagen, within couple of weeks after he gets discharged from rehab floor this week, which will happen on Saturday and I would like to see him next week on at office. will call to pam bee this followup appointment. I will see him tomorrow for followup. SANDRA/MODL Voice ID: [id number] Report ID: [id number]
--- NOTE | 2024-12-09 21:13 | PN ---
Date of Progress Note: 12/09/2024 Subjective: The patient was seen this morning for followup. No new complaints or problems reported by the patient. He was lying in bed, not in distress. Denies any chest pain, shortness of breath, a bdominal pain, nausea, vomiting. Objective: Vital Signs: Reviewed. HEENT: Unremarkable. Lungs: Clear to auscultation. Heart: Sounds normal. Abdomen: Soft. Bowel sounds normal. No guarding, rigidity, tenderness, distention. Extremities: No leg edema. Impression: 1.Left humerus fracture. 2.Hypertension. 3.Coronary artery disease. 4.Hyperlipidemia. Plan: Next we will go ahead and continue current medication. Continue physical therapy under maggie anderson of Dr. Cardoza and we will continue current antihypertensive medication. I will see him tomorrow for followup. Blood work was ordered to be done tomorrow. SANDRA/MODL Voice ID: [id number] Report ID: [id number]
--- NOTE | 2024-12-09 21:47 | PN ---
Date of Progress Note: 12/09/2024 Time Of Service: 1:30 p.m. Subjective: Mr. Aguirre is sitting in his chair beside bed. is at the bedside. He is very hap py with his therapy so far. Left arm, which is in a sling after fracture. He says no significant pa in is there. He is able to mobilize in an improved fashion and feeling much better about his therapy so far. Otherwise, no new complaints. Review of Systems: Denies any fevers, chills, nausea, vomiting. No myalgias, arthralgias. No psychiatric complaints. Physical Examination: Vital Signs: Blood pressure is 132/73, pulse of 66, respiratory rate is 16, temperature 97.8, oxygen saturation 98%. General: Mr. Aguirre is sitting in a chair beside bed. HEENT: He appears normocephalic, atraumatic. Sclerae anicteric. Oropharynx moist. Neck: Supple. Chest: Clear. Extremities: No significant edema, cyanosis. Heart: No significant bradycardia. Neuro: His face does not show any mask-like appearance. He has more fluent movements, but still maribel e difficulty initiating movements. For instance, while the patient is in the gym holding the dumbbel ls, he had some difficulty releasing the dumbbell of the right hand and the therapist was trying to r etrieve it. Laboratory Studies: No new laboratory studies. X-ray/imaging: No new x-rays or imaging. Medications: His medications have been reviewed and are continued unchanged. Progress Made With Physical, Occupational, And Speech Therapy: Today with physical therapy, performe d multiple yih-et-uyhrp transfers with contact guard assistance using a rolling walker. Also, repeat ed xwr-rc-hmwjv transfers again with contact guard assistance. Ambulated 60 feet with minimal assist ance using a rolling walker. He was able to go up and down 5 stairs twice with contact guard assista nce and right side handrails. With occupational therapy, needed partial assistance for supine to edg e of bed and to keep the head of bed elevated as well. I did some repetitions 20 times x3 of the ___ to improve strength. With speech, maximum cues needed for all tasks. He is oriented to temp oral concepts with 50% accuracy and spatial concepts also with 50% accuracy. He was able to focus sh ort term and recall 3 pictures and presented with a memory strategies and recall 1/3 items after 3 mi nutes. Assessment And Plan: Mr. Aguirre is a 69-year-old patient in the rehabilitation unit with Parkinson' s, dyskinesia, and fluctuations who is making good progress overall with his recovery and improvement . He still has decreased mobility decreased physical functioning, has orthostatic hypotension addres sed with midodrine, tramadol for pain, Flomax for urinary retention, Zoloft for depression, Senokot f or constipation, Protonix for GE reflux, midodrine for pressure support, Namenda for his cognitive im pairment. Has Proscar as well for his urinary retention, Sinemet 25/100 for his Parkinson disease, a nd Eliquis for DVT prophylaxis, aspirin for stroke risk reduction, Lipitor for dyslipidemia, and Tyle nol Extra Strength for pain. He will continue in terms plan with physical, occupational, and speech therapy 3.5 hours, 5 of 7 days. We will continue with comorbid condition management as noted. Dr. Wilmer reyes primary care physician, is managing patient's comorbid condition on a daily basis. CHARLENE/LIZBETH Voice ID: [id number] Report ID: [id number]
[2024-12-10 06:19] LABS: Absolute Basophils 0.1 K/uL (0-0.5); Absolute Eosinophils 0.2 K/uL (0-0.5); Absolute Lymphocytes (CBC) 2.4 K/uL (0.7-4.9); Absolute Monocytes 0.6 K/uL (0.1-1.3); Absolute Neutrophil 5.5 K/uL (1.8-8.0); Basophils % 1.3 % (0-1.3); Eosinophils % 2.3 % (0-4.4); Hematocrit 29.2 % (39.6-49.0); Hemoglobin 9.8 g/dL (13.6-17.9); Lymphocytes % 27.3 % (15.3-44.8); MCH 27.3 pg (27.0-35.0); MCHC 33.5 g/dL (32.0-36.0); MCV 81.7 fL (80-100); MPV 8.5 fL (7.6-11.3); Monocytes % 7.2 % (3.3-12.3); Neutrophils % 61.9 % (41.7-73.7); Platelets 373 thou/uL (152-406); RBC Red Blood Cell Count 3.58 M/uL (4.33-5.43); Red Cell Distribution Width 16.3 % (12.1-15.2)
[2024-12-10 06:35] LABS: AST/SGOT 12 U/L (15-37); Albumin/Globulin Ratio 0.8 (1.1-1.8); Alkaline Phosphatase 236 U/L (45-117); Anion Gap 8.7 mEq/L (5.0-15.0); BUN Blood Urea Nitrogen 33 mg/dL (7-18); Bicarbonate 27 mEq/L (21-32); Bilirubin Total 0.4 mg/dL (0.2-1.0); Globulin 3.8 g/dL (2.3-3.5); Glomerular Filtration Rate 52 ml/min (=/>90); Glucose Level 108 mg/dL (74-106); Magnesium 2.2 mg/dL (1.6-2.4); Potassium 4.7 mEq/L (3.5-5.1); Prealbumin 21.7 mg/dL (20-40); Protein, Total 6.8 g/dL (6.4-8.2); Sodium Level 137 mEq/L (136-145)
[2024-12-10 06:36] LABS: ALT/SGPT < 14 U/L (16-61)
--- NOTE | 2024-12-10 21:26 | PN ---
Date of Progress Note: 12/10/2024 Subjective: The patient was seen this morning for followup. He was lying in bed. Not in any distre ss. Denies any new complaints. Objective: Vital Signs: Reviewed. HEENT: Unremarkable. Lungs: Clear to auscultation. Heart: Sounds normal. Abdomen: Soft. Bowel sounds normal. No guarding, rigidity, tenderness, distention. Extremities: No leg edema. Laboratory Data: WBC 8.9, hemoglobin 9.8, platelets 373. Sodium 137, potassium 4.7, chloride 106, b icarb 27, BUN 33, creatinine 1.44, glucose 108. Impression: 1.Left humerus fracture. 2.Volume depletion. 3.Hypertension. 4.Coronary artery disease. Plan: The patient will be encouraged to drink about 16 ounce of water a day. Continue current antih ypertensive medication and cholesterol medication. Continue physical therapy under guidance of Dr. Kirill durán. I will see him tomorrow for followup. SANDRA/MODL Voice ID: [id number] Report ID: [id number]
--- NOTE | 2024-12-11 00:41 | PN ---
Date of Progress Note: 12/10/2024 Time Of Service: 1:35 p.m. Subjective: Mr. Aguirre again today also doing very well, very happy with his therapy, smiling, and still having some issues with impaired relaxation, but that is better and left arm in a sling, where he is nonweightbearing and no issues there. Review of Systems: No myalgias, arthralgias, rash, complaints; otherwise, are negative. Physical Examination: Vital Signs: Blood pressure is 140/75, pulse of 58, respiratory rate 18, temperature 97.1, oxygen sa turation 98%. General: Mr. Aguirre is doing well. Good facial expression. HEENT: He is normocephalic, atraumatic. Sclerae are anicteric. Extremities: No obvious tremors in upper and lower extremities. Does have movement. Laboratory Studies: White blood cell count 8.9, hemoglobin 9.8, platelets 373. Sodium 137, potassiu m 4.7, chloride 106, carbon dioxide 27, BUN 33, creatinine 1.44, which is an increase from originally 1.01 on the to 1.21 on the 16th, and now 1.44. The patient had become somewhat dehydrated. Ca lcium 8.2, magnesium 2.2. AST 12, ALT less than 14, alkaline phosphatase 236, serum protein 6.8, alb umin is 3.0, and a prealbumin 21.7. X-ray/imaging: No new x-rays or imaging. Medications: Medications have been reviewed and are unchanged. He is managed again by Dr. Álvarez for comorbid conditions. Progress Made With Physical, Occupational And Speech Therapy: With physical therapy today, he did rolon pine to sit transfers independently, did perform rolling ealc-bj-trzpp and mylix-eh-rrfj independentl y, sit to supine done with standby assistance and verbal cues. He did ambulate 60 feet with contact guard assistance using a rolling walker, was up and down 5 steps with contact guard assistance with b ilateral handrails. With occupational therapy, he did a shower and did toilet transfers with standby assistance using grab bars. Perform shower with supervision. Needed supervision for upper body ezekiel ssing in extended time 1 hand dressing still requires minimal assistance with lower body d ressing and toileting due to impaired balance and control of his lower extremities. With speech, he scored a 13/15 on a BIMS, but a 7/30 on the SLUMS score, which indicates some progress, but still con tinues to have significant cognitive deficits and it is recommended the patient continue with speech after his discharge. Assessment And Plan: Mr. Agurire is a 69-year-old patient in the rehabilitation unit with Parkinson disease with fluctuation, dyskinesia. He has decreased mobility, decreased physical functioning. In addition to a left arm fracture in a sling, treated with tramadol and Tylenol along with magnesium. He does have Zoloft for his mood stabilization, Flomax for prostate hypertrophy, Senokot for constip ation. He has some autonomic dysfunction, treated with midodrine, Toprol for heart rate control, Nam enda for memory loss, lidocaine patch apply to the left arm where fracture is in place. He has vitam in B12 for energy and for Parkinson disease he has the carbidopa-levodopa, taking 3 in the morning, 2 at noon, and 2 around 5 p.m., Lipitor 40 mg at night for dyslipidemia, aspirin 81 mg daily for strok e risk reduction. In terms of rest of his plan, he we will continue with physical, occupational, and speech therapy 3.5 hours, 5/7 days and will continue managing his medications as per Dr. Álvarez. CHARLENE/LIZBETH Voice ID: [id number] Report ID: [id number]
[2024-12-11 10:41] VITALS: BP 131/70; TEMP 97.8
--- NOTE | 2024-12-11 20:19 | DS ---
Date of Discharge: 12/11/2024 Disposition: Discharged to go home. Physical Examination: HEENT: Unremarkable. Lungs: Clear to auscultation. Heart: Sounds normal. Abdomen: Soft. Bowel sounds normal. No guarding, rigidity, tenderness, distention. Extremities: No leg edema. Discharge Medications And Instructions: 1.Continue all prior home medications except stop amlodipine and start midodrine 10 mg 2 times a day . 2.Follow up at my office next week on . 3.Follow with Dr. Evans in 2 weeks. Laboratory Data: Upon admission to rehab floor, . Last blood test from yesterday __. Hospital Course: 69-year-old male patient, admitted to rehab floor when he was brought in from [facility]. The patient had fallen down and had fracture of the left humerus. This was treated wit h conservative management, did not require any surgical intervention. The [facility] was [facility], where Dr. Cardoza provided rehab therapy and the patient participated well. Overall, his condit ion has improved. On December 03, 2024, the patient had episode of low blood pressure while he was si tting in the chair; this was about 1 to 2 hours after he received morning dose of amlodipine 5 mg. H is systolic blood pressure had dropped down to 76 systolic blood pressure range and the patient had n ear syncopal episode while he was sitting, so he was brought back to bed. Once he was placed in bed, his blood pressure came up and the patient was back to his normal self. Since that time, we discont inued amlodipine. On that particular day, his orthostatic vital signs were checked and his supine bl ood pressure was 115/56, sitting blood pressure 103/59, and standing blood pressure was 84/52. Dr. Kirill durán started him on midodrine 10 mg 2 times a day and he has done very well with that. Today, his orthostatic vitals were checked and supine blood pressure was 131/70, sitting blood pressure 105/64, and standing blood pressure was 103/61. Overall, the patient's condition has improved. Today, he w ill be discharged to go home with his , in stable condition. Final Diagnoses: 1.Fracture, left humerus. 2.Hypertension. 3.Coronary artery disease. Total time spent today, 45 minutes. SANDRA/MODL Voice ID: [id number] Report ID: [id number]
== END 2024-12-11 12:05 | disposition home health service (06) | DRG 561 ==
LOC: 5TH 13:20
PROVIDERS: ADMIT Internal Medicine; ATTEND Internal Medicine
DX: S42.302D Unspecified fracture of shaft of humerus, left arm, subsequent encounter for fracture with routine healing (principal); I25.10 Atherosclerotic heart disease of native coronary artery without angina pectoris; N40.0 Benign prostatic hyperplasia without lower urinary tract symptoms; K21.9 Gastro-esophageal reflux disease without esophagitis; I10 Essential (primary) hypertension; F02.80 Dementia in other diseases classified elsewhere, unspecified severity, without behavioral disturbance, psychotic disturbance, mood disturbance, and anxiety; I25.2 Old myocardial infarction; R13.10 Dysphagia, unspecified; D64.9 Anemia, unspecified; M47.812 Spondylosis without myelopathy or radiculopathy, cervical region; M48.02 Spinal stenosis, cervical region; G20.B1 Parkinson's disease with dyskinesia, without mention of fluctuations; E78.5 Hyperlipidemia, unspecified; I95.1 Orthostatic hypotension; E86.0 Dehydration; R33.9 Retention of urine, unspecified; F32.A Depression, unspecified; K59.00 Constipation, unspecified
CPT/HCPCS: 36415; 80048; 80053; 81001; 82040; 83735; 84134; 85025; 87086; 87088; 92523; 97110; 97116; 97129; 97163; 97165; 97530; 97542; J2003; J3420; J7030

== ENCOUNTER 2025-02-03 21:51 | Emergency (ER) | payer OTHER ==
[2025-02-03 22:25] LABS: Absolute Basophils 0.1 K/uL (0-0.5); Absolute Eosinophils 0.1 K/uL (0-0.5); Absolute Lymphocytes (CBC) 1.5 K/uL (0.7-4.9); Absolute Monocytes 0.6 K/uL (0.1-1.3); Absolute Neutrophil 4.6 K/uL (1.8-8.0); Eosinophils % 1.9 % (0-4.4); Hemoglobin 11.3 g/dL (13.6-17.9); Lymphocytes % 22.2 % (15.3-44.8); MCH 28.2 pg (27.0-35.0); MCHC 34.3 g/dL (32.0-36.0); MCV 82.3 fL (80-100); MPV 8.5 fL (7.6-11.3); Neutrophils % 66.9 % (41.7-73.7); Nucleated Red Blood Cells % 0.2 % (0-0); Platelets 234 thou/uL (152-406); RBC Red Blood Cell Count 4.01 M/uL (4.33-5.43); Red Cell Distribution Width 17.6 % (12.1-15.2)
--- NOTE | 2025-02-03 22:25 | RAD REPORT ---
EXAM: Chest Single View HISTORY: 69 years Male STROKE WORK UP COMPARISON: 11/23/2024 FINDINGS: LUNGS/PLEURA: The lungs are clear. No pleural effusions or pneumothorax. No pulmonary edema. CARDIAC/MEDIASTINUM: Mild cardiomegaly UPPER ABDOMEN: No significant abnormality. BONES: No acute abnormality. LINES/TUBES/OTHER: N/A IMPRESSION: No evidence of acute cardiopulmonary disease. No significant change from prior.
[2025-02-03 22:35] LABS: PT Prothrombin Time 12.3 SECONDS (10-13.0); PTT, Activated Partial Thromb 30.1 SECONDS (27.2-37.4); Protime INR 1.08
--- NOTE | 2025-02-03 22:36 | RAD REPORT ---
EXAMINATION: Head Brain Wo Cont CLINICAL INDICATION: Male, 69 years old.LEFT SIDED WEAKNESS, R/O STROKE TECHNIQUE: Axial CT images from the skull base to the vertex without intravenous contrast. Coronal an d sagittal reformatted images were created from the data set. One or more of the following dose reduction techniques were used: Automated exposure control, adjustment of the mA and/or kV according to patient size, and/or iterative reconstruction. Unless otherwise specified, incidental findings do not require dedicated imaging follow-up. [id number]. COMPARISON: 02/10/2024 FINDINGS: INTRACRANIAL: No acute intracranial hemorrhage. No hydrocephalus. No mass effect or midline shift. Mo derate chronic small vessel ischemic changes.Severe cerebral atrophy. Remote bilateral basal ganglia lacunar infarct. VASCULATURE: Intracranial atherosclerotic changes. SCALP/SKULL: No calvarial fracture identified. No acute soft tissue abnormality. SINUSES: Left maxillary sinus mucus retention cyst. No significant mastoid fluid. IMPRESSION: No acute intracranial abnormality. Chronic changes as noted above.
[2025-02-03 22:51] LABS: ALT/SGPT < 14 U/L (16-61); AST/SGOT < 10 U/L (15-37); Albumin 3.4 g/dL (3.4-5.0); Albumin/Globulin Ratio 0.9 (1.1-1.8); Alkaline Phosphatase 161 U/L (45-117); Anion Gap 7.8 mEq/L (5.0-15.0); BUN Blood Urea Nitrogen 31 mg/dL (7-18); Bicarbonate 28 mEq/L (21-32); Bilirubin Direct < 0.2 mg/dL (0-0.2); Bilirubin Indirect, Calculated 0.1 mg/dL (0.2-0.8); Bilirubin Total 0.3 mg/dL (0.2-1.0); Globulin 3.9 g/dL (2.3-3.5); Glomerular Filtration Rate 51 ml/min (=/>90); Glucose Level 129 mg/dL (74-106); Potassium 3.8 mEq/L (3.5-5.1); Protein, Total 7.3 g/dL (6.4-8.2); Sodium Level 140 mEq/L (136-145); Troponin High Sensitivity 8.5 pg/mL (<58.9)
--- NOTE | 2025-02-04 00:28 | RAD REPORT ---
ADDENDUM #1 ADDENDUM: THIS REPORT CONTAINS FINDINGS THAT MAY BE CRITICAL TO PATIENT'S CARE: The findings were verbally discussed via telephone conference with Sukhdeep Thakur MD by Dr. Garrett michaels on 02/04/2025 12:13 AM CDT. The results were acknowledged and understood. Electronically signed by: Thompson Sims DO 02/04/2025 12:15 AM CDT 9 End of Addendum PROCEDURE: CT Angiography Head and Neck With Intravenous Contrast CLINICAL INDICATION: The patient is 69 years old and is Male; left weakness TECHNIQUE: [place] [facility] [place]/head and neck CT angiography protocol performed with intravenous contrast. This CT exam was performed using one or more of the following dose reduction techniques: automated exposure control, adjustment of the mA and/or kV according to patient size, and/or use of iterative r econstruction technique. MIP reconstructed images were created and reviewed. DLP: 371 mGy*cm COMPARISON: CT head without contrast of the same day. FINDINGS: HEAD: RIGHT ANTERIOR CEREBRAL ARTERY: Unremarkable. No occlusion or significant stenosis. Anterior co mmunicating artery is present. No aneurysm. RIGHT MIDDLE CEREBRAL ARTERY: Suggested stenosis of the right M2 segment superior division with mil d paucity of distal branches. No aneurysm. RIGHT POSTERIOR CEREBRAL ARTERY: Unremarkable. No occlusion or significant stenosis. No aneurys m. RIGHT INTRACRANIAL INTERNAL CAROTID ARTERY: Unremarkable. No significant stenosis. No dissectio n or occlusion. RIGHT INTRACRANIAL VERTEBRAL ARTERY: Unremarkable. No significant stenosis. No dissection or oc clusion. LEFT ANTERIOR CEREBRAL ARTERY: Unremarkable. No occlusion or significant stenosis. No aneurysm. LEFT MIDDLE CEREBRAL ARTERY: Unremarkable. No occlusion or significant stenosis. No aneurysm. LEFT POSTERIOR CEREBRAL ARTERY: Unremarkable. No occlusion or significant stenosis. No aneurysm . LEFT INTRACRANIAL INTERNAL CAROTID ARTERY: Unremarkable. No significant stenosis. No dissection or occlusion. LEFT INTRACRANIAL VERTEBRAL ARTERY: Unremarkable. No significant stenosis. No dissection or occ lusion. BASILAR ARTERY: Unremarkable. No occlusion or significant stenosis. No aneurysm. OTHER VASCULATURE: High-grade stenosis versus focal occlusion of the right V4 segment at the origin of the PICA. BRAIN AND EXTRA-AXIAL SPACES: Cerebral volume loss and chronic small vessel ischemic changes. ORBITS: Prior cataract surgery. NECK: RIGHT COMMON CAROTID ARTERY: Unremarkable. No significant stenosis. No dissection or occlusion. RIGHT EXTRACRANIAL INTERNAL CAROTID ARTERY: Unremarkable. No significant stenosis. No dissectio n or occlusion. RIGHT EXTERNAL CAROTID ARTERY: Unremarkable. No occlusion. RIGHT EXTRACRANIAL VERTEBRAL ARTERY: Nondominant right vertebral artery. No significant stenosis. No dissection or occlusion. LEFT COMMON CAROTID ARTERY: Unremarkable. No significant stenosis. No dissection or occlusion. LEFT EXTRACRANIAL INTERNAL CAROTID ARTERY: Unremarkable. No significant stenosis. No dissection or occlusion. LEFT EXTERNAL CAROTID ARTERY: Unremarkable. No occlusion. LEFT EXTRACRANIAL VERTEBRAL ARTERY: Unremarkable. No significant stenosis. No dissection or occ lusion. LUNG APICES: Visualized lung zones are clear. HEAD and NECK: BONES/JOINTS: Multilevel degenerative changes of cervical spine. Diffuse osteopenia. No discrete lytic or blastic abnormalities. SOFT TISSUES: Unremarkable. CAROTID STENOSIS REFERENCE USING NASCET CRITERIA: % ICA stenosis = (1 - narrowest ICA diameter/diameter of distal cervical ICA) x 100. Mild - <50% stenosis. Moderate - 50-69% stenosis. Severe - 70-94% stenosis. Near occlusion - 95-99% stenosis. Occluded - 100% stenosis. IMPRESSION: 1. 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 2. Suggested stenosis of the right M2 segment superior division with mild paucity of distal branche s. 3. No cervical flow limiting stenosis. 4. Cerebral volume loss and chronic small vessel ischemic changes. Consider MRI brain for further evaluation. Electronically signed by: Thompson Sims DO 02/04/2025 12:10 AM CDT 9 Due to temporary technical issues with the [employer] reporting system, reports are being albaro d by the in-house radiologist without review as a courtesy to ensure prompt reporting the interpreting radiologist is fully responsible for the content of the report. Transcribed Date/Time: 02/04/2025 12:28 AM
--- NOTE | 2025-02-04 00:36 | EDPHYS ---
Physician Documentation [facility] Name: Mandeep Aguirre Age: 69 yrs Sex: Male : 1955 Arrival Date: 02/03/2025 Time: 21:51 Bed 3 Private MD: ED Physician Sukhdeep Thakur HPI: 02/03 22:15 This 69 yrs old Male presents to ER via EMS with complaints of Weakness. sp4 02/04 00:53 Patient's home medications include aspirin 81 mg daily, Plavix 75 mg daily, carbidopa sp4 levodopa 71488, memantine, metoprolol, omeprazole, Zoloft, tamsulosin. 00:55 Patient has developed left-sided weakness at home at about 1 PM today. Patient's sp4 brought him patient today for persistent left-sided weakness and inability to get up to walk. Patient on arrival has difficult time answering questions. He appears to have generalized weakness. Also has history of recent left humerus fracture, history of anemia, history of coronary artery disease, history of hypertension, hyperlipidemia, COPD, BPH, cervical spondylosis, cervical spinal stenosis.. Historical: - PMHx: 02/03 21:55 Dementia; Hypertension; Myocardial infarction; kd3 - Immunization history:: Adult Immunizations up to date. - Infectious Disease History:: Denies. - Social history:: Smoking status: unknown. - Family history:: not pertinent. ROS: 02/04 01:23 Constitutional: Negative for fever, chills, and weight loss, positive for acute sp4 left-sided weakness Eyes: Negative for injury, pain, redness, and discharge, All other systems are negative, Exam: 01:23 Constitutional: This is a well developed, well nourished patient who appears sp4 physically deconditioned and has difficult time cooperating with exam. Patient has difficult time answering. Patient has some speech impediment. Able to answer basic questions. Head/Face: Normocephalic, atraumatic. Eyes: Pupils equal round and reactive to light, extra-ocular motions intact. Lids and lashes normal. Conjunctiva and sclera are not injected. Cornea within normal limits. Periorbital areas with no swelling, redness, or edema. ENT: Nares patent. No nasal discharge, no septal abnormalities noted. Tympanic membranes are normal and external auditory canals are clear. Oropharynx with no redness, swelling, or masses, exudates, or evidence of obstruction, uvula midline. Mucous membranes moist. Neck: Trachea midline, no thyromegaly or masses palpated, and no cervical lymphadenopathy. Supple, full range of motion without nuchal rigidity, or vertebral point tenderness. Chest/axilla: Normal chest wall appearance and motion. Nontender with no deformity. No lesions are appreciated. Cardiovascular: Regular rate and rhythm with a normal S1 and S2. No gallops, murmurs, or rubs. Normal PMI, no JVD. No pulse deficits. Respiratory: Lungs have equal breath sounds bilaterally, clear to auscultation and percussion. No rales, rhonchi or wheezes noted. No increased work of breathing, no retractions or nasal flaring. Abdomen/GI: Soft, with normal bowel sounds. No distension or tympany. No guarding or rebound. No evidence of tenderness throughout. Back: No spinal tenderness. No costovertebral tenderness. Male : Normal genitalia with no discharge or lesions. Skin: Warm, dry with normal turgor. Normal color with no rashes, no lesions, and no evidence of cellulitis. MS/ Extremity: Pulses equal, no cyanosis. Neurovascular intact. Full, normal range of motion. Neuro: Based on exam patient has to be prompted to awaken and cooperate. Able to answer basic questions, 4 out of 5 left-sided arm and leg weakness, mild dysarthria. 01:23 ECG was reviewed by the Attending Physician. EKG 2216 normal sinus rhythm rate 78, sp4 left anterior fascicular block, supraventricular complexes, Vital Signs: 02/03 22:04 BP 150 / 76; Pulse 76; Resp 16; Temp 98.2(O); Pulse Ox 98% on R/A; kd3 02/04 00:09 BP 163 / 78; Pulse 67; Resp 18; Pulse Ox 98% on R/A; kd3 01:03 Weight 71.67 kg; kd3 02:05 BP 165 / 80; Pulse 67; Resp 16; Pulse Ox 99% on R/A; kd3 NIH Stroke Scale Scores: 02/03 22:00 NIHSS Score: 4 kd3 22:44 NIHSS Score: 4 sp4 23:00 NIHSS Score: 4 kd3 02/04 01:30 NIHSS Score: 4 kd3 02:02 NIHSS Score: 4 kd3 Benjamin Coma Score: 01:23 Eye Response: to voice(3). Motor Response: obeys commands(6). Verbal Response: sp4 confused(4). Total: 13. Procedures: 02/03 22:44 Performed none. sp4 MDM: 22:16 Medical Screening Exam initiated sp4 22:44 ED course: Patient's deficits were reported at approximately 1 PM which puts him out of sp4 the window. It was noted that patient was leaning to the left side and was weak in the left leg. Patient has significant difficulty cooperating with exam secondary to Parkinson's disease. Patient has also very significant difficulty responding to questions seems borderline lethargic. Difficult to arouse. But does answer questions correctly when awakened. Patient is also on Plavix and aspirin which means tenecteplase is unsafe. At this time no indication for tenecteplase infusion, will pursue CT angiography head and neck.. 02/04 00:18 ED course: CLINICAL INDICATION: The patient is 69 years old and is Male; left weakness sp4 TECHNIQUE: [place] [facility] [place]/head and neck CT angiography protocol performed with intravenous contrast. This CT exam was performed using one or more of the following dose reduction techniques: automated exposure control, adjustment of the mA and/or kV according to patient size, and/or use of iterative reconstruction technique. MIP reconstructed images were created and reviewed. DLP: 371 mGy*cm COMPARISON: CT head without contrast of the same day. FINDINGS: HEAD: RIGHTANTERIOR CEREBRAL ARTERY: Unremarkable. No occlusion or significant stenosis. Anterior communicating artery is present. No aneurysm. RIGHT MIDDLE CEREBRAL ARTERY: Suggested stenosis of the right M2 segment superior division with mild paucity of distal branches. No aneurysm. RIGHT POSTERIOR CEREBRAL ARTERY: Unremarkable. No occlusion or significant stenosis. No aneurysm. RIGHT INTRACRANIAL INTERNAL CAROTID ARTERY: Unremarkable. No significant stenosis. No dissection or occlusion. RIGHT INTRACRANIAL VERTEBRAL ARTERY: Unremarkable. No significant stenosis. No dissection or occlusion. LEFTANTERIOR CEREBRAL ARTERY: Unremarkable. No occlusion or significant stenosis. No aneurysm. LEFT MIDDLE CEREBRAL ARTERY: Unremarkable. No occlusion or significant stenosis. No aneurysm. LEFT POSTERIOR CEREBRAL ARTERY: Unremarkable. No occlusion or significant stenosis. No aneurysm. LEFT INTRACRANIAL INTERNAL CAROTID ARTERY: Unremarkable. No significant stenosis. No dissection or occlusion. LEFT INTRACRANIAL VERTEBRAL ARTERY: Unremarkable. No significant stenosis. No dissection or occlusion. BASILAR ARTERY: Unremarkable. No occlusion or significant stenosis. No aneurysm. OTHER VASCULATURE: High-grade stenosis versus focal occlusion of the right V4 segment at the origin of the PICA. BRAIN AND EXTRA-AXIAL SPACES: Cerebral volume loss and chronic small vessel ischemic changes. ORBITS: Prior cataract surgery. NECK: RIGHT COMMON CAROTID ARTERY: Unremarkable. No significant stenosis. No dissection or occlusion. RIGHT EXTRACRANIAL INTERNAL CAROTID ARTERY: Unremarkable. No significant stenosis. No dissection or occlusion. RIGHT EXTERNAL CAROTID ARTERY: Unremarkable. No occlusion. RIGHT EXTRACRANIAL VERTEBRAL ARTERY: Nondominant right vertebral artery. No significant stenosis. No dissection or occlusion. LEFT COMMON CAROTID ARTERY: Unremarkable. No significant stenosis. No dissection or occlusion. LEFT EXTRACRANIAL INTERNAL CAROTID ARTERY: Unremarkable. No significant stenosis. No dissection or occlusion. LEFT EXTERNAL CAROTID ARTERY: Unremarkable. No occlusion. LEFT EXTRACRANIAL VERTEBRAL ARTERY: Unremarkable. No significant stenosis. No dissection or occlusion. LUNG APICES: Visualized lung zones are clear. HEAD and NECK: BONES/JOINTS: Multilevel degenerative changes of cervical spine. Diffuse osteopenia. No discrete lytic or blastic abnormalities. SOFT TISSUES: Unremarkable. CAROTID STENOSIS REFERENCE USING NASCET CRITERIA: % ICA stenosis = (1 - narrowest ICA diameter/diameter of distal cervical ICA) x 100. Mild - <50% stenosis. Moderate - 50-69% stenosis. Severe - 70-94% stenosis. Near occlusion - 95-99% stenosis. Occluded - 100% stenosis. IMPRESSION: 1. 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 2. Suggested stenosis of the right M2 segment superior division with mild paucity of distal branches. 3. No cervical flow limiting stenosis. 4. Cerebral volume loss and chronic small vessel ischemic changes. Consider MRI brain for further evaluation. Electronically signed by: Thompson Sims DO 02/04/2025 12:10 AM . 00:34 ED course: IMPRESSION: 1. High-grade stenosis versus focal occlusion of the right V4 sp4 segment at the origin of the PICA. 2. Suggested stenosis of the right M2 segment superior division with mild paucity of distal branches. 3. No cervical flow limiting stenosis. 4. Cerebral volume loss and chronic small vessel ischemic changes. Consider MRI brain for further evaluation.. 00:38 ED course: [address] [address] sp4 RADIOLOGYSERVICES REPORT Name: MANDEEP AGUIRRE Acct Number: [id number] :1955 Age:69 Sex:M Ord Phys: Sukhdeep Thakur MD Unit Number: [id number] Prim Care Dr: Hoang Álvarez MD Status: REG ER ER Exam Date: 02/03/25 EXAMINATION: Head Brain Wo Cont CLINICAL INDICATION: Male, 69 years old.LEFT SIDED WEAKNESS, R/O STROKE TECHNIQUE: Axial CT images from the skull base to the vertex without intravenous contrast. Coronal and sagittal reformatted images were created from the data set. One or more of the following dose reduction techniques were used: Automated exposure control, adjustment of the mA and/or kV according to patient size, and/or iterative reconstruction. Unless otherwise specified, incidental findings do not require dedicated imaging follow-up. [id number]. COMPARISON: 02/10/2024 FINDINGS: INTRACRANIAL: No acute intracranial hemorrhage. No hydrocephalus. No mass effect or midline shift. Moderate chronic small vessel ischemic changes.Severe cerebral atrophy. Remote bilateral basal ganglia lacunar infarct. VASCULATURE: Intracranial atherosclerotic changes. SCALP/SKULL: No calvarial fracture identified. No acute soft tissue abnormality. SINUSES: Left maxillary sinus mucus retention cyst. No significant mastoid fluid. IMPRESSION: No acute intracranial abnormality. Chronic changes as noted above . 01:27 Data reviewed: vital signs, nurses notes, EMS record, lab test result(s), radiologic sp4 studies, CT scan, plain films. Consideration of Admission/Observation Escalation of care including admission/observation considered. Management of patient was discussed with the following: Electrical Automation Engineer: Neurology at [facility] . ED course: Patient was transferred to [facility] for acute left-sided hemiparesis associated with right MCA M2 stenosis. Also right PICA V4 segment stenosis. Hemodynamically stable. Initiated on heparin.. 02/03 22:10 Order name: Basic Metabolic Panel; Complete Time: 00:52 kd3 02/03 22:10 Order name: CBC with Diff; Complete Time: 22:43 kd3 02/03 22:10 Order name: High Sensitivity Troponin; Complete Time: 00:52 kd3 02/03 22:10 Order name: Protime (+inr); Complete Time: 22:43 kd3 02/03 22:10 Order name: Ptt, Activated; Complete Time: 22:43 kd3 02/03 22:33 Order name: Liver (Hepatic) Function; Complete Time: 00:52 EDMS 02/03 22:33 Order name: T4 Free; Complete Time: 00:52 EDMS 02/03 22:33 Order name: Thyroid Stimulating Hormone; Complete Time: 00:52 EDMS 02/03 22:10 Order name: Stroke CXR 1 View; Complete Time: 22:29 kd3 02/03 22:21 Order name: Head Brain Wo Cont; Complete Time: 22:43 EDMS 02/03 22:42 Order name: CT Head Angio; Complete Time: 00:52 sp4 02/03 22:42 Order name: CT Neck Angio; Complete Time: 00:52 4 02/03 22:10 Order name: Accucheck; Complete Time: 00:09 3 02/03 22:10 Order name: Cardiac monitoring; Complete Time: 22:21 3 02/03 22:10 Order name: EKG - Nurse/Tech; Complete Time: 22:21 3 02/03 22:10 Order name: IV Saline Lock; Complete Time: 22:21 3 02/03 22:10 Order name: Labs collected and sent; Complete Time: 22:21 3 02/03 22:10 Order name: NPO; Complete Time: 22:21 3 02/03 22:10 Order name: O2 Per Protocol; Complete Time: 22:21 3 02/03 22:10 Order name: O2 Sat Monitoring; Complete Time: 22:21 3 02/04 00:36 Order name: NPO; Complete Time: 01:14 sp4 EC/19 22:16 Rate is 78 beats/min. Rhythm is regular, Normal Sinus Rhythm with PACs. QRS Walsh is sp4 Normal. WA interval is normal. QRS interval is prolonged. QT interval is normal. No Q waves. T waves are Normal. No ST changes noted. Clinical impression: No evidence of ischemia. Interpreted by me. Reviewed by me. Administered Medications: 02/04 01:12 Drug: HEParin IV 5000 units IV at bolus once {Co-Signature: dd2 (MITA CHOWDHURY RN).} kd3 Route: IV; Rate: bolus; Site: left forearm; 01:12 Drug: Heparin (ME Drip) 12 units/kg/hr - ([place] [address] units, D5W IV 500 ml) IV at kd3 calculated rate Per protocol; Max initial rate 1000 units/hr {Co-Signature: dd2 (MITA CHOWDHURY RN).} Route: IV; Rate: calculated rate; Site: left forearm; 01:53 Drug: NS 0.9% IV 500 ml 500 ml IV at 1 bolus once; to be given as a bolus over 30 kd3 minutes Volume: 500 ml; Route: IV; Rate: 1 bolus; Site: right antecubital; Disposition Summary: 02/04/25 00:35 Transfer Ordered Notes: Reason: Higher level of care sp4 Condition: Stable sp4 Problem: new sp4 Symptoms: have improved sp4 Transfer Location: [facility](02/04/25 01:21) sp4 Accepting Physician: [facility] (02/04/25 02:22) kd3 Diagnosis - Acute left-sided hemiparesis, subacute right PICA V4 segment stenosis sp4 - Right MCA M2 segment stenosis sp4 - Acute CVA, out of the window for tenecteplase sp4 Forms: - Medication Reconciliation Form sp4 - SBAR form sp4 Critical care time excluding procedures: 00:38 Critical care time: Bedside Care: 36 minutes, Consultation: 12 minutes, Family sp4 Intervention: 12 minutes. Total time: 60 minutes NIH Stroke Scale - NIH Stroke Score Date: 02/03/2025 Time: 22:00 Total Score = 4 10. Dysarthria (speech clarity - read or repeat words) - 1(Mild to Moderate) 11. Extinction and Inattention (visual/tactile/auditory/spatial/personal) - 0(No abnormality) 1a. Level of Consciousness (LOC) - 1(Not Alert) 1b. Level of Consciousness (LOC) (Month \T\ Age) - 0(Both) 1c. LOC Commands (Open \T\ Closes Eyes/Supervisor Buffing And Pasting) - 0(Both) 2. Best Gaze (Lateral Gaze Paresis) - 0(Normal) 3. Visual Field Loss - 0(No visual loss) 4. Facial Palsy - 0(Normal) 5a. Left Arm: Motor (10-second hold) - 1(Drift) 5b. Right Arm: Motor (10-second hold) - 0(No drift) 6a. Left Leg: Motor (5-second hold - always test supine) - 1(Drift) 6b. Right Leg: Motor (5-second hold - always test supine) - 0(No drift) 7. Limb Ataxia (finger/nose \T\ heel/gooden - test with eyes open) - 0(Absent) 8. Sensory Loss (pinprick arms/legs/face) - 0(Normal) 9. Best Language: Aphasia (description/naming/reading) - 0(No aphasia) Initials: kd3 NIH Stroke Scale - NIH Stroke Score Date: 02/03/2025 Time: 22:44 Total Score = 4 10. Dysarthria (speech clarity - read or repeat words) - 1(Mild to Moderate) 11. Extinction and Inattention (visual/tactile/auditory/spatial/personal) - 0(No abnormality) 1a. Level of Consciousness (LOC) - 1(Not Alert) 1b. Level of Consciousness (LOC) (Month \T\ Age) - 0(Both) 1c. LOC Commands (Open \T\ Closes Eyes/Supervisor Buffing And Pasting) - 0(Both) 2. Best Gaze (Lateral Gaze Paresis) - 0(Normal) 3. Visual Field Loss - 0(No visual loss) 4. Facial Palsy - 0(Normal) 5a. Left Arm: Motor (10-second hold) - 1(Drift) 5b. Right Arm: Motor (10-second hold) - 0(No drift) 6a. Left Leg: Motor (5-second hold - always test supine) - 1(Drift) 6b. Right Leg: Motor (5-second hold - always test supine) - 0(No drift) 7. Limb Ataxia (finger/nose \T\ heel/gooden - test with eyes open) - 0(Absent) 8. Sensory Loss (pinprick arms/legs/face) - 0(Normal) 9. Best Language: Aphasia (description/naming/reading) - 0(No aphasia) Initials: sp4 NIH Stroke Scale - NIH Stroke Score Date: 02/03/2025 Time: 23:00 Total Score = 4 10. Dysarthria (speech clarity - read or repeat words) - 1(Mild to Moderate) 11. Extinction and Inattention (visual/tactile/auditory/spatial/personal) - 0(No abnormality) 1a. Level of Consciousness (LOC) - 1(Not Alert) 1b. Level of Consciousness (LOC) (Month \T\ Age) - 0(Both) 1c. LOC Commands (Open \T\ Closes Eyes/Supervisor Buffing And Pasting) - 0(Both) 2. Best Gaze (Lateral Gaze Paresis) - 0(Normal) 3. Visual Field Loss - 0(No visual loss) 4. Facial Palsy - 0(Normal) 5a. Left Arm: Motor (10-second hold) - 1(Drift) 5b. Right Arm: Motor (10-second hold) - 0(No drift) 6a. Left Leg: Motor (5-second hold - always test supine) - 1(Drift) 6b. Right Leg: Motor (5-second hold - always test supine) - 0(No drift) 7. Limb Ataxia (finger/nose \T\ heel/gooden - test with eyes open) - 0(Absent) 8. Sensory Loss (pinprick arms/legs/face) - 0(Normal) 9. Best Language: Aphasia (description/naming/reading) - 0(No aphasia) Initials: kd3 NIH Stroke Scale - NIH Stroke Score Date: 02/04/2025 Time: :30 Total Score = 4 10. Dysarthria (speech clarity - read or repeat words) - 1(Mild to Moderate) 11. Extinction and Inattention (visual/tactile/auditory/spatial/personal) - 0(No abnormality) 1a. Level of Consciousness (LOC) - 1(Not Alert) 1b. Level of Consciousness (LOC) (Month \T\ Age) - 0(Both) 1c. LOC Commands (Open \T\ Closes Eyes/Supervisor Buffing And Pasting) - 0(Both) 2. Best Gaze (Lateral Gaze Paresis) - 0(Normal) 3. Visual Field Loss - 0(No visual loss) 4. Facial Palsy - 0(Normal) 5a. Left Arm: Motor (10-second hold) - 1(Drift) 5b. Right Arm: Motor (10-second hold) - 0(No drift) 6a. Left Leg: Motor (5-second hold - always test supine) - 1(Drift) 6b. Right Leg: Motor (5-second hold - always test supine) - 0(No drift) 7. Limb Ataxia (finger/nose \T\ heel/gooden - test with eyes open) - 0(Absent) 8. Sensory Loss (pinprick arms/legs/face) - 0(Normal) 9. Best Language: Aphasia (description/naming/reading) - 0(No aphasia) Initials: kd3 NIH Stroke Scale - NIH Stroke Score Date: 02/04/2025 Time: 02:02 Total Score = 4 10. Dysarthria (speech clarity - read or repeat words) - 1(Mild to Moderate) 11. Extinction and Inattention (visual/tactile/auditory/spatial/personal) - 0(No abnormality) 1a. Level of Consciousness (LOC) - 1(Not Alert) 1b. Level of Consciousness (LOC) (Month \T\ Age) - 0(Both) 1c. LOC Commands (Open \T\ Closes Eyes/Supervisor Buffing And Pasting) - 0(Both) 2. Best Gaze (Lateral Gaze Paresis) - 0(Normal) 3. Visual Field Loss - 0(No visual loss) 4. Facial Palsy - 0(Normal) 5a. Left Arm: Motor (10-second hold) - 1(Drift) 5b. Right Arm: Motor (10-second hold) - 0(No drift) 6a. Left Leg: Motor (5-second hold - always test supine) - 1(Drift) 6b. Right Leg: Motor (5-second hold - always test supine) - 0(No drift) 7. Limb Ataxia (finger/nose \T\ heel/goodne - test with eyes open) - 0(Absent) 8. Sensory Loss (pinprick arms/legs/face) - 0(Normal) 9. Best Language: Aphasia (description/naming/reading) - 0(No aphasia) Initials: kd3 Signatures: Dispatcher [employer] EDKY Dunia Kumar RN RN kd3 Sukhdeep Thakur MD MD sp4 MITA CHOWDHURY RN dd2 Corrections: (The following items were deleted from the chart) 02/03 22:11 22:11 Chest Single View+RAD.RAD.BRZ ordered. EDMS EDMS 22: 22:11 CT-STROKE BRAIN W/O CONTRAST+CT.RAD.BRZ ordered. EDMS EDMS 22:17 HEPATIC FUNCTION+C.LAB.BRZ ordered. EDMS EDMS 22:17 THYROID STIMULAT HORMONE+C.LAB.BRZ ordered. EDMS EDMS 22:17 T4 FREE+C.LAB.BRZ ordered. EDKY EDMS 02/04 01:14 02/03 22:10 Stroke Swallow Screen ordered. kd3 kd3 02/04 01:21 00:35 [facility]'s attending sp4 sp4 : 00:35 [facility] sp4 sp4 : 01:21 [facility] sp4 sp4 02: 01:21 [facility] sp4 kd3
--- NOTE | 2025-02-04 00:36 | ER ---
Nurse's Notes [facility] Name: Mandeep Aguirre Age: 69 yrs Sex: Male : 1955 Arrival Date: 02/03/2025 Time: 21:51 Bed 3 Private MD: Diagnosis: Acute left-sided hemiparesis, subacute right PICA V4 segment stenosis;Right MCA M2 segment stenosis;Acute CVA, out of the window for tenecteplase Presentation: 02/03 21:53 Chief complaint: EMS states: PT'S FAMILY REPORTS LEFT SIDED WEAKNESS THAT STARTED AT kd3 NOON TODAY. PT HAS A HISTORY OF DEMENTIA AND TIA. PT VSS. NO INTERVENTIONS FROM EMS. Coronavirus screen: UNKNOWN. Ebola Screen: No symptoms or risks identified at this time. Initial Sepsis Screen: Does the patient meet any 2 criteria? No. Patient's initial sepsis screen is negative. Does the patient have a suspected source of infection? No. Patient's initial sepsis screen is negative. Note NOON. Onset of symptoms was February 03, 2025 at 12:00. 21:53 Method Of Arrival: EMS: [facility] kd3 21:53 Acuity: CARLIE 3 kd3 22:23 Risk Assessment: Do you want to hurt yourself or someone else? Patient reports no kd3 desire to harm self or others. Triage Assessment: 21:55 The onset of the patients symptoms was February 03, 2025 at 12:00. General: Appears in no kd3 apparent distress. Behavior is calm, cooperative. Pain: Denies pain. Neuro: Reports weakness in left arm. Respiratory: Airway is patent Trachea midline Respiratory effort is even, unlabored, Respiratory pattern is regular, symmetrical. Historical: - PMHx: 21:55 Dementia; Hypertension; Myocardial infarction; kd3 - Immunization history:: Adult Immunizations up to date. - Infectious Disease History:: Denies. - Social history:: Smoking status: unknown. - Family history:: not pertinent. Screenin:22 [facility] ED Fall Risk Assessment (Adult) History of falling in the last 3 months, kd3 including since admission No falls in past 3 months (0 pts) Confusion or Disorientation Yes (5 pts) Intoxicated or Sedated No (0 pts) Impaired Gait Yes (1 pt) Mobility Assist Device Used Yes (1 pt) Altered Elimination No (0 pt) Score/Fall Risk Level 3 or more points = High Risk Oriented to surroundings, Maintained a safe environment, Utilized family, sitter, or virtual second crusher as indicated. Abuse screen: Denies threats or abuse. Denies injuries from another. Nutritional screening: No deficits noted. Tuberculosis screening: No symptoms or risk factors identified. Assessment: 22:01 General: NOTABLE WEAKNESS IN THE LEFT ARM AND LEFT LEG. PT IS ABLE TO ANSWER QUESTIONS, kd3 WORDS ARE NOT SLURRED BUT THE PATIENT SPEAKS VERY QUIETLY. NO FACIAL DROOP NOTED. PT HAS A HEALING FRACTURED RIGHT SHOULDER WELL AN OLD RIGHT HIP FRACTURE. . Neuro: Level of Consciousness is awake, alert, obeys commands, Oriented to person, place, situation. Neuro:. Cardiovascular: Patient's skin is warm and dry. Respiratory: Airway is patent Trachea midline Respiratory effort is even, unlabored. Musculoskeletal:. 22:23 General: IS AT THE BEDSIDE AND SATES THAT AROUND NOON HE STARTED HAVING WEAKNESS kd3 TO THE LEFT SIDE AND WAS SCOOTING IN HI WHEELCHAIR AND DRAGGING THE LEFT FOOT. . 02/04 00:11 General: Appears in no apparent distress. Behavior is calm, cooperative. kd3 01:16 General: Pt cleaned of incontinence, warm blankets provided for comfort, second IV kd3 access obtained and heparin drip started per protocol. . 02:19 General: Report given to [facility]. Pts vss. Heparin drip remains kd3 with the patient. . Vital Signs: 02/03 22:04 BP 150 / 76; Pulse 76; Resp 16; Temp 98.2(O); Pulse Ox 98% on R/A; kd3 02/04 00:09 BP 163 / 78; Pulse 67; Resp 18; Pulse Ox 98% on R/A; kd3 01:03 Weight 71.67 kg; kd3 02:05 BP 165 / 80; Pulse 67; Resp 16; Pulse Ox 99% on R/A; kd3 Harvey Coma Score: 01:23 Eye Response: to voice(3). Motor Response: obeys commands(6). Verbal Response: sp4 confused(4). Total: 13. NIH Stroke Scale Scores: 02/03 22:00 NIHSS Score: 4 kd3 22:44 NIHSS Score: 4 sp4 23:00 NIHSS Score: 4 kd3 02/04 01:30 NIHSS Score: 4 kd3 02:02 NIHSS Score: 4 kd3 ED Course: 02/03 21:53 Patient arrived in ED. kd3 21:55 Triage completed. kd3 21:55 Arm band placed on right wrist. kd3 21:56 Dunia Kumar, RN is Primary Nurse. kd3 22:11 Inserted saline lock: 20 gauge in right antecubital area, using aseptic technique. kd3 Blood collected. Flushed with 10 mL NS. 22:11 No provider procedures requiring assistance completed. Initial lab(s) drawn, by ky, kd3 sent to lab. EKG done, by ED staff. 22:15 Sukhdeep Thakur MD is Attending Physician. sp4 22:22 Patient has correct armband on for positive identification. Provided Education on: CT kd3 SCAN . 22:22 Basic Metabolic Panel Sent. kd3 22:22 CBC with Diff Sent. kd3 22:22 High Sensitivity Troponin Sent. kd3 22:22 Protime (+inr) Sent. kd3 22:22 Ptt, Activated Sent. kd3 22:23 Stroke CXR 1 View In Process Unspecified. EDMS 22:32 Head Brain Wo Cont In Process Unspecified. EDMS 23:41 CT Head Angio In Process Unspecified. EDMS 23:41 CT Neck Angio In Process Unspecified. EDMS 02/04 00:50 Initiated transfer with Luna at [facility]. rv1 01:15 Inserted saline lock: 20 gauge in left forearm, using aseptic technique. kd3 01:[address] Del Real to [facility] [address]. Report #[id number]. rv1 01:30 Luna with [facility] Transfer center initiated [facility]. NANCY at [facility] called with 33 min ETA. 02:21 Patient transferred, IV remains in place. kd3 Administered Medications: 01:12 Drug: HEParin IV 5000 units IV at bolus once {Co-Signature: dd2 (MITA CHOWDHURY RN).} kd3 Route: IV; Rate: bolus; Site: left forearm; 01:12 Drug: Heparin ([place] Drip) 12 units/kg/[place] - ([place] [address] units, D5W IV 500 ml) IV at kd3 calculated rate Per protocol; Max initial rate 1000 units/hr {Co-Signature: dd2 (MITA CHOWDHURY RN).} Route: IV; Rate: calculated rate; Site: left forearm; 01:53 Drug: NS 0.9% IV 500 ml 500 ml IV at 1 bolus once; to be given as a bolus over 30 kd3 minutes Volume: 500 ml; Route: IV; Rate: 1 bolus; Site: right antecubital; Medication: 02/03 22:23 VIS not applicable for this client. kd3 Outcome: 02/04 00:35 ER care complete, transfer ordered by sp4 02:20 Transferred by helicopter to [facility], Transfer form completed. kd3 02:20 Condition: stable 02:20 Discharge instructions given to patient, family, Instructed on the need for transfer, Demonstrated understanding of instructions, 02:22 Patient left the ED. kd3 NIH Stroke Scale - NIH Stroke Score Date: 02/03/2025 Time: 22:00 Total Score = 4 10. Dysarthria (speech clarity - read or repeat words) - 1(Mild to Moderate) 11. Extinction and Inattention (visual/tactile/auditory/spatial/personal) - 0(No abnormality) 1a. Level of Consciousness (LOC) - 1(Not Alert) 1b. Level of Consciousness (LOC) (Month \T\ Age) - 0(Both) 1c. LOC Commands (Open \T\ Closes Eyes/Equipment Specialist) - 0(Both) 2. Best Gaze (Lateral Gaze Paresis) - 0(Normal) 3. Visual Field Loss - 0(No visual loss) 4. Facial Palsy - 0(Normal) 5a. Left Arm: Motor (10-second hold) - 1(Drift) 5b. Right Arm: Motor (10-second hold) - 0(No drift) 6a. Left Leg: Motor (5-second hold - always test supine) - 1(Drift) 6b. Right Leg: Motor (5-second hold - always test supine) - 0(No drift) 7. Limb Ataxia (finger/nose \T\ heel/gooden - test with eyes open) - 0(Absent) 8. Sensory Loss (pinprick arms/legs/face) - 0(Normal) 9. Best Language: Aphasia (description/naming/reading) - 0(No aphasia) Initials: kd3 NIH Stroke Scale - NIH Stroke Score Date: 02/03/2025 Time: 22:44 Total Score = 4 10. Dysarthria (speech clarity - read or repeat words) - 1(Mild to Moderate) 11. Extinction and Inattention (visual/tactile/auditory/spatial/personal) - 0(No abnormality) 1a. Level of Consciousness (LOC) - 1(Not Alert) 1b. Level of Consciousness (LOC) (Month \T\ Age) - 0(Both) 1c. LOC Commands (Open \T\ Closes Eyes/Equipment Specialist) - 0(Both) 2. Best Gaze (Lateral Gaze Paresis) - 0(Normal) 3. Visual Field Loss - 0(No visual loss) 4. Facial Palsy - 0(Normal) 5a. Left Arm: Motor (10-second hold) - 1(Drift) 5b. Right Arm: Motor (10-second hold) - 0(No drift) 6a. Left Leg: Motor (5-second hold - always test supine) - 1(Drift) 6b. Right Leg: Motor (5-second hold - always test supine) - 0(No drift) 7. Limb Ataxia (finger/nose \T\ heel/gooden - test with eyes open) - 0(Absent) 8. Sensory Loss (pinprick arms/legs/face) - 0(Normal) 9. Best Language: Aphasia (description/naming/reading) - 0(No aphasia) Initials: sp4 NIH Stroke Scale - NIH Stroke Score Date: 02/03/2025 Time: 23:00 Total Score = 4 10. Dysarthria (speech clarity - read or repeat words) - 1(Mild to Moderate) 11. Extinction and Inattention (visual/tactile/auditory/spatial/personal) - 0(No abnormality) 1a. Level of Consciousness (LOC) - 1(Not Alert) 1b. Level of Consciousness (LOC) (Month \T\ Age) - 0(Both) 1c. LOC Commands (Open \T\ Closes Eyes/Equipment Specialist) - 0(Both) 2. Best Gaze (Lateral Gaze Paresis) - 0(Normal) 3. Visual Field Loss - 0(No visual loss) 4. Facial Palsy - 0(Normal) 5a. Left Arm: Motor (10-second hold) - 1(Drift) 5b. Right Arm: Motor (10-second hold) - 0(No drift) 6a. Left Leg: Motor (5-second hold - always test supine) - 1(Drift) 6b. Right Leg: Motor (5-second hold - always test supine) - 0(No drift) 7. Limb Ataxia (finger/nose \T\ heel/gooden - test with eyes open) - 0(Absent) 8. Sensory Loss (pinprick arms/legs/face) - 0(Normal) 9. Best Language: Aphasia (description/naming/reading) - 0(No aphasia) Initials: kd3 NIH Stroke Scale - NIH Stroke Score Date: 02/04/2025 Time: 01:30 Total Score = 4 10. Dysarthria (speech clarity - read or repeat words) - 1(Mild to Moderate) 11. Extinction and Inattention (visual/tactile/auditory/spatial/personal) - 0(No abnormality) 1a. Level of Consciousness (LOC) - 1(Not Alert) 1b. Level of Consciousness (LOC) (Month \T\ Age) - 0(Both) 1c. LOC Commands (Open \T\ Closes Eyes/Equipment Specialist) - 0(Both) 2. Best Gaze (Lateral Gaze Paresis) - 0(Normal) 3. Visual Field Loss - 0(No visual loss) 4. Facial Palsy - 0(Normal) 5a. Left Arm: Motor (10-second hold) - 1(Drift) 5b. Right Arm: Motor (10-second hold) - 0(No drift) 6a. Left Leg: Motor (5-second hold - always test supine) - 1(Drift) 6b. Right Leg: Motor (5-second hold - always test supine) - 0(No drift) 7. Limb Ataxia (finger/nose \T\ heel/gooden - test with eyes open) - 0(Absent) 8. Sensory Loss (pinprick arms/legs/face) - 0(Normal) 9. Best Language: Aphasia (description/naming/reading) - 0(No aphasia) Initials: kd3 NIH Stroke Scale - NIH Stroke Score Date: 02/04/2025 Time: 02:02 Total Score = 4 10. Dysarthria (speech clarity - read or repeat words) - 1(Mild to Moderate) 11. Extinction and Inattention (visual/tactile/auditory/spatial/personal) - 0(No abnormality) 1a. Level of Consciousness (LOC) - 1(Not Alert) 1b. Level of Consciousness (LOC) (Month \T\ Age) - 0(Both) 1c. LOC Commands (Open \T\ Closes Eyes/Equipment Specialist) - 0(Both) 2. Best Gaze (Lateral Gaze Paresis) - 0(Normal) 3. Visual Field Loss - 0(No visual loss) 4. Facial Palsy - 0(Normal) 5a. Left Arm: Motor (10-second hold) - 1(Drift) 5b. Right Arm: Motor (10-second hold) - 0(No drift) 6a. Left Leg: Motor (5-second hold - always test supine) - 1(Drift) 6b. Right Leg: Motor (5-second hold - always test supine) - 0(No drift) 7. Limb Ataxia (finger/nose \T\ heel/gooden - test with eyes open) - 0(Absent) 8. Sensory Loss (pinprick arms/legs/face) - 0(Normal) 9. Best Language: Aphasia (description/naming/reading) - 0(No aphasia) Initials: kd3 Signatures: Dispatcher [employer] Dunia Corral RN RN kd3 Nuris Stroud rv1 Sukhdeep Thakur MD MD sp4 MITA CHOWDHURY RN dd2
[2025-02-04] MEDS ORDERED: HEPARIN/D5W 25,000 UNIT/500 ML BAG IV ONE (00:58)
[2025-02-04] MEDS ORDERED: HEPARIN 5000 UNIT/ML 1 ML VIAL ONE (00:58)
[2025-02-04] MEDS ORDERED: NA CHLORIDE 0.9% 500 ML ONE (01:51)
[2025-02-04 03:57] VITALS: TEMP 98.2
[2025-02-04 03:59] VITALS: BP 165/80; O2SAT 99
--- NOTE | 2025-02-08 12:15 | EKG ---
Test Date: 2025-02-03 Test Time: 22:16:23 Dispersion Mixer: VENECIA MEASUREMENT RESULTS: Intervals: Rate: 78 NH: 200 QRSD: 100 QT: 376 QTc: 428 [place]: P: 48 NH: 200 QRS: -67 T: 99 INTERPRETIVE STATEMENTS: Sinus rhythm with premature supraventricular complexes Left anterior fascicular block Septal infarct, age undetermined Abnormal ECG Compared to ECG 11/23/2024 17:49:13 Atrial premature complex(es) now present Sinus tachycardia no longer present ST (T wave) deviation no longer present Possible ischemia no longer present Myocardial infarct finding still present Electronically Signed On 02-08-25 12:05:48 CDT by Michael Ch
== END 2025-02-04 02:22 | disposition short-term general hospital (02) ==
LOC: ER 21:51
DX: I65.01 Occlusion and stenosis of right vertebral artery (principal); I65.21 Occlusion and stenosis of right carotid artery; I10 Essential (primary) hypertension; I25.2 Old myocardial infarction; Z79.01 Long term (current) use of anticoagulants; Z79.82 Long term (current) use of aspirin
CPT/HCPCS: 93005; 85025; 80048; 36415; 85610; 80076; 85730; 84443; 84484; 84439; 70450; 70496; 70498; 71045; 96374; 99285; Q9967; J1644; J7040